=== PATIENT | female | born 1985 | race Caucasian/White ===

== ENCOUNTER 2017-05-14 09:23 | Emergency (ER) | payer SELFPAY ==
[2017-05-14] MEDS ORDERED: METHYLPREDNISOLONE 125 MG INJ ONE (09:55)
[2017-05-14] MEDS ORDERED: DIPHENHYDRAMINE 50 MG/ML VIAL ONE (09:55)
[2017-05-14] MEDS ORDERED: ALBUTEROL 2.5 MG/3 ML NEB SOL ONE (09:55)
[2017-05-14] MEDS ORDERED: FAMOTIDINE 20 MG/2 ML VIAL IV ONE (09:56)
[2017-05-14] MEDS ORDERED: NA CHLORIDE 0.9% 1,000 ML ONE (09:56)
--- NOTE | 2017-05-14 11:27 | EDPHYS ---
Physician Documentation [facility] Name: Joana Nguyen Age: 31 yrs Sex: Female : 1985 Arrival Date: 05/14/2017 Time: 09:26 Bed 8 Private MD: ED Physician Shaheen White HPI: 05/14 09:40 This 31 yrs old Female presents to ER via Ambulatory with complaints of kb Allergic Reaction. 09:40 The patient presents with shortness of breath. Onset: The symptoms/episode kb began/occurred just prior to arrival. Associated signs and symptoms: Pertinent positives: shortness of breath. Possible causes: eggs. At home the patient or guardian has treated the symptoms with nothing. Severity of symptoms: At their worst the symptoms were moderate in the emergency department the symptoms are unchanged. The patient has not experienced similar symptoms in the past. The patient has not recently seen a physician. Pt states she ate eggs at [employer] and started having an allergic reaction. Has had reactions like this in the past, but normally not from eggs. c/o wheezing, shortness of breath and sore throat. 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 - Social history:: Smoking status: Patient/guardian denies using tobacco. ROS: 09:40 Constitutional: Negative for fever, chills, and weight loss, Neck: Negative for injury, kb pain, and swelling, Cardiovascular: Negative for chest pain, palpitations, and edema, Abdomen/GI: Negative for abdominal pain, nausea, vomiting, diarrhea, and constipation, Back: Negative for injury and pain, : Negative for injury, bleeding, discharge, and swelling, MS/Extremity: Negative for injury and deformity, Skin: Negative for injury, rash, and discoloration, Neuro: Negative for headache, weakness, numbness, tingling, and seizure. 09:40 ENT: Positive for sore throat. 09:40 Respiratory: Positive for shortness of breath, wheezing. Exam: 09:40 Constitutional: This is a well developed, well nourished patient who is awake, alert, kb and in no acute distress. Head/Face: Normocephalic, atraumatic. ENT: Nares patent. No nasal discharge, no septal abnormalities noted. Tympanic membranes are normal and external auditory canals are clear. Oropharynx with no redness, swelling, or masses, exudates, or evidence of obstruction, uvula midline. Mucous membranes moist. Neck: Trachea midline, no thyromegaly or masses palpated, and no cervical lymphadenopathy. Supple, full range of motion without nuchal rigidity, or vertebral point tenderness. No Meningismus. Chest/axilla: Normal chest wall appearance and motion. Nontender with no deformity. No lesions are appreciated. Cardiovascular: Regular rate and rhythm with a normal S1 and S2. No gallops, murmurs, or rubs. Normal PMI, no JVD. No pulse deficits. Abdomen/GI: Soft, non-tender, with normal bowel sounds. No distension or tympany. No guarding or rebound. No evidence of tenderness throughout. Skin: Warm, dry with normal turgor. Normal color with no rashes, no lesions, and no evidence of cellulitis. MS/ Extremity: Pulses equal, no cyanosis. Neurovascular intact. Full, normal range of motion. Neuro: Awake and alert, GCS 15, oriented to person, place, time, and situation. Cranial nerves II-XII grossly intact. Motor strength 5/5 in all extremities. Sensory grossly intact. Cerebellar exam normal. Normal gait. 09:40 Respiratory: mild respiratory distress is noted, Respirations: normal, Breath sounds: wheezing: expiratory that is moderate, is heard diffusely. Vital Signs: 09:30 BP 144 / 96; Pulse 109; Resp 20; Temp 99.3(TE); Pulse Ox 100% on R/A; Weight 68.04 kg; hj Height 5 ft. 7 in. (170.18 cm); 10:37 BP 131 / 90; Pulse 96; Resp 18; Pulse Ox 100% on R/A; sg 11:30 BP 128 / 82; Pulse 88; Resp 18 S; Temp 98.8; Pulse Ox 100% on R/A; Pain 0/10; sg 09:30 Body Mass Index 23.49 (68.04 kg, 170.18 cm) hj MDM: 09:33 Patient medically screened. kb 10:11 Data reviewed: vital signs, nurses notes. Data interpreted: Pulse oximetry: on room air kb is 100 %. Interpretation: normal. Response to treatment: the patient's symptoms have markedly improved after treatment. 11:26 Counseling: I had a detailed discussion with the patient and/or guardian regarding: the kb historical points, exam findings, and any diagnostic results supporting the discharge/admit diagnosis, the need for outpatient follow up, a family practitioner, to return to the emergency department if symptoms worsen or persist or if there are any questions or concerns that arise at home. 05/14 09:34 Order name: IV Start; Complete Time: 09:38 kb Administered Medications: 09:45 Drug: SOLU-Medrol 125 mg Route: IVP; Site: left antecubital; sg 10:30 Follow up: Response: No adverse reaction; Marked relief of symptoms sg 09:45 Drug: Benadryl 25 mg Route: IVP; Site: left antecubital; sg 10:30 Follow up: Response: No adverse reaction; Marked relief of symptoms sg 09:45 Drug: Pepcid 20 mg Route: IVP; Site: left antecubital; sg 10:30 Follow up: Response: No adverse reaction sg 09:45 Drug: NS 0.9% 1000 ml Route: IV; Rate: 1000 ml; Site: left antecubital; sg 09:46 Drug: Albuterol 2.5 mg Route: Inhalation; sg 09:57 Follow up: Response: Wheezing diminished sg Disposition: 05/15 10:34 Co-signature as Attending Physician, Shaheen White MD I agree with the assessment and omaira plan of care. Disposition: 05/14/17 11:27 Discharged to Home. Impression: Allergy to eggs. - Condition is Stable. - Discharge Instructions: Food Allergy, [id number]. - Prescriptions for Pepcid 20 mg Oral Tablet - take 1 tablet by ORAL route every 12 hours for 5 days; 10 tablet. Prednisone 20 mg Oral Tablet - take 1 tablet by ORAL route once daily for 5 days; 5 tablet. - Medication Reconciliation Form, Thank You Letter, Antibiotic Education, Prescription Opioid Use, Work release form form. - Follow up: Private Physician; When: 2 - 3 days; Reason: Recheck today's complaints, Continuance of care, Re-evaluation by your physician. Follow up: Emergency Department; When: As needed; Reason: Worsening of condition. Signatures: Amy Eckert, COLLIN GILL-Gordy Miranda RN RN sg Anderson, Corey, MD MD cha Joaquin, Henry RN RN
--- NOTE | 2017-05-14 11:27 | ER ---
Nurse's Notes [facility] Name: Joana Nguyen Age: 31 yrs Sex: Female : 1985 Arrival Date: 05/14/2017 Time: 09:26 Bed 8 Private MD: Diagnosis: Allergy to eggs Presentation: 05/14 09:27 Presenting complaint: Patient states: i ate at [employer] this morning, eggs and i think i hj had an allergic reaction; i heard wheezing, SOB and light headed; i feel like my throat is tightening;. Transition of care: patient was not received from another setting of care. Onset: The symptoms/episode began/occurred suddenly. Onset of symptoms was May 14, 2017. Care prior to arrival: None. 09:27 Method Of Arrival: Ambulatory 09:27 Acuity: ERICKA 3 hj 09:45 Anaphylaxis evaluation, the patient reports or I have noted the following symptoms sg which indicate a significant risk of anaphylaxis: shortness of breath tachypnea. Triage Assessment: 09:30 General: Appears in no apparent distress. uncomfortable, Behavior is calm, cooperative, hj appropriate for age. Pain: Denies pain. 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 - Social history:: Smoking status: Patient/guardian denies using tobacco. Screenin:40 Abuse screen: Denies threats or abuse. Denies injuries from another. Nutritional sg screening: No deficits noted. Tuberculosis screening: No symptoms or risk factors identified. Never had TB. Fall Risk None identified. Assessment: 09:30 Respiratory: Airway is patent Respiratory effort is even, unlabored, Breath sounds with hj wheezes. 09:40 General: Appears in no apparent distress. comfortable, well groomed, well developed, sg well nourished, Behavior is cooperative, appropriate for age, anxious. Pain: Denies pain. Neuro: Level of Consciousness is awake, alert, obeys commands, Oriented to person, place, time, Tobacco Buyer are equal bilaterally Speech is normal, Facial symmetry appears normal. Cardiovascular: Heart tones S1 S2 present Capillary refill is brisk in bilateral fingers Patient's skin is warm and dry. Chest pain is denied. Respiratory: Respiratory effort is even, Respiratory pattern is symmetrical, tachypnea Breath sounds with wheezes. GI: Abdomen is round non-distended, Bowel sounds present X 4 quads. : No signs and/or symptoms were reported regarding the genitourinary system. EENT: No deficits noted. Derm: Skin is flushed, mottled, Skin temperature is warm. Musculoskeletal: No signs and/or symptoms reported regarding the musculoskeletal system. 10:08 Reassessment: Patient appears in no apparent distress at this time. Patient and/or sg family updated on plan of care and expected duration. Pain level reassessed. Patient is alert, oriented x 3, equal unlabored respirations, skin warm/dry/pink. Patient states feeling better. Patient states symptoms have improved. General: Behavior is calm, cooperative, appropriate for age. 10:25 Reassessment: Patient appears in no apparent distress at this time. Patient and/or sg family updated on plan of care and expected duration. Pain level reassessed. IV fluids infusing at this time, pt to receive bolus in entirety prior to dc to home. will continue to monitor. 11:20 Reassessment: Patient appears in no apparent distress at this time. Patient and/or sg family updated on plan of care and expected duration. Pain level reassessed. Patient is alert, oriented x 3, equal unlabored respirations, skin warm/dry/pink. IV fluids complete at this time, pt d/c to home Patient states feeling better. Patient states symptoms have improved. Vital Signs: 09:30 BP 144 / 96; Pulse 109; Resp 20; Temp 99.3(TE); Pulse Ox 100% on R/A; Weight 68.04 kg; hj Height 5 ft. 7 in. (170.18 cm); 10:37 BP 131 / 90; Pulse 96; Resp 18; Pulse Ox 100% on R/A; sg 11:30 BP 128 / 82; Pulse 88; Resp 18 S; Temp 98.8; Pulse Ox 100% on R/A; Pain 0/10; sg 09:30 Body Mass Index 23.49 (68.04 kg, 170.18 cm) ED Course: 09:26 Patient arrived in ED. mr 09:29 Triage completed. hj 09:30 Arm band placed on right wrist. hj 09:33 Amy Eckert FNP-C is PSYCHIATRICP. kb 09:33 Shaheen White MD is Attending Physician. kb 09:35 Gordy Scott, RN is Primary Nurse. sg 09:38 Inserted saline lock: 22 gauge in left antecubital area, using aseptic technique. hj 09:40 Patient has correct armband on for positive identification. Bed in low position. sg gambling monitor on. Pulse ox on. NIBP on. Warm blanket given. Head of bed elevated. 11:30 No provider procedures requiring assistance completed. IV discontinued, intact, sg bleeding controlled, No redness/swelling at site. Pressure dressing applied. Administered Medications: 09:45 Drug: SOLU-Medrol 125 mg Route: IVP; Site: left antecubital; sg 10:30 Follow up: Response: No adverse reaction; Marked relief of symptoms sg 09:45 Drug: Benadryl 25 mg Route: IVP; Site: left antecubital; sg 10:30 Follow up: Response: No adverse reaction; Marked relief of symptoms sg 09:45 Drug: Pepcid 20 mg Route: IVP; Site: left antecubital; sg 10:30 Follow up: Response: No adverse reaction sg 09:45 Drug: NS 0.9% 1000 ml Route: IV; Rate: 1000 ml; Site: left antecubital; sg 09:46 Drug: Albuterol 2.5 mg Route: Inhalation; sg 09:57 Follow up: Response: Wheezing diminished sg Outcome: 11:27 Discharge ordered by . kb 11:30 Discharged to home ambulatory, with friend. sg 11:30 Condition: good 11:30 Discharge instructions given to patient, Instructed on discharge instructions, follow up and referral plans. medication usage, safety practices, Demonstrated understanding of instructions, follow-up care, medications, Prescriptions given X 2. 11:35 Patient left the ED. sg Signatures: Amy Eckert FNP-C FNP-Ckb Gordy Scott, IAN RN Liz Villegas mr Ronny Rea RN RN hj Corrections: (The following items were deleted from the chart) 09:31 09:30 Pulse 109bpm; Resp 20bpm; Pulse Ox 100% RA; Temp 99.3F Temporal; 68.04 kg; Height hj 5 ft. 7 in.; BMI: 23.4; hj 09:39 09:30 Respiratory: Airway is patent Respiratory effort is even, unlabored, Breath hj sounds are clear hj
[2017-05-14 11:48] VITALS: TEMP 99.3; O2SAT 100
[2017-05-14 11:49] VITALS: BP 131/90
== END 2017-05-14 11:35 | disposition home or self-care (01) ==
LOC: ER 09:23
DX: R06.2 Wheezing (principal); Z91.012 Allergy to eggs; I10 Essential (primary) hypertension; G40.909 Epilepsy, unspecified, not intractable, without status epilepticus; Z88.5 Allergy status to narcotic agent
CPT/HCPCS: 96374; 96375; 99285; J2930; J7030

== ENCOUNTER 2017-06-04 13:11 | Emergency (ER) | payer SELFPAY ==
[2017-06-04 14:00] LABS: Absolute Lymphocytes (CBC) 1.7 K/uL (0.7-4.9); Absolute Monocytes 0.3 K/uL (0.1-1.3); Basophils % 0.6 % (0-1.3); Eosinophils % 2.2 % (0-4.4); Hematocrit 40.3 % (36.0-45.0); Lymphocytes % 40.6 % (15.3-44.8); MCH 29.2 pg (27.0-35.0); MCV 86.9 fL (80-100); MPV 7.7 fL (7.6-11.3); Monocytes % 7.4 % (3.3-12.3); RBC Red Blood Cell Count 4.63 M/uL (3.86-4.86)
[2017-06-04 14:17] LABS: Potassium 3.5 mEq/L (3.6-5.0)
[2017-06-04 14:20] LABS: Albumin 4.3 g/dL (3.2-5.5); Bilirubin Total 0.5 mg/dL (0.3-1.2); Protein, Total 7.4 g/dL (6.0-8.3)
[2017-06-04 14:52] LABS: Urine Blood NEGATIVE (NEG); Urine Glucose NEGATIVE (NEG); Urine Protein NEGATIVE (NEG); Urine Specific Gravity 1.025 (1.005-1.030)
[2017-06-04] MEDS ORDERED: KETOROLAC 30 MG/ML INJ ONE (15:06)
[2017-06-04] MEDS ORDERED: CYCLOBENZAPRINE 10 MG TAB ONE (15:06)
--- NOTE | 2017-06-04 15:08 | RAD REPORT ---
EXAM DESCRIPTION: Melodie Single View06/04/2017 2:12 pm CLINICAL HISTORY: Chest pain COMPARISON: March 2017 FINDINGS: The lungs appear clear of acute infiltrate. The heart is normal size IMPRESSION: No acute abnormalities displayed
--- NOTE | 2017-06-04 15:39 | EDPHYS ---
Physician Documentation [facility] Name: Joana Nguyen Age: 31 yrs Sex: Female : 1985 Arrival Date: 06/04/2017 Time: 13:13 Bed 8 Private MD: ED Physician Albert Thakkar HPI: 06/04 14:00 This 31 yrs old Female presents to ER via Ambulatory with complaints of Chest pm1 Pain. 16:52 The patient or guardian reports chest pain that is located primarily in the substernal pm1 area. The pain radiates to along right rib to the back. Associated signs and symptoms: Pertinent negatives: abdominal pain, cough, nausea, shortness of breath, vomiting, Rash. The chest pain is described as aching. Duration: The patient or guardian reports a single episode, that is still ongoing, Onset greater than 1 month ago. Modifying factors: The symptoms are alleviated by nothing. the symptoms are aggravated by deep breath, palpation of area. Severity of pain: in the emergency department the pain is unchanged. Seen at [facility] this week and told that she "has a pulled muscle.". Historical: - Allergies: 13:27 Morphine (Respiratory distress); ph - PMHx: 13:27 Hypertension; Seizures; ph - PSHx: 13:27 Tubal ligation; Cholecystectomy; hand; R breast biopsy-benign; ph - Immunization history:: Adult Immunizations up to date. - Social history:: Smoking status: unknown. ROS: 16:52 Constitutional: Negative for fever, chills, and weight loss, Eyes: Negative for injury, pm1 pain, redness, and discharge, ENT: Negative for injury, pain, and discharge, Neck: Negative for injury, pain, and swelling. 16:52 Respiratory: Negative for shortness of breath, cough, wheezing, and pleuritic chest pain, Abdomen/GI: Negative for abdominal pain, nausea, vomiting, diarrhea, and constipation, Back: Negative for injury and pain, : Negative for injury, bleeding, discharge, and swelling, MS/Extremity: Negative for injury and deformity, Skin: Negative for injury, rash, and discoloration, Neuro: Negative for headache, weakness, numbness, tingling, and seizure. 16:52 Cardiovascular: Positive for chest pain, Negative for edema, orthopnea, palpitations. Exam: 16:52 Constitutional: This is a well developed, well nourished patient who is awake, alert, pm1 and in no acute distress. Head/Face: Normocephalic, atraumatic. Eyes: Pupils equal round and reactive to light, extra-ocular motions intact. Lids and lashes normal. Conjunctiva and sclera are non-icteric and not injected. Cornea within normal limits. Periorbital areas with no swelling, redness, or edema. ENT: Nares patent. No nasal discharge, no septal abnormalities noted. Tympanic membranes are normal and external auditory canals are clear. Oropharynx with no redness, swelling, or masses, exudates, or evidence of obstruction, uvula midline. Mucous membranes moist. Neck: Trachea midline, no thyromegaly or masses palpated, and no cervical lymphadenopathy. Supple, full range of motion without nuchal rigidity, or vertebral point tenderness. No Meningismus. 16:52 Cardiovascular: Regular rate and rhythm with a normal S1 and S2. No gallops, murmurs, or rubs. No pulse deficits. Respiratory: Lungs have equal breath sounds bilaterally, clear to auscultation and percussion. No rales, rhonchi or wheezes noted. No increased work of breathing, no retractions or nasal flaring. Abdomen/GI: Soft, non-tender, with normal bowel sounds. No distension or tympany. No guarding or rebound. No evidence of tenderness throughout. Back: No spinal tenderness. No costovertebral tenderness. Full range of motion. Skin: Warm, dry with normal turgor. Normal color with no rashes, no lesions, and no evidence of cellulitis. MS/ Extremity: Pulses equal, no cyanosis. Neurovascular intact. Full, normal range of motion. 16:52 Chest/axilla: Inspection: normal, Palpation: tenderness, of the mid-sternal area, that totally reproduces the patient's complaints. 16:52 Neuro: Orientation: is normal, Motor: is normal, moves all fours, Sensation: is normal, no obvious gross deficits, Gait: is steady, at a normal pace, without difficulty. Vital Signs: 13:25 BP 143 / 105; Pulse 111; Resp 20; Temp 98.4(O); Pulse Ox 100% on R/A; Weight 70.31 kg; ph Height 5 ft. 7 in. (170.18 cm); Pain 9/10; 13:58 BP 115 / 90; Pulse 84; Resp 16; Pulse Ox 100% on R/A; la1 14:09 BP 128 / 88; Pulse 78; Resp 16; Pulse Ox 100% on R/A; la1 13:25 Body Mass Index 24.28 (70.31 kg, 170.18 cm) ph MDM: 13:18 Patient medically screened. pm1 15:37 Data reviewed: vital signs. Data interpreted: Pulse oximetry: on room air is 100 %. pm1 Interpretation: normal. Counseling: I had a detailed discussion with the patient and/or guardian regarding: the historical points, exam findings, and any diagnostic results supporting the discharge/admit diagnosis, lab results, radiology results, the need for outpatient follow up, to return to the emergency department if symptoms worsen or persist or if there are any questions or concerns that arise at home. 06/04 13:36 Order name: CBC with Diff; Complete Time: 14:08 pm1 06/04 13:36 Order name: Troponin (emerg Dept Use Only); Complete Time: 14:28 pm1 06/04 13:36 Order name: CMP; Complete Time: 14:28 pm1 06/04 14:46 Order name: Urine Dipstick--Ancillary (enter results); Complete Time: 15:22 bd 06/04 14:46 Order name: Urine --Ancillary (enter results); Complete Time: 15:22 bd 06/04 13:36 Order name: XRAY Chest (1 view); Complete Time: 15:22 pm1 06/04 13:36 Order name: EKG; Complete Time: 13:37 pm1 06/04 13:36 Order name: Cardiac monitoring; Complete Time: 13:46 pm06/04 13:36 Order name: EKG - Nurse/Tech; Complete Time: 13:46 pm1 06/04 13:36 Order name: IV Saline Lock; Complete Time: 13:46 pm06/04 13:36 Order name: Labs collected and sent; Complete Time: 13:46 pm06/04 13:36 Order name: O2 Per Protocol; Complete Time: 13:46 pm1 06/04 13:36 Order name: O2 Sat Monitoring; Complete Time: 13:46 pm06/04 13:36 Order name: Urine Dipstick-Ancillary (obtain specimen); Complete Time: 14:43 pm1 06/04 13:36 Order name: Urine Test (obtain specimen); Complete Time: 14:43 pm1 Administered Medications: 14:50 Drug: TORadol 30 mg Route: IVP; Site: right antecubital; la1 15:12 Follow up: Response: No adverse reaction; Pain is decreased la1 14:50 Drug: Flexeril 10 mg Route: PO; la1 15:12 Follow up: Response: No adverse reaction; Pain is decreased la1 Disposition: 16:13 Co-signature as Attending Physician, Albert Thakkar MD. Chart complete. rn Disposition: 06/04/17 15:38 Discharged to Home. Impression: Chest pain, unspecified. - Condition is Stable. - Discharge Instructions: Nonspecific Chest Pain. - Prescriptions for Naprosyn 500 mg Oral Tablet - take 1 tablet by ORAL route 2 times per day take with food; 30 tablet. Cyclobenzaprine 10 mg Oral Tablet - take 1 tablet by ORAL route every 8 hours As needed; 30 tablet. - Medication Reconciliation Form, Thank You Letter form. - Follow up: Emergency Department; When: As needed; Reason: Worsening of condition. Follow up: Private Physician; When: 2 - 3 days; Reason: Recheck today's complaints, Continuance of care, Re-evaluation by your physician. - Problem is new. - Symptoms have improved. Signatures: Dispatcher [employer] Albert Orr MD MD rn Attema, Lee, RN RN la1 Barbie Martinez RN RN ph Marinas, Patrick, TAMERA GREASE AND TALLOW PUMPER pm1 Corrections: (The following items were deleted from the chart) 13:38 13:36 BASIC METABOLIC PANEL+[id number].LAB.BRZ ordered. EDMD EDMD
--- NOTE | 2017-06-04 15:39 | ER ---
Nurse's Notes [facility] Name: Joana Nguyen Age: 31 yrs Sex: Female : 1985 Arrival Date: 06/04/2017 Time: 13:13 Bed 8 Private MD: Diagnosis: Chest pain, unspecified Presentation: 06/04 13:23 Presenting complaint: Patient states: I have been having pain in my chest that wraps ph around my side and goes through to my back." Pt reports pain in epigastric region that radiated to R side and back, also c/o N/V/D and reports pain w/ respiration. Transition of care: patient was not received from another setting of care. Onset of symptoms was June 04, 2017. Care prior to arrival: None. 13:23 Method Of Arrival: Ambulatory ph 13:23 Acuity: ERICKA 3 ph Historical: - Allergies: 13:27 Morphine (Respiratory distress); ph - PMHx: 13:27 Hypertension; Seizures; ph - PSHx: 13:27 Tubal ligation; Cholecystectomy; hand; R breast biopsy-benign; ph - Immunization history:: Adult Immunizations up to date. - Social history:: Smoking status: unknown. Screenin:45 Abuse screen: Denies threats or abuse. Nutritional screening: No deficits noted. la1 Tuberculosis screening: No symptoms or risk factors identified. Fall Risk None identified. Assessment: 13:44 General: Appears in no apparent distress. Behavior is calm, cooperative. Pain: la1 Complains of pain in chest Pain radiates to right lateral posterior chest and right lateral anterior chest Pain currently is 4 out of 10 on a pain scale. Pain: Pain began 2 weeks ago. Neuro: Level of Consciousness is awake, alert, obeys commands, Oriented to person, place, time, situation. Cardiovascular: Heart tones S1 S2 present Capillary refill < 3 seconds Patient's skin is warm and dry. Respiratory: Airway is patent Respiratory effort is even, unlabored, Respiratory pattern is regular, symmetrical, Breath sounds are clear bilaterally. GI: No signs and/or symptoms were reported involving the gastrointestinal system. : No signs and/or symptoms were reported regarding the genitourinary system. 14:52 Reassessment: Patient appears in no apparent distress at this time. No changes from la1 previously documented assessment. Patient and/or family updated on plan of care and expected duration. Pain level reassessed. Vital Signs: 13:25 BP 143 / 105; Pulse 111; Resp 20; Temp 98.4(O); Pulse Ox 100% on R/A; Weight 70.31 kg; ph Height 5 ft. 7 in. (170.18 cm); Pain 9/10; 13:58 BP 115 / 90; Pulse 84; Resp 16; Pulse Ox 100% on R/A; la1 14:09 BP 128 / 88; Pulse 78; Resp 16; Pulse Ox 100% on R/A; la1 13:25 Body Mass Index 24.28 (70.31 kg, 170.18 cm) ph ED Course: 13:13 Patient arrived in ED. as 13:16 Marlon Todd NP is PHCP. pm1 13:16 Albert Thakkar MD is Attending Physician. pm1 13:25 Triage completed. ph 13:27 Ángel Nunez RN is Primary Nurse. la1 13:27 Arm band placed on. ph 13:45 No provider procedures requiring assistance completed. Inserted saline lock: 20 gauge la1 in right antecubital area, using aseptic technique. Blood collected. Patient maintains SpO2 saturation greater than 95% on room air. 13:46 Placed in gown. Bed in low position. Call light in reach. industrial engineering on. Pulse ox la1 on. NIBP on. 14:11 X-ray completed. Portable x-ray completed in exam room. Patient tolerated procedure jw2 well. 14:11 XRAY Chest (1 view) In Process Unspecified. EDMS 15:45 IV discontinued, intact, bleeding controlled, No redness/swelling at site. Pressure la1 dressing applied. Administered Medications: 14:50 Drug: TORadol 30 mg Route: IVP; Site: right antecubital; la1 15:12 Follow up: Response: No adverse reaction; Pain is decreased la1 14:50 Drug: Flexeril 10 mg Route: PO; la1 15:12 Follow up: Response: No adverse reaction; Pain is decreased la1 Outcome: 15:38 Discharge ordered by . pm1 15:45 Discharged to home ambulatory. la1 15:45 Condition: stable 15:45 Discharge instructions given to patient, Instructed on discharge instructions, follow up and referral plans. medication usage, Demonstrated understanding of instructions, follow-up care, medications, Prescriptions given X 2. 15:46 Patient left the ED. la1 Signatures: Dispatcher [employer] EDRenetta Crowder Lee, RN RN la1 Barbie Martinez RN RN Marlon Todd, TAMERA FELTER TENNIS BALLS pm1 Raeann Mina jw2
[2017-06-04 15:51] VITALS: TEMP 98.4; O2SAT 100
[2017-06-04 15:53] VITALS: BP 128/88
--- NOTE | 2017-06-05 06:30 | EKG ---
Test Date: 2017-06-04 Test Time: 13:36:28 Copy Reader: MEASUREMENT RESULTS: Intervals: Rate: 90 VA: 134 QRSD: 90 QT: 354 QTc: 433 [place]: P: 79 VA: 134 QRS: 79 T: 62 INTERPRETIVE STATEMENTS: Normal sinus rhythm Normal ECG No previous ECG available for comparison Electronically Signed On 06-05-17 06:28:52 CDT by Derian Hayes
== END 2017-06-04 15:46 | disposition home or self-care (01) ==
LOC: ER 13:11
DX: R07.9 Chest pain, unspecified (principal); I10 Essential (primary) hypertension; Z88.5 Allergy status to narcotic agent
CPT/HCPCS: 36415; 71045; 80053; 81003; 81025; 84484; 85025; 93005; 96374; 99285

== ENCOUNTER 2017-08-06 20:11 | Emergency (ER) | payer SELFPAY ==
[2017-08-06 20:52] LABS: Absolute Lymphocytes (CBC) 1.8 K/uL (0.7-4.9); Absolute Monocytes 0.3 K/uL (0.1-1.3); Absolute Neutrophil 3.1 K/uL (1.8-8.0); Basophils % 0.6 % (0-1.3); Eosinophils % 2.1 % (0-4.4); Hematocrit 37.5 % (36.0-45.0); Lymphocytes % 33.7 % (15.3-44.8); MCV 84.1 fL (80-100); MPV 7.2 fL (7.6-11.3); Monocytes % 5.6 % (3.3-12.3); RBC Red Blood Cell Count 4.46 M/uL (3.86-4.86)
[2017-08-06 20:53] LABS: Barbiturates NEGATIVE (NEGATIVE); Benzodiazepines NEGATIVE (NEGATIVE); Cocaine NEGATIVE (NEGATIVE); Opiates NEGATIVE (NEGATIVE); Phencyclidine NEGATIVE (NEGATIVE); THC Cannibis NEGATIVE (NEGATIVE)
[2017-08-06 20:56] LABS: Protime INR 0.97
[2017-08-06 21:01] LABS: Urine Blood TRACE (NEG); Urine Glucose NEGATIVE (NEG); Urine Protein NEGATIVE (NEG); Urine Specific Gravity <1.005 (1.005-1.030); Urine pH 6.5 (5.0-7.0)
[2017-08-06 21:02] LABS: Glucose Level 93 mg/dL (65-120)
[2017-08-06 21:06] LABS: METHAMPHETAM POSITIVE (NEGATIVE)
[2017-08-06 21:08] LABS: ALT/SGPT 11 IU/L (10-60); AST/SGOT 20 IU/L (10-42); Albumin 4.2 g/dL (3.2-5.5); Alkaline Phosphatase 72 IU/L (42-121); BUN Blood Urea Nitrogen 10 mg/dL (6-20); Bilirubin Direct < 0.1 mg/dL (0-0.2); Bilirubin Total 0.2 mg/dL (0.3-1.2); Protein, Total 7.5 g/dL (6.0-8.3)
[2017-08-06 21:10] LABS: Alcohol Serum/Plasma < 10 mg/dl; Bicarbonate 27 mEq/L (21-31); Sodium Level 136 mEq/L (135-145)
[2017-08-06] MEDS ORDERED: POTASSIUM 25 MEQ EFFERV TAB ONE (21:44)
--- NOTE | 2017-08-06 22:15 | RAD REPORT ---
EXAM DESCRIPTION: RAD - C Spine Ap/Lat - 08/06/2017 9:30 pm CLINICAL HISTORY: Neck pain status post injury FINDINGS: No fracture or dislocation is seen. A lucency overlying the dens likely represents artifact
[2017-08-06] MEDS ORDERED: ACETAMINOPHEN 325 MG TABLET ONE (23:13)
--- NOTE | 2017-08-07 07:33 | EKG ---
Test Date: 2017-08-06 Test Time: 20:34:28 Studio Director: RUSLAN MEASUREMENT RESULTS: Intervals: Rate: 79 OK: 142 QRSD: 92 QT: 388 QTc: 444 [place]: P: 81 OK: 142 QRS: 83 T: 63 INTERPRETIVE STATEMENTS: Normal sinus rhythm Normal ECG Compared to ECG 06/04/2017 13:36:28 No significant changes Electronically Signed On 08-07-17 07:32:39 CDT by Derian Hayes
[2017-08-07 08:55] LABS: BUN Blood Urea Nitrogen 9 mg/dL (6-20); Bicarbonate 26 mEq/L (21-31); Glucose Level 76 mg/dL (65-120); Potassium 3.3 mEq/L (3.6-5.0); Sodium Level 141 mEq/L (135-145)
--- NOTE | 2017-08-07 08:55 | EDPHYS ---
Physician Documentation [facility] Name: Joana Nguyen Age: 31 yrs Sex: Female : 1985 Arrival Date: 08/06/2017 Time: 20:13 Bed 6 Private MD: ED Physician Shaheen White HPI: 08/06 20:34 This 31 yrs old Female presents to ER via EMS with complaints of Suicidal pkl Ideation. 20:34 The patient presents to the emergency department with depression, a history of a pkl suicide gesture, suicide ideation, and the patient has a plan, Patient tried to choked herself with belt. Onset: The symptoms/episode began/occurred this morning. Associated signs and symptoms: The patient has no apparent associated signs or symptoms. Historical: - Allergies: 20:20 Morphine (Respiratory distress); tl2 - Home Meds: 20:20 "I'm supposed to take Dilantin, but i've been out." [Active]; Adderall 30 mg Oral tab 1 tl2 tab once daily [Active]; Lunesta 2 mg Oral tab 1 tab once daily [Active]; Seroquel 25 mg in the AM and 100 mg in the evening [Active]; - PMHx: 20:20 Hypertension; Seizures; psych; tl2 - Immunization history:: Adult Immunizations up to date. - Social history:: Smoking status: Patient uses tobacco products, denies chronic smoking, but will smoke occasionally. - Ebola Screening: : No symptoms or risks identified at this time. ROS: 20:34 Eyes: Negative for injury, pain, redness, and discharge, ENT: Negative for injury, pkl pain, and discharge. 20:34 Neck: Positive for pain with movement, of the back of neck. 20:34 Cardiovascular: Negative for chest pain. 20:34 Respiratory: Negative for cough, shortness of breath. 20:34 Abdomen/GI: Negative for abdominal pain, nausea, vomiting, and diarrhea. 20:34 Back: Negative for acute changes. 20:34 : Negative for urinary symptoms. 20:34 MS/extremity: Negative for acute changes. 20:34 Skin: Negative for rash. 20:34 Neuro: Negative for altered mental status, loss of consciousness. 20:34 Psych: Positive for depression, suicide gesture, suicidal ideation. Exam: 20:34 Head/Face: Normocephalic, atraumatic. Eyes: Pupils equal round and reactive to light, pkl extra-ocular motions intact. Lids and lashes normal. Conjunctiva and sclera are non-icteric and not injected. Cornea within normal limits. Periorbital areas with no swelling, redness, or edema. ENT: Nares patent. No nasal discharge, no septal abnormalities noted. Tympanic membranes are normal and external auditory canals are clear. Oropharynx with no redness, swelling, or masses, exudates, or evidence of obstruction, uvula midline. Mucous membranes moist. Neck: Trachea midline, no thyromegaly or masses palpated, and no cervical lymphadenopathy. Supple, full range of motion without nuchal rigidity, or vertebral point tenderness. No Meningismus. Chest/axilla: Normal chest wall appearance and motion. Nontender with no deformity. No lesions are appreciated. Cardiovascular: Regular rate and rhythm with a normal S1 and S2. No gallops, murmurs, or rubs. Normal PMI, no JVD. No pulse deficits. Respiratory: Lungs have equal breath sounds bilaterally, clear to auscultation and percussion. No rales, rhonchi or wheezes noted. No increased work of breathing, no retractions or nasal flaring. Abdomen/GI: Soft, non-tender, with normal bowel sounds. No distension or tympany. No guarding or rebound. No evidence of tenderness throughout. Back: No spinal tenderness. No costovertebral tenderness. Full range of motion. Skin: Warm, dry with normal turgor. Normal color with no rashes, no lesions, and no evidence of cellulitis. MS/ Extremity: Pulses equal, no cyanosis. Neurovascular intact. Full, normal range of motion. Neuro: Awake and alert, GCS 15, oriented to person, place, time, and situation. Cranial nerves II-XII grossly intact. Motor strength 5/5 in all extremities. Sensory grossly intact. Cerebellar exam normal. Normal gait. 20:34 Psych: Behavior/mood is cooperative, Affect is calm, Patient having thoughts of suicide. Judgement / Insight is impaired. Vital Signs: 20:20 BP 127 / 97; Pulse 86; Resp 18; Temp 98.1(O); Pulse Ox 100% on R/A; Weight 68.04 kg; tl2 Height 5 ft. 7 in. (170.18 cm); Pain 0/10; 21:18 BP 122 / 62; Pulse 82; Resp 16; Pulse Ox 99% on R/A; mt 0611 00:02 BP 138 / 98; Pulse 73; Resp 18; Temp 98.2(T); Pulse Ox 97% ; mt 01:05 BP 127 / 97; Pulse 80; Resp 18; Pulse Ox 99% on R/A; mt 06:08 BP 125 / 83; Pulse 75; Resp 16; Temp 97.7(T); Pulse Ox 100% ; mt 08:00 BP 117 / 58; Pulse 58; Resp 20; Temp 98.2; Pulse Ox 100% ; sv 09:00 BP 124 / 91; Pulse 72; Resp 20; Pulse Ox 99% ; sv 12:00 BP 143 / 83; Pulse 88; Resp 20; Pulse Ox 98% on R/A; sv 16:00 BP 127 / 84; Pulse 70; Resp 20; Temp 98.5; Pulse Ox 99% ; sv 06 20:20 Body Mass Index 23.49 (68.04 kg, 170.18 cm) tl2 MDM: 08/06 20:15 Patient medically screened. pkl 21:39 Data reviewed: vital signs, nurses notes, lab test result(s), radiologic studies. pkl 08/07 07:12 Patient medically screened. omaira 08/06 20:29 Order name: Acetaminophen; Complete Time: 21:36 pkl 08/06 20:29 Order name: Basic Metabolic Panel; Complete Time: 21:36 pkl 08/06 20:29 Order name: CBC with Diff; Complete Time: 21:36 pkl 08/06 20:29 Order name: ETOH Level; Complete Time: 21:36 pkl 08/06 20:29 Order name: Hepatic Function; Complete Time: 21:36 pkl 08/06 20:29 Order name: PT-INR; Complete Time: 21:36 pkl 08/06 20:29 Order name: Ptt, Activated; Complete Time: 21:36 pkl 08/06 20:29 Order name: Salicylate; Complete Time: 21:36 pkl 08/06 20:29 Order name: Urine Drug Screen; Complete Time: 21:36 pkl 08/06 20:44 Order name: Urine Dipstick--Ancillary (enter results) rg2 08/06 20:44 Order name: Test, Serum rg2 08/06 20:45 Order name: Urine Dipstick-Ancillary; Complete Time: 21:36 EDMS 08/06 20:45 Order name: Test Serum, Qual[place]; Complete Time: 00:19 EDMS 08/07 08:34 Order name: Chem 7; Complete Time: 16:50 sv 08/06 20:29 Order name: EKG; Complete Time: 20:30 pkl 08/06 20:29 Order name: EKG - Nurse/Tech; Complete Time: 20:37 pkl 08/06 20:29 Order name: IV Saline Lock; Complete Time: 20:46 pkl 08/06 20:29 Order name: Labs collected and sent; Complete Time: 20:46 pkl 08/06 20:29 Order name: Urine Dipstick-Ancillary (obtain specimen); Complete Time: 20:37 pkl 08/06 20:29 Order name: XRAY C Spine Ap/lat; Complete Time: 00:19 pkl 08/07 07:20 Order name: Diet Regular; Complete Time: 07:20 [facility] 08/07 13:03 Order name: Diet Regular; Complete Time: 13:04 ss Administered Medications: 08/06 21:47 Drug: Klor-Con Effervescent Tablet 50 mEq Route: PO; tl2 23:47 Drug: Tylenol 650 mg Route: PO; tl2 08/07 17:29 Drug: Potassium Effervescent Tablet 50 mEq Route: PO; sv 17:29 Follow up: Response: No adverse reaction sv Disposition: 08/07/17 17:30 Discharged to Home. Impression: Suicidal ideations, Major depressive disorder, recurrent. - Condition is Stable. - Discharge Instructions: Depression, Adult, Helping Someone Who is Suicidal, No-harm Safety Contract, Depression, Adult, [id number]. - Medication Reconciliation Form, Thank You Letter, Antibiotic Education, Prescription Opioid Use form. - Follow up: Private Physician; When: 2 - 3 days; Reason: Recheck today's complaints, Continuance of care, Re-evaluation by your physician. - Problem is new. - Symptoms have improved. Signatures: Dispatcher [employer] EDVT Shanna Patel RN RN sv Anderson, Corey, MD MD cha Lam, Pin, MD MD pkl Knox, Taylor, RN RN tl2 Corrections: (The following items were deleted from the chart) 17:29 08:54 08/07/2017 08:54 Transfer ordered to Psych Facility. Diagnosis is Suicidal omaira ideations; Suicide attempt; Adverse effect of amphetamines. Reason for transfer: Higher level of care. Accepting physician is to psych. Condition is Stable. Problem is new. Symptoms have improved. omaira 17:44 17:30 08/07/2017 17:30 Discharged to Home. Impression: Suicidal ideations; Major sv depressive disorder, recurrent. Condition is Stable. Forms are Medication Reconciliation Form, Thank You Letter, Antibiotic Education, Prescription Opioid Use. Follow up: Private Physician; When: 2 - 3 days; Reason: Recheck today's complaints, Continuance of care, Re-evaluation by your physician. Problem is new. Symptoms have improved. omaira
--- NOTE | 2017-08-07 08:55 | ER ---
Nurse's Notes [facility] Name: Joana Nguyen Age: 31 yrs Sex: Female : 1985 Arrival Date: 08/06/2017 Time: 20:13 Bed 6 Private MD: Diagnosis: Suicidal ideations;Major depressive disorder, recurrent Presentation: 08/06 20:16 Presenting complaint: EMS states: Pt attempted to hang herself approx 11:30 this tl2 morning. Was found by her with belt around her neck and tied to the bed frame. Pt became aggressive when loosened belt. Pt called mental health deputy and EMS was called when they found pt at her house. Pt is AOx4 and cooperative. Pt wants help but refuses any medication and states "I am going to leave, they're just going to have to arrest me". [place] stated that this was pt's third suicide attempt in six months. Transition of care: patient was not received from another setting of care. Onset of symptoms was August 06, 2017 at 11:30. Risk Assessment: Do you want to hurt yourself or someone else? Patient reports desire/thoughts of hurting themselves or someone else. Provider notified. Initial Sepsis Screen: Does the patient meet any 2 criteria? No. Patient's initial sepsis screen is negative. Does the patient have a suspected source of infection? No. Patient's initial sepsis screen is negative. Care prior to arrival: None. Pt denied c-collar. 20:16 Method Of Arrival: EMS: [facility] tl2 20:16 Acuity: ERICKA 2 tl2 Triage Assessment: 20:20 General: Appears in no apparent distress. Behavior is cooperative, flat. Pain: Denies tl2 pain. Neuro: Level of Consciousness is awake, alert, obeys commands, Oriented to person, place, time, situation. Cardiovascular: Denies chest pain. Respiratory: Airway is patent Respiratory effort is even, unlabored, Respiratory pattern is regular, symmetrical. GI: No signs and/or symptoms were reported involving the gastrointestinal system. : No signs and/or symptoms were reported regarding the genitourinary system. Derm: Skin is pink, warm \\T\\ dry. small alonzo on neck from belt. Historical: - Allergies: 20:20 Morphine (Respiratory distress); tl2 - Home Meds: 20:20 "I'm supposed to take Dilantin, but i've been out." [Active]; Adderall 30 mg Oral tab 1 tl2 tab once daily [Active]; Lunesta 2 mg Oral tab 1 tab once daily [Active]; Seroquel 25 mg in the AM and 100 mg in the evening [Active]; - PMHx: 20:20 Hypertension; Seizures; psych; tl2 - Immunization history:: Adult Immunizations up to date. - Social history:: Smoking status: Patient uses tobacco products, denies chronic smoking, but will smoke occasionally. - Ebola Screening: : No symptoms or risks identified at this time. Screenin:33 Abuse screen: Denies threats or abuse. Nutritional screening: No deficits noted. tl2 Tuberculosis screening: No symptoms or risk factors identified. Fall Risk None identified. Assessment: 20:33 General: see triage assessment. tl2 22:00 Reassessment: Patient appears in no apparent distress at this time. Patient and/or tl1 family updated on plan of care and expected duration. Pain level reassessed. Patient is alert, oriented x 3, equal unlabored respirations, skin warm/dry/pink. 08/07 00:00 Reassessment: Patient appears in no apparent distress at this time. Patient and/or tl1 family updated on plan of care and expected duration. Pain level reassessed. Patient is alert, oriented x 3, equal unlabored respirations, skin warm/dry/pink. 02:00 Reassessment: Patient appears in no apparent distress at this time. Pt appears to be tl1 sleeping, RR even and unlabored. 04:25 Reassessment: Pt remains asleep, RR even and unlabored. tl1 07:30 General: Appears in no apparent distress. comfortable, Behavior is calm, cooperative, sv appropriate for age. Pain: Denies pain. Neuro: Level of Consciousness is awake, alert, obeys commands, Oriented to person, place, time, situation, Moves all extremities. Respiratory: Respiratory effort is even, unlabored, Respiratory pattern is regular, symmetrical. Derm: Skin is pink, warm \\T\\ dry. 08:40 Reassessment: Patient appears in no apparent distress at this time. Patient and/or sv family updated on plan of care and expected duration. Pain level reassessed. Patient is alert, oriented x 3, equal unlabored respirations, skin warm/dry/pink. Pt given breakfast tray. 10:20 Reassessment: Patient appears in no apparent distress at this time. Patient and/or sv family updated on plan of care and expected duration. Pain level reassessed. Patient is alert, oriented x 3, equal unlabored respirations, skin warm/dry/pink. 12:30 Reassessment: Patient appears in no apparent distress at this time. Patient and/or sv family updated on plan of care and expected duration. Pain level reassessed. Patient is alert, oriented x 3, equal unlabored respirations, skin warm/dry/pink. Pt given lunch tray. 14:54 Reassessment: Patient appears in no apparent distress at this time. Patient and/or sv family updated on plan of care and expected duration. Pain level reassessed. Patient is alert, oriented x 3, equal unlabored respirations, skin warm/dry/pink. 15:57 Reassessment: [facility] called for a Dr Pena per pt's request. sv 16:23 Reassessment: Pt signed exclusionary form from [facility]. sv 17:20 Reassessment: Dr White speaking with the pt. sv 17:42 Reassessment: Patient appears in no apparent distress at this time. Patient and/or sv family updated on plan of care and expected duration. Pain level reassessed. Patient is alert, oriented x 3, equal unlabored respirations, skin warm/dry/pink. Pt's family is going to be with the pt and will watcher her. Pt and spouse asking for information on [facility] assistance. Pt has paperwork from [facility] with information on how to reach out to them. Pt stated that she was going to call them. Psych: 08/06 20:35 Subjective: Patient's mood is irritable, Delusions are denied, Hallucinations are tl2 denied Having thoughts of suicide. Plan for suicide is tried to choke herself with a belt. Objective: Patient is cooperative, defensive, irritable, Speech is normal, Affect is flat. Interventions: Removed personal items and placed in bag. Patient placed in hospital gown. Urine collected and sent for urine drug test. Suicide Risk Assessment: Sad Person Scale: Sex of patient: Female: Score 0 points. Age of patient: Score 1 point if patient 15-34. Depression: Score 1 point if signs of depression are present. Previous Attempt: Score 1 point if patient has previously attempted suicide. Substance Abuse: Score 0 point if patient does not abuse alcohol or drugs. Rational Thinking: Score 0 point if patient has rational thinking. Social Support: Score 0 if social support is present/available. Organized Plan: Score 1 point if patient had a plan in place. Relationship: Score 0 point if patient has a spouse or domestic partner. Chronic Sickness: Score 0 point if patient does not have a chronic illness, debilitating, or severe disorder. TOTAL POINTS: If total points are 3-4, proposed clinical action is close follow-up/consider hospitalization. Safety Checks: Personal items have been removed. Door is open. No visitors are present at this time. Pt denies substance abuse. Commitment: Patient will be a voluntary commitment. Pt has a warrant from mental health deputy. Vital Signs: 20:20 BP 127 / 97; Pulse 86; Resp 18; Temp 98.1(O); Pulse Ox 100% on R/A; Weight 68.04 kg; tl2 Height 5 ft. 7 in. (170.18 cm); Pain 0/10; 21:18 BP 122 / 62; Pulse 82; Resp 16; Pulse Ox 99% on R/A; mt 06/11 00:02 BP 138 / 98; Pulse 73; Resp 18; Temp 98.2(T); Pulse Ox 97% ; mt 01:05 BP 127 / 97; Pulse 80; Resp 18; Pulse Ox 99% on R/A; mt 06:08 BP 125 / 83; Pulse 75; Resp 16; Temp 97.7(T); Pulse Ox 100% ; mt 08:00 BP 117 / 58; Pulse 58; Resp 20; Temp 98.2; Pulse Ox 100% ; sv 09:00 BP 124 / 91; Pulse 72; Resp 20; Pulse Ox 99% ; sv 12:00 BP 143 / 83; Pulse 88; Resp 20; Pulse Ox 98% on R/A; sv 16:00 BP 127 / 84; Pulse 70; Resp 20; Temp 98.5; Pulse Ox 99% ; sv 06/10 20:20 Body Mass Index 23.49 (68.04 kg, 170.18 cm) tl2 ED Course: 08/06 20:13 Patient arrived in ED. rg2 20:14 Darian Bullard MD is Attending Physician. pkl 20:16 Michelle Martínez, IAN is Primary Nurse. tl2 20:19 Triage completed. tl2 20:20 Arm band placed on right wrist. EKG completed in triage. Results shown to . tl2 20:25 FLORESITA Kan sitting one on one with patient. mt 20:30 Safety checks: Items removed: yes. Door open/sign placed on door: yes. Family/friend mt present: no. 20:33 Patient has correct armband on for positive identification. Placed in gown. Bed in low tl2 position. Call light in reach. Side rails up X 1. 20:38 Urine collected: clean catch specimen, clear. aa1 20:40 Inserted saline lock: 20 gauge in left antecubital area, using aseptic technique. Blood tl1 collected. placed by patrice Redding. 20:45 Safety checks: Items removed: yes. Door open/sign placed on door: yes. Family/friend mt present: yes. 20:47 Test, Serum Sent. tl2 21:00 Safety checks: Items removed: yes. Door open/sign placed on door: yes. Family/friend mt present: yes. 21:15 Safety checks: Items removed: yes. Door open/sign placed on door: yes. Family/friend mt present: yes. 21:24 XRAY C Spine Ap/lat In Process Unspecified. EDMS 21:43 Safety checks: Items removed: yes. Door open/sign placed on door: yes. Family/friend mt present: yes. 22:00 Safety checks: Items removed: yes. Door open/sign placed on door: yes. Family/friend mt present: no. 22:15 Safety checks: Items removed: yes. Door open/sign placed on door: yes. Family/friend mt present: no. 22:29 Safety checks: Items removed: yes. Door open/sign placed on door: yes. Family/friend mt present: no. 22:40 Safety checks: Items removed: yes. Door open/sign placed on door: yes. Family/friend mt present: no. 22:50 Safety checks: Items removed: yes. Door open/sign placed on door: yes. Family/friend mt present: no. 22:59 Safety checks: Items removed: yes. Door open/sign placed on door: yes. Family/friend mt present: no. 23:15 Safety checks: Items removed: yes. Door open/sign placed on door: yes. Family/friend mt present: no. 23:30 Safety checks: Items removed: yes. Door open/sign placed on door: Other: [facility] mt represantive present. 23:45 Safety checks: Items removed: yes. Door open/sign placed on door: yes. Family/friend mt present: Other: [facility] [employer] sales representative present. 08/07 00:01 Safety checks: Items removed: yes. Door open/sign placed on door: yes. Family/friend mt present: no. 00:15 Safety checks: Items removed: yes. Door open/sign placed on door: yes. Family/friend mt present: no. 00:25 Safety checks: Items removed: yes. Door open/sign placed on door: yes. Family/friend mt present: no. 00:40 Safety checks: Items removed: yes. Door open/sign placed on door: yes. Family/friend mt present: no. 00:55 Safety checks: Items removed: yes. Door open/sign placed on door: yes. Family/friend mt present: no. 01:10 Safety checks: Items removed: yes. Door open/sign placed on door: yes. Family/friend mt present: no. 01:25 Safety checks: Items removed: yes. Door open/sign placed on door: yes. Family/friend mt present: no. 01:40 Safety checks: Items removed: yes. Door open/sign placed on door: yes. Family/friend mt present: no. Bed in low position. Side rails up X 1. 01:55 Safety checks: Items removed: yes. Door open/sign placed on door: yes. Family/friend mt present: no. 02:10 Safety checks: Items removed: yes. Door open/sign placed on door: yes. Family/friend mt present: no. 02:25 Safety checks: Items removed: yes. Door open/sign placed on door: yes. Family/friend mt present: no. 02:41 Safety checks: Items removed: yes. Door open/sign placed on door: yes. Family/friend mt present: no. 02:55 Safety checks: Items removed: yes. Door open/sign placed on door: yes. Family/friend mt present: no. 03:10 Safety checks: Items removed: yes. Door open/sign placed on door: yes. Family/friend mt present: no. 03:25 Safety checks: Items removed: yes. Door open/sign placed on door: yes. Family/friend mt present: no. 03:40 Safety checks: Items removed: yes. Door open/sign placed on door: yes. Family/friend mt present: no. 03:55 Safety checks: Items removed: yes. Door open/sign placed on door: yes. Family/friend mt present: no. 04:10 Safety checks: Items removed: yes. Door open/sign placed on door: yes. Family/friend mt present: no. 04:25 Safety checks: Items removed: yes. Door open/sign placed on door: yes. Family/friend mt present: no. 04:40 Safety checks: Items removed: yes. Door open/sign placed on door: yes. Family/friend mt present: no. 05:25 Safety checks: Items removed: yes. Door open/sign placed on door: yes. Family/friend mt present: no. 05:45 Safety checks: Items removed: yes. Door open/sign placed on door: yes. Family/friend mt present: no. 06:00 Safety checks: Items removed: yes. Door open/sign placed on door: yes. Family/friend mt present: no. patient up ambulated to bathroom, back in bed. 06:30 Safety checks: Items removed: yes. Door open/sign placed on door: yes. Family/friend mt present: no. 06:45 Safety checks: Items removed: yes. Door open/sign placed on door: yes. Family/friend mt present: no. 07:00 Safety checks: Items removed: yes. Door open/sign placed on door: yes. Family/friend mt present: no. 07:12 Attending Physician role handed off by Darian Bullard MD omaira 07:12 Shaheen White MD is Attending Physician. omaira 07:15 No apparent distress. Resting quietly. Safety Checks: Personal items have been removed. sv The door is open or patient has been placed in a hallway bed/chair. There are no family/friend visitors at this time Sitter present at this time. 07:16 Primary Nurse role handed off by Michelle Martínez RN sv 07:16 Shanna Patel RN is Primary Nurse. sv 07:30 No apparent distress. Resting quietly. Safety Checks: Personal items have been removed. sv The door is open or patient has been placed in a hallway bed/chair. There are no family/friend visitors at this time Sitter present at this time. 07:45 No apparent distress. Resting quietly. Safety Checks: Personal items have been removed. sv The door is open or patient has been placed in a hallway bed/chair. There are no family/friend visitors at this time Sitter present at this time. 08:00 No apparent distress. Resting quietly. Safety Checks: Personal items have been removed. sv The door is open or patient has been placed in a hallway bed/chair. There are no family/friend visitors at this time Sitter present at this time. 08:06 Urine Dipstick--Ancillary (enter results) Sent. sv 08:15 Safety Checks: Personal items have been removed. The door is open or patient has been tw2 placed in a hallway bed/chair. There are no family/friend visitors at this time Sitter present at this time. 08:30 Safety Checks: Personal items have been removed. The door is open or patient has been tw2 placed in a hallway bed/chair. There are no family/friend visitors at this time Sitter present at this time. 08:39 Repeat lab(s) drawn. by ED staff, sent to lab. IV discontinued, intact, discontinued sv per pt request. Inserted saline lock: 20 gauge in left antecubital area, using aseptic technique. ,using aseptic technique. done by Kevin ibrahim Blood collected. 08:45 No apparent distress. Resting quietly. Appears to be sleeping. Safety Checks: Personal tw2 items have been removed. The door is open or patient has been placed in a hallway bed/chair. There are no family/friend visitors at this time Sitter present at this time. 08:46 All clinical's refaxed to all psych facilities. All facilities have no beds they are ag pending discharge. 09:00 Safety Checks: Personal items have been removed. The door is open or patient has been sv placed in a hallway bed/chair. A family member and/or friend is present and encouraged to stay. Sitter present at this time. 09:15 Safety Checks: Personal items have been removed. The door is open or patient has been sv placed in a hallway bed/chair. There are no family/friend visitors at this time Sitter present at this time. 09:30 Safety Checks: Personal items have been removed. The door is open or patient has been sv placed in a hallway bed/chair. There are no family/friend visitors at this time Sitter present at this time. 09:45 Safety Checks: Personal items have been removed. The door is open or patient has been sv placed in a hallway bed/chair. There are no family/friend visitors at this time. 10:00 Safety Checks: Personal items have been removed. The door is open or patient has been sv placed in a hallway bed/chair. There are no family/friend visitors at this time Sitter present at this time. 10:15 Safety Checks: Personal items have been removed. The door is open or patient has been sv placed in a hallway bed/chair. There are no family/friend visitors at this time Sitter present at this time. 10:30 Safety Checks: Personal items have been removed. The door is open or patient has been sv placed in a hallway bed/chair. There are no family/friend visitors at this time Sitter present at this time. 10:45 Safety Checks: Personal items have been removed. The door is open or patient has been sv placed in a hallway bed/chair. There are no family/friend visitors at this time Sitter present at this time. 11:00 Safety Checks: Personal items have been removed. The door is open or patient has been sv placed in a hallway bed/chair. There are no family/friend visitors at this time Sitter present at this time. 11:15 Safety Checks: Personal items have been removed. The door is open or patient has been sv placed in a hallway bed/chair. There are no family/friend visitors at this time Sitter present at this time. 11:30 Safety Checks: Personal items have been removed. The door is open or patient has been sv placed in a hallway bed/chair. There are no family/friend visitors at this time Sitter present at this time. 11:45 Safety Checks: Personal items have been removed. The door is open or patient has been sv placed in a hallway bed/chair. There are no family/friend visitors at this time Sitter present at this time. 12:00 Safety Checks: Personal items have been removed. The door is open or patient has been sv placed in a hallway bed/chair. There are no family/friend visitors at this time Sitter present at this time. 12:15 Safety Checks: Personal items have been removed. The door is open or patient has been sv placed in a hallway bed/chair. There are no family/friend visitors at this time Sitter present at this time. 12:30 Safety Checks: Personal items have been removed. The door is open or patient has been sv placed in a hallway bed/chair. There are no family/friend visitors at this time Sitter present at this time. 12:45 Safety Checks: Personal items have been removed. The door is open or patient has been sv placed in a hallway bed/chair. There are no family/friend visitors at this time Sitter present at this time. 12:58 Safety checks: Items removed: yes. Door open/sign placed on door: yes. Family/friend em1 present: Other: sitter present. 13:00 Safety Checks: Personal items have been removed. The door is open or patient has been sv placed in a hallway bed/chair. There are no family/friend visitors at this time Sitter present at this time. 13:15 Safety Checks: Personal items have been removed. The door is open or patient has been sv placed in a hallway bed/chair. There are no family/friend visitors at this time Sitter present at this time. 13:30 Safety Checks: Personal items have been removed. The door is open or patient has been sv placed in a hallway bed/chair. There are no family/friend visitors at this time Sitter present at this time. 13:45 Safety Checks: Personal items have been removed. The door is open or patient has been sv placed in a hallway bed/chair. There are no family/friend visitors at this time Sitter present at this time. 14:00 Safety Checks: Personal items have been removed. The door is open or patient has been sv placed in a hallway bed/chair. There are no family/friend visitors at this time Sitter present at this time. 14:15 Safety Checks: Personal items have been removed. The door is open or patient has been sv placed in a hallway bed/chair. There are no family/friend visitors at this time Sitter present at this time. 14:30 Safety Checks: Personal items have been removed. The door is open or patient has been sv placed in a hallway bed/chair. There are no family/friend visitors at this time Sitter present at this time. 14:45 Safety Checks: Personal items have been removed. The door is open or patient has been sv placed in a hallway bed/chair. There are no family/friend visitors at this time Sitter present at this time. 15:00 Safety Checks: Personal items have been removed. The door is open or patient has been sv placed in a hallway bed/chair. There are no family/friend visitors at this time Sitter present at this time. 15:15 Safety Checks: Personal items have been removed. The door is open or patient has been sv placed in a hallway bed/chair. There are no family/friend visitors at this time Sitter present at this time. 15:30 Safety Checks: Personal items have been removed. The door is open or patient has been sv placed in a hallway bed/chair. There are no family/friend visitors at this time Sitter present at this time. 15:45 Safety Checks: Personal items have been removed. The door is open or patient has been sv placed in a hallway bed/chair. There are no family/friend visitors at this time Sitter present at this time. 16:00 Safety Checks: Personal items have been removed. The door is open or patient has been sv placed in a hallway bed/chair. There are no family/friend visitors at this time Sitter present at this time. 16:15 Safety Checks: Personal items have been removed. The door is open or patient has been sv placed in a hallway bed/chair. There are no family/friend visitors at this time Sitter present at this time. 16:30 Safety Checks: Personal items have been removed. The door is open or patient has been sv placed in a hallway bed/chair. There are no family/friend visitors at this time Sitter present at this time. 16:45 Safety Checks: Personal items have been removed. The door is open or patient has been sv placed in a hallway bed/chair. There are no family/friend visitors at this time Sitter present at this time. 17:00 Safety Checks: Personal items have been removed. The door is open or patient has been sv placed in a hallway bed/chair. There are no family/friend visitors at this time Sitter present at this time. 17:15 Safety Checks: Personal items have been removed. The door is open or patient has been sv placed in a hallway bed/chair. There are no family/friend visitors at this time Sitter present at this time. 17:30 Safety Checks: Personal items have been removed. The door is open or patient has been sv placed in a hallway bed/chair. There are no family/friend visitors at this time Sitter present at this time. 17:42 No provider procedures requiring assistance completed. IV discontinued, intact, sv bleeding controlled, No redness/swelling at site. Pressure dressing applied. 17:45 Safety Checks: Personal items have been removed. The door is open or patient has been sv placed in a hallway bed/chair. There are no family/friend visitors at this time Sitter present at this time. Administered Medications: 08/06 21:47 Drug: Klor-Con Effervescent Tablet 50 mEq Route: PO; tl2 23:47 Drug: Tylenol 650 mg Route: PO; tl2 08/07 17:29 Drug: Potassium Effervescent Tablet 50 mEq Route: PO; sv 17:29 Follow up: Response: No adverse reaction sv Intake: 08:41 PO: 240ml (Juice); Total: 240ml. sv Outcome: 08:54 ER care complete, transfer ordered by MD. omaira 16:54 Transferred by ground EMS to [facility], Transfer form completed. Note: sv Report called to Renee SOSA 16:54 Condition: stable 16:54 Instructed on the need for transfer. 17:30 Discharge ordered by . omaira 17:44 Patient left the ED. sv Signatures: Dispatcher [employer] EDMS Rossana Lainez rg2 Shanna Patel RN RN sv Kerline Levi RN RN aa1 Shaheen White MD MD cha Lam, Pin, MD MD pkl Martinez, Eric em1 Ele Miller RN RN tl1 Carol Ann Altamirano Tara, RN RN tw2 Michelle Martínez RN RN tl2 Miladis Tuttle sc Corrections: (The following items were deleted from the chart) 00:09 00:02 BP 138 / 101; Pulse 73bpm; Resp 18bpm; Pulse Ox 97%; Temp 98.2F Tympanic; mt mt 08:41 08:40 Reassessment: Patient appears in no apparent distress at this time. Patient sv and/or family updated on plan of care and expected duration. Pain level reassessed. Patient is alert, oriented x 3, equal unlabored respirations, skin warm/dry/pink. sv
[2017-08-07] MEDS ORDERED: POTASSIUM 25 MEQ EFFERV TAB ONE (17:14)
[2017-08-07 19:32] VITALS: BP 127/84; TEMP 98.5; O2SAT 99
== END 2017-08-07 17:44 | disposition home or self-care (01) ==
LOC: ER 20:11
DX: F33.9 Major depressive disorder, recurrent, unspecified (principal); I10 Essential (primary) hypertension; G40.909 Epilepsy, unspecified, not intractable, without status epilepticus; Z72.0 Tobacco use; Z88.5 Allergy status to narcotic agent
CPT/HCPCS: 36415; 72040; 80048; 80076; 80307; 80320; 80329; 81003; 84703; 85025; 85610; 85730; 93005; 99285

== ENCOUNTER 2017-11-21 15:03 | Emergency (ER) | payer SELFPAY ==
[2017-11-21] MEDS ORDERED: ALBUTEROL 2.5 MG/3 ML NEB SOL ONE (15:36)
[2017-11-21] MEDS ORDERED: KETOROLAC 30 MG/ML INJ ONE (15:36)
--- NOTE | 2017-11-21 15:49 | RAD REPORT ---
EXAM DESCRIPTION: RAD - Chest Pa And Lat (2 Views) - 11/21/2017 3:43 pm CLINICAL HISTORY: Right-sided chest pain COMPARISON: Portable June 04, Two view chest 2011 TECHNIQUE: PA and lateral views of the chest were obtained. FINDINGS: The lungs are clear. Lung markings are not significantly different from the comparison im aging. Heart size is normal and central vasculature is within normal limits. No pleural effusion or pneumothorax seen. No acute bony finding noted. No aortic abnormality. IMPRESSION: No acute cardiopulmonary process. No significant change from comparison.
[2017-11-21] MEDS ORDERED: NA CHLORIDE 0.9% 1,000 ML ONE (15:54)
--- NOTE | 2017-11-21 16:41 | EDPHYS ---
Physician Documentation [facility] Name: Joana Nguyen Age: 32 yrs Sex: Female : 1985 Arrival Date: 11/21/2017 Time: 15:04 Bed 5 Private MD: None, None ED Physician Osmin Laws HPI: 11/21 15:36 This 32 yrs old Female presents to ER via Ambulatory with complaints of Chest snw Pressure. 15:36 The patient or guardian reports chest pain that is located primarily in the right snw lateral posterior chest. The pain does not radiate. Associated signs and symptoms: Pertinent positives: cough, shortness of breath. The chest pain is described as sharp. Duration: The patient or guardian reports a single episode, with exacerbations. Modifying factors: The symptoms are alleviated by nothing. the symptoms are aggravated by breathing, cough, deep breath, movement. Severity of pain: At its worst the pain was moderate severe. The patient has not experienced similar symptoms in the past. It is unknown whether or not the patient has recently seen a physician. smokes, no surgery, travel, or control. 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 - Social history:: Smoking status: Patient uses tobacco products, smokes one-half pack cigarettes per day. - Ebola Screening: : No symptoms or risks identified at this time. ROS: 15:33 Constitutional: Negative for fever, chills, and weight loss, Eyes: Negative for injury, snw pain, redness, and discharge, ENT: Negative for injury, pain, and discharge, Neck: Negative for injury, pain, and swelling, Cardiovascular: Negative for chest pain, palpitations, and edema, Respiratory: Positive for shortness of breath, cough, wheezing, and pleuritic chest pain, Abdomen/GI: Negative for abdominal pain, nausea, vomiting, diarrhea, and constipation, Back: Negative for injury and pain, : Negative for injury, bleeding, discharge, and swelling, MS/Extremity: Negative for injury and deformity, Skin: Negative for injury, rash, and discoloration, Neuro: Negative for headache, weakness, numbness, tingling, and seizure. Exam: 15:31 Constitutional: This is a well developed, well nourished patient who is awake, alert, snw and in no acute distress. Head/Face: Normocephalic, atraumatic. Eyes: Pupils equal round and reactive to light, extra-ocular motions intact. Lids and lashes normal. Conjunctiva and sclera are non-icteric and not injected. Cornea within normal limits. Periorbital areas with no swelling, redness, or edema. ENT: Nares patent. No nasal discharge, no septal abnormalities noted. Tympanic membranes are normal and external auditory canals are clear. Oropharynx with no redness, swelling, or masses, exudates, or evidence of obstruction, uvula midline. Mucous membranes moist. Neck: Trachea midline, no thyromegaly or masses palpated, and no cervical lymphadenopathy. Supple, full range of motion without nuchal rigidity, or vertebral point tenderness. No Meningismus. Chest/axilla: Normal chest wall appearance and motion. Nontender with no deformity. No lesions are appreciated. Cardiovascular: Regular rate and rhythm with a normal S1 and S2. No gallops, murmurs, or rubs. Normal PMI, no JVD. No pulse deficits. Abdomen/GI: Soft, non-tender, with normal bowel sounds. No distension or tympany. No guarding or rebound. No evidence of tenderness throughout. Back: No spinal tenderness. No costovertebral tenderness. Full range of motion. Skin: Warm, dry with normal turgor. Normal color with no rashes, no lesions, and no evidence of cellulitis. MS/ Extremity: Pulses equal, no cyanosis. Neurovascular intact. Full, normal range of motion. Neuro: Awake and alert, GCS 15, oriented to person, place, time, and situation. Cranial nerves II-XII grossly intact. Motor strength 5/5 in all extremities. Sensory grossly intact. Cerebellar exam normal. Normal gait. Psych: Awake, alert, with orientation to person, place and time. Behavior, mood, and affect are within normal limits. 15:31 Respiratory: the patient does not display signs of respiratory distress, Respirations: shallow respirations, splinting, Breath sounds: wheezing: that is mild, is heard diffusely. Vital Signs: 15:12 BP 122 / 96; Pulse 93; Resp 18; Temp 98.4; Pulse Ox 100% on R/A; Pain 8/10; hb 15:55 BP 122 / 90; Pulse 92; Resp 14; Pulse Ox 100% on R/A; tw2 16:58 BP 116 / 84; Pulse 85; Resp 19; Pulse Ox 100% on R/A; aa5 MDM: 15:18 Patient medically screened. snw 17:07 Data reviewed: vital signs, nurses notes. Data interpreted: Pulse oximetry: on room air snw is 100 %. Interpretation: normal. Counseling: I had a detailed discussion with the patient and/or guardian regarding: the historical points, exam findings, and any diagnostic results supporting the discharge/admit diagnosis, the presence of at least one elevated blood pressure reading (>120/80) during this emergency department visit, radiology results, the need for outpatient follow up, for definitive care, to return to the emergency department if symptoms worsen or persist or if there are any questions or concerns that arise at home, smoking cessation. Special discussion: Based on the patient's history, exam, and Dx evaluation, there is no indication for emergent intervention or inpatient Tx. It is understood by the patient/guardian that if the Sx's persist or worsen they need to return immediately for re-evaluation. I have referred the patient to see his PCP for further evaluation of high blood pressure. Based on the history and exam findings, there is no indication for further emergent testing or inpatient evaluation. I discussed with the patient/guardian the need to see the primary care provider for further evaluation of the symptoms. 11/21 15:15 Order name: Chest Pa And Lat (2 Views) XRAY; Complete Time: 15:51 snw 11/21 15:33 Order name: IV Start; Complete Time: 15:34 tw2 Administered Medications: 15:30 Drug: TORadol 30 mg Route: IVP; Site: right antecubital; tw2 17:02 Follow up: Response: No adverse reaction aa5 15:33 Not Given (iv started): TORadol 60 mg IM once tw2 15:45 Drug: Albuterol 2.5 mg Route: Inhalation; tw2 17:03 Follow up: Response: No adverse reaction aa5 15:52 Drug: NS 0.9% 1000 ml Route: IV; Rate: 1 bolus; Site: right antecubital; tw2 17:51 Follow up: Response: No adverse reaction; IV Status: Completed infusion; IV Intake: tw2 1000ml Disposition: 11/21/17 16:40 Discharged to Home. Impression: Chest pain, unspecified. - Condition is Stable. - Discharge Instructions: Nonspecific Chest Pain, Chest Wall Pain, Costochondritis, Hypertension. - Prescriptions for Diclofenac Sodium 75 mg Oral Tablet Sustained Release - take 1 tablet by ORAL route 2 times per day; 30 tablet. orphenadrine citrate 100 mg Oral Tablet Sustained Release - take 1 tablet by ORAL route 2 times per day As needed; 20 tablet. - Medication Reconciliation Form, Thank You Letter, Antibiotic Education, Prescription Opioid Use, Work release form form. - Follow up: Private Physician; When: 2 - 3 days; Reason: Recheck today's complaints, Continuance of care, Re-evaluation by your physician. Follow up: Emergency Department; When: As needed; Reason: Trouble breathing, Worsening of condition. Addendum: 11/25/2017 16:54 Co-signature as Attending Physician, Osmin Laws MD. g s Signatures: Dispatcher [employer] EDMI Chandrika Mckenzie, JAIRO-C VOCATIONAL ADVISER-Csnw Oly Adames, IAN RN Bailee Faith RN RN tw2 Osmin Laws MD MD Constance Cifuentes RN aa5 Corrections: (The following items were deleted from the chart) 11/21 17:51 16:40 11/21/2017 16:40 Discharged to Home. Impression: Chest pain, unspecified. tw2 Condition is Stable. Forms are Medication Reconciliation Form, Thank You Letter, Antibiotic Education, Prescription Opioid Use. Follow up: Private Physician; When: 2 - 3 days; Reason: Recheck today's complaints, Continuance of care, Re-evaluation by your physician. Follow up: Emergency Department; When: As needed; Reason: Trouble breathing, Worsening of condition. snw
--- NOTE | 2017-11-21 16:41 | ER ---
Nurse's Notes [facility] Name: Joana Nguyen Age: 32 yrs Sex: Female : 1985 Arrival Date: 11/21/2017 Time: 15:04 Bed 5 Private MD: None, None Diagnosis: Chest pain, unspecified Presentation: 11/21 15:08 Presenting complaint: Patient states: Right sided chest pain that radiates to back, hb described as pressure, becomes sharp with deep inhalation. Also reports SOB and nonproductive cough x 2 days. Denies fever. Transition of care: patient was not received from another setting of care. Onset of symptoms was November 20, 2017. Risk Assessment: Do you want to hurt yourself or someone else? Patient reports no desire to harm self or others. Care prior to arrival: None. 15:08 Method Of Arrival: Ambulatory hb 15:08 Acuity: ERICKA 3 hb 15:39 Initial Sepsis Screen: Does the patient meet any 2 criteria? No. Patient's initial tw2 sepsis screen is negative. Does the patient have a suspected source of infection? No. Patient's initial sepsis screen is negative. 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 - Social history:: Smoking status: Patient uses tobacco products, smokes one-half pack cigarettes per day. - Ebola Screening: : No symptoms or risks identified at this time. Screenin:39 Abuse screen: Denies threats or abuse. Nutritional screening: No deficits noted. tw2 Tuberculosis screening: No symptoms or risk factors identified. Fall Risk None identified. Assessment: 15:25 General: Appears in no apparent distress. Behavior is calm, cooperative, appropriate tw2 for age. Pain: Complains of pain in chest Pain does not radiate. Pain began 1 day ago. Neuro: Level of Consciousness is awake, alert, obeys commands, Oriented to person, place, time, situation. 15:25 Cardiovascular: Heart tones S1 S2 Capillary refill < 3 seconds Patient's skin is warm tw2 and dry. 15:25 Respiratory: Airway is patent Respiratory effort is even, unlabored, Respiratory tw2 pattern is regular, symmetrical, Breath sounds with wheezes bilaterally. GI: No signs and/or symptoms were reported involving the gastrointestinal system. : No signs and/or symptoms were reported regarding the genitourinary system. EENT: No signs and/or symptoms were reported regarding the EENT system. Derm: No signs and/or symptoms reported regarding the dermatologic system. Musculoskeletal: Range of motion: intact in all extremities. 15:55 Reassessment: Patient appears in no apparent distress at this time. No changes from tw2 previously documented assessment. Patient and/or family updated on plan of care and expected duration. Pain level reassessed. Patient is alert, oriented x 3, equal unlabored respirations, skin warm/dry/pink. 16:50 Reassessment: Patient appears in no apparent distress at this time. No changes from tw2 previously documented assessment. Patient and/or family updated on plan of care and expected duration. Pain level reassessed. Patient is alert, oriented x 3, equal unlabored respirations, skin warm/dry/pink. 17:50 Reassessment: Patient appears in no apparent distress at this time. No changes from tw2 previously documented assessment. Patient and/or family updated on plan of care and expected duration. Pain level reassessed. Patient is alert, oriented x 3, equal unlabored respirations, skin warm/dry/pink. Vital Signs: 15:12 BP 122 / 96; Pulse 93; Resp 18; Temp 98.4; Pulse Ox 100% on R/A; Pain 8/10; hb 15:55 BP 122 / 90; Pulse 92; Resp 14; Pulse Ox 100% on R/A; tw2 16:58 BP 116 / 84; Pulse 85; Resp 19; Pulse Ox 100% on R/A; aa5 ED Course: 15:04 Patient arrived in ED. sb2 15:05 None, None is Private Physician. sb2 15:12 Triage completed. hb 15:12 Arm band placed on left wrist. EKG completed in triage. Results shown to MD. hb 15:14 Chandrika Mckenzie FNP-C is PHCP. snw 15:14 Osmin Laws MD is Attending Physician. snw 15:14 Bailee Faith, RN is Primary Nurse. tw2 15:25 Inserted saline lock: 20 gauge in right antecubital area, using aseptic technique. tw2 Blood collected. Patient maintains SpO2 saturation greater than 95% on room air. 15:30 Placed in gown. Bed in low position. Adult w/ patient. ekg monitor tech on. Pulse ox on. tw2 NIBP on. 15:38 Chest Pa And Lat (2 Views) XRAY In Process Unspecified. EDMS 17:02 Awaiting: completion of IV fluids PRIOR to discharge. aa5 17:50 No provider procedures requiring assistance completed. IV discontinued, intact, tw2 bleeding controlled, No redness/swelling at site. Pressure dressing applied, per Rocky Campos. Administered Medications: 15:30 Drug: TORadol 30 mg Route: IVP; Site: right antecubital; tw2 17:02 Follow up: Response: No adverse reaction aa5 15:33 Not Given (iv started): TORadol 60 mg IM once tw2 15:45 Drug: Albuterol 2.5 mg Route: Inhalation; tw2 17:03 Follow up: Response: No adverse reaction aa5 15:52 Drug: NS 0.9% 1000 ml Route: IV; Rate: 1 bolus; Site: right antecubital; tw2 17:51 Follow up: Response: No adverse reaction; IV Status: Completed infusion; IV Intake: tw2 1000ml Intake: 17:51 IV: 1000ml; Total: 1000ml. tw2 Outcome: 16:40 Discharge ordered by . snw 17:51 Patient left the ED. tw2 17:51 Discharged to home ambulatory. tw2 17:51 Condition: stable 17:51 Discharge instructions given to patient, Instructed on discharge instructions, follow up and referral plans. no drinking with medication, no driving heavy equipment, medication usage, Demonstrated understanding of instructions, follow-up care, medications, Prescriptions given X 2. Signatures: Dispatcher [employer] EDNJ Chandrika Mckenzie, JAMESC APPLICATION DEVELOPMENT TEAM LEAD-Pepew Constance Cifuentes RN RN aa5 Oly Adames RN RN Bailee Faith RN RN tw2 Brittany Donnelly sb2 Corrections: (The following items were deleted from the chart) 15:38 15:25 Cardiovascular: Heart tones S1 S2 Capillary refill < 3 seconds Patient's skin is tw2 warm and dry. tw2
[2017-11-21 18:33] VITALS: TEMP 98.4; O2SAT 100
[2017-11-21 18:35] VITALS: BP 116/84
--- NOTE | 2017-11-22 09:49 | EKG ---
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
== END 2017-11-21 17:51 | disposition home or self-care (01) ==
LOC: ER 15:03
DX: R07.9 Chest pain, unspecified (principal); F17.210 Nicotine dependence, cigarettes, uncomplicated; I10 Essential (primary) hypertension; Z88.5 Allergy status to narcotic agent
CPT/HCPCS: 71046; 93005; 96361; 96374; 99285; J7030

== ENCOUNTER 2018-06-19 07:49 | Emergency (ER) | payer SELFPAY ==
[2018-06-19] MEDS ORDERED: HYDROCODONE/APAP 10/325 TAB ONE (08:31)
[2018-06-19] MEDS ORDERED: ONDANSETRON 4 MG (ODT) TAB ONE (08:39)
--- NOTE | 2018-06-19 08:59 | RAD REPORT ---
EXAM DESCRIPTION: RAD - Humerus Right - 06/19/2018 8:50 am CLINICAL HISTORY: PAIN COMPARISON: No comparisons FINDINGS: No fracture or dislocation seen.
--- NOTE | 2018-06-19 09:04 | RAD REPORT ---
EXAM DESCRIPTION: RAD - Elbow Right 3 View - 06/19/2018 8:47 am CLINICAL HISTORY: PAIN COMPARISON: No comparisons FINDINGS: No acute fracture or dislocation seen.
--- NOTE | 2018-06-19 09:22 | EDPHYS ---
Physician Documentation [facility] Name: Joana Nguyen Age: 32 yrs Sex: Female : 1985 Arrival Date: 06/19/2018 Time: 07:51 Bed 20 Private MD: ED Physician Shaheen White HPI: 06/19 08:16 This 32 yrs old Female presents to ER via Ambulatory with complaints of Arm omaira Pain. 08:16 The patient or guardian complains of decreased range of motion. The complaints affect omaira the anterior aspect of right shoulder, right bicep, right antecubital area, posterior aspect of right shoulder, right tricep and right elbow. Context: The problem was sustained at home, resulted from a fall. Onset: The symptoms/episode began/occurred 1 day(s) ago. Treatment prior to arrival includes: no previous treatment. Modifying factors: The symptoms are alleviated by remaining still, the symptoms are aggravated by movement, bending arm. Associated signs and symptoms: The patient has no apparent associated signs or symptoms. Severity of symptoms: At their worst the symptoms were moderate, in the emergency department the symptoms are unchanged. The patient has not experienced similar symptoms in the past. 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 - Social history:: Smoking status: Patient uses tobacco products, denies chronic smoking, but will smoke occasionally. - Ebola Screening: : No symptoms or risks identified at this time. - Family history:: not pertinent. ROS: 08:16 Constitutional: Negative for fever, chills, and weight loss, Eyes: Negative for injury, omaira pain, redness, and discharge, ENT: Negative for injury, pain, and discharge, Neck: Negative for injury, pain, and swelling, Cardiovascular: Negative for chest pain, palpitations, and edema, Respiratory: Negative for shortness of breath, cough, wheezing, and pleuritic chest pain, Abdomen/GI: Negative for abdominal pain, nausea, vomiting, diarrhea, and constipation, Back: Negative for injury and pain, : Negative for injury, bleeding, discharge, and swelling, Skin: Negative for injury, rash, and discoloration, Neuro: Negative for headache, weakness, numbness, tingling, and seizure, Psych: Negative for depression, anxiety, suicide ideation, homicidal ideation, and hallucinations, Allergy/Immunology: Negative for hives, rash, and allergies, Endocrine: Negative for neck swelling, polydipsia, polyuria, polyphagia, and marked weight changes, Hematologic/Lymphatic: Negative for swollen nodes, abnormal bleeding, and unusual bruising. 08:16 MS/extremity: Positive for decreased range of motion, pain, tenderness, of the right arm. Exam: 08:16 Constitutional: This is a well developed, well nourished patient who is awake, alert, omaira and in no acute distress. Head/Face: Normocephalic, atraumatic. Eyes: Pupils equal round and reactive to light, extra-ocular motions intact. Lids and lashes normal. Conjunctiva and sclera are non-icteric and not injected. Cornea within normal limits. Periorbital areas with no swelling, redness, or edema. ENT: Nares patent. No nasal discharge, no septal abnormalities noted. Tympanic membranes are normal and external auditory canals are clear. Oropharynx with no redness, swelling, or masses, exudates, or evidence of obstruction, uvula midline. Mucous membranes moist. Neck: Trachea midline, no thyromegaly or masses palpated, and no cervical lymphadenopathy. Supple, full range of motion without nuchal rigidity, or vertebral point tenderness. No Meningismus. Chest/axilla: Normal chest wall appearance and motion. Nontender with no deformity. No lesions are appreciated. Cardiovascular: Regular rate and rhythm with a normal S1 and S2. No gallops, murmurs, or rubs. Normal PMI, no JVD. No pulse deficits. Respiratory: Lungs have equal breath sounds bilaterally, clear to auscultation and percussion. No rales, rhonchi or wheezes noted. No increased work of breathing, no retractions or nasal flaring. Abdomen/GI: Soft, non-tender, with normal bowel sounds. No distension or tympany. No guarding or rebound. No evidence of tenderness throughout. Back: No spinal tenderness. No costovertebral tenderness. Full range of motion. Skin: Warm, dry with normal turgor. Normal color with no rashes, no lesions, and no evidence of cellulitis. MS/ Extremity: Pulses equal, no cyanosis. Neurovascular intact. Full, normal range of motion. Neuro: Awake and alert, GCS 15, oriented to person, place, time, and situation. Cranial nerves II-XII grossly intact. Motor strength 5/5 in all extremities. Sensory grossly intact. Cerebellar exam normal. Normal gait. Psych: Awake, alert, with orientation to person, place and time. Behavior, mood, and affect are within normal limits. Vital Signs: 07:55 BP 149 / 117; Pulse 97; Resp 18; Temp 98.0(TE); Pulse Ox 100% on R/A; Weight 68.04 kg aa5 (R); Height 5 ft. 7 in. (170.18 cm) (R); Pain 7/10; 07:55 Body Mass Index 23.49 (68.04 kg, 170.18 cm) aa5 MDM: 07:58 Patient medically screened. [facility] 08:26 Data reviewed: vital signs, nurses notes, lab test result(s), radiologic studies. [facility] 06/19 08:16 Order name: Elbow Right 3 View XRAY [facility] 06/19 08:16 Order name: Humerus Right XRAY [facility] 06/19 08:16 Order name: Sling; Complete Time: 08:29 [facility] 06/19 08:16 Order name: Ice pack; Complete Time: 08:29 [facility] Administered Medications: 08:29 Drug: [place] 10 mg-325 mg 1 tabs Route: PO; ph 09:44 Follow up: Response: No adverse reaction; Pain is decreased bp 08:30 Drug: Zofran 4 mg Route: PO; ph 09:44 Follow up: Response: Nausea is decreased bp Disposition: 06/19/18 09:22 Discharged to Home. Impression: Fall due to bumping against object, Pain in right arm, Pain in right elbow. - Condition is Stable. - Discharge Instructions: Fall Prevention in the Home, Musculoskeletal Pain, Elbow Contusion, Fall Prevention in the Home, [id number], Elbow Contusion, [id number]. - Prescriptions for Motrin IB 200 mg Oral Tablet - take 2 tablet by ORAL route every 6 hours As needed as needed with food; 30 tablet. - Medication Reconciliation Form, Thank You Letter, Antibiotic Education, Prescription Opioid Use form. - Follow up: Private Physician; When: 2 - 3 days; Reason: Recheck today's complaints, Continuance of care, Re-evaluation by your physician. Follow up: Gordy Rodrigez; When: 2 - 3 days; Reason: Recheck today's complaints, Continuance of care, Re-evaluation by your physician. - Problem is new. - Symptoms have improved. Signatures: Dispatcher [employer] EDMS Shaheen White MD MD cha Calderon, Audri, IAN RN aa5 Barbie Martinez RN RN Blanco Delarosa RN RN bp Corrections: (The following items were deleted from the chart) 09:45 09:22 06/19/2018 09:22 Discharged to Home. Impression: Fall due to bumping against bp object; Pain in right arm; Pain in right elbow. Condition is Stable. Discharge Instructions: Fall Prevention in the Home, Musculoskeletal Pain, Elbow Contusion, Fall Prevention in the Home, [id number], Elbow Contusion, [id number]. Prescriptions for Motrin IB 200 mg Oral Tablet - take 2 tablet by ORAL route every 6 hours As needed as needed with food; 30 tablet. and Forms are Medication Reconciliation Form, Thank You Letter, Antibiotic Education, Prescription Opioid Use. Follow up: Private Physician; When: 2 - 3 days; Reason: Recheck today's complaints, Continuance of care, Re-evaluation by your physician. Follow up: Gordy Rodrigez; When: 2 - 3 days; Reason: Recheck today's complaints, Continuance of care, Re-evaluation by your physician. Problem is new. Symptoms have improved. omaira
--- NOTE | 2018-06-19 09:22 | ER ---
Nurse's Notes [facility] Name: Joana Nguyen Age: 32 yrs Sex: Female : 1985 Arrival Date: 06/19/2018 Time: 07:51 Bed 20 Private MD: Diagnosis: Fall due to bumping against object;Pain in right arm;Pain in right elbow Presentation: 06/19 07:53 Presenting complaint: Patient states: "I was moving a couch down the stairs and I slid aa5 and fell". pt c/o right arm pain, denies LOC. Transition of care: patient was not received from another setting of care. Onset of symptoms was June 18, 2018. Risk Assessment: Do you want to hurt yourself or someone else? Patient reports no desire to harm self or others. Initial Sepsis Screen: Does the patient meet any 2 criteria? No. Patient's initial sepsis screen is negative. Does the patient have a suspected source of infection? No. Patient's initial sepsis screen is negative. Care prior to arrival: None. 07:53 Method Of Arrival: Ambulatory aa5 07:53 Acuity: ERICKA 4 aa5 Triage Assessment: 08:37 General: Appears in no apparent distress. uncomfortable, Behavior is cooperative, bp appropriate for age, anxious. Pain: Complains of pain in right arm. EENT: No deficits noted. Neuro: Level of Consciousness is awake, alert, obeys commands, Oriented to person, place, time, situation, Appropriate for age. Cardiovascular: No deficits noted. Respiratory: Airway is patent Respiratory effort is even, unlabored, Respiratory pattern is regular, symmetrical. GI: No signs and/or symptoms were reported involving the gastrointestinal system. : No signs and/or symptoms were reported regarding the genitourinary system. Derm: No deficits noted. Musculoskeletal: Circulation, motion, and sensation intact. Range of motion: intact in all extremities. 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 - Social history:: Smoking status: Patient uses tobacco products, denies chronic smoking, but will smoke occasionally. - Ebola Screening: : No symptoms or risks identified at this time. - Family history:: not pertinent. Screenin:47 Abuse screen: Denies threats or abuse. Denies injuries from another. Nutritional bp screening: No deficits noted. Tuberculosis screening: No symptoms or risk factors identified. Fall Risk None identified. Assessment: 08:00 General: SEE TRIAGE NOTE. bp 08:46 Reassessment: RETURNED FROM XRAY. bp 09:42 Reassessment: PT D/C HOME AMBULATORY WITH FAMILY, DX WITH ELBOW CONTUSION. bp Vital Signs: 07:55 BP 149 / 117; Pulse 97; Resp 18; Temp 98.0(TE); Pulse Ox 100% on R/A; Weight 68.04 kg aa5 (R); Height 5 ft. 7 in. (170.18 cm) (R); Pain 7/10; 07:55 Body Mass Index 23.49 (68.04 kg, 170.18 cm) aa5 ED Course: 07:51 Patient arrived in ED. as 07:53 Arm band placed on. aa5 07:54 Triage completed. aa5 07:55 Shaheen White MD is Attending Physician. omaira 08:37 Blanco Delarosa, IAN is Primary Nurse. bp 08:47 Elbow Right 3 View XRAY In Process Unspecified. EDMS 08:47 Patient has correct armband on for positive identification. Bed in low position. Call bp light in reach. Side rails up X2. Adult w/ patient. 08:50 Humerus Right XRAY In Process Unspecified. EDMS 09:22 Gordy Rodrigez MD is Referral Physician. omaira 09:42 No provider procedures requiring assistance completed. Patient did not have IV access bp during this emergency room visit. Administered Medications: 08:29 Drug: [place] 10 mg-325 mg 1 tabs Route: PO; ph 09:44 Follow up: Response: No adverse reaction; Pain is decreased bp 08:30 Drug: Zofran 4 mg Route: PO; ph 09:44 Follow up: Response: Nausea is decreased bp Outcome: 09:22 Discharge ordered by . omaira 09:43 Discharged to home ambulatory, with family. bp 09:43 Condition: stable 09:43 Discharge instructions given to patient, Instructed on discharge instructions, follow up and referral plans. medication usage, Demonstrated understanding of instructions, follow-up care, medications, Prescriptions given X 1. 09:45 Patient left the ED. bp Signatures: Dispatcher [employer] EDMS Shaheen White MD MD cha Martinez, Amelia as Calderon, Audri, RN RN aa5 Barbie Martinez RN RN Blanco Delarosa RN RN bp
[2018-06-19 09:55] VITALS: BP 149/117; TEMP 98; O2SAT 100
== END 2018-06-19 09:45 | disposition home or self-care (01) ==
LOC: ER 07:49
DX: M25.521 Pain in right elbow (principal); M79.601 Pain in right arm; W18.00XA Striking against unspecified object with subsequent fall, initial encounter; Y92.009 Unspecified place in unspecified non-institutional (private) residence as the place of occurrence of the external cause; I10 Essential (primary) hypertension; Z88.5 Allergy status to narcotic agent; Z72.0 Tobacco use
CPT/HCPCS: 99283

== ENCOUNTER 2018-08-02 16:21 | Emergency (ER) | payer OTHER, SELFPAY ==
--- NOTE | 2018-08-02 17:15 | ER ---
Nurse's Notes [facility] Name: Joana Nguyen Age: 32 yrs Sex: Female : 1985 Arrival Date: 08/02/2018 Time: 16:25 Bed 14 Private MD: Diagnosis: Otitis media, unspecified, bilateral Presentation: 08/02 16:28 Presenting complaint: Patient states: Ear "tickling" in right ear for 2 days. aj Transition of care: patient was not received from another setting of care. Onset of symptoms was July 31, 2018. Risk Assessment: Do you want to hurt yourself or someone else? Patient reports no desire to harm self or others. Initial Sepsis Screen: Does the patient meet any 2 criteria? No. Patient's initial sepsis screen is negative. Does the patient have a suspected source of infection? No. Patient's initial sepsis screen is negative. Care prior to arrival: None. 16:28 Method Of Arrival: Ambulatory aj 16:28 Acuity: ERICKA 5 aj Triage Assessment: 16:29 General: Appears in no apparent distress. comfortable, Behavior is calm, cooperative, aj appropriate for age. Pain: Denies pain. EENT: Reports irritation to right ear. Neuro: Level of Consciousness is awake, alert, obeys commands, Oriented to person, place, time, situation, Appropriate for age. Respiratory: Airway is patent Respiratory effort is even, unlabored, Respiratory pattern is regular, symmetrical. Derm: Skin is intact, is healthy with good turgor, Skin is pink, warm \\T\\ dry. normal. 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 - Social history:: Smoking status: Patient uses tobacco products, smokes one-half pack cigarettes per day. - Ebola Screening: : Patient negative for fever greater than or equal to 101.5 degrees Fahrenheit, and additional compatible Ebola Virus Disease symptoms Patient denies exposure to infectious person Patient denies travel to an Ebola-affected area in the 21 days before illness onset No symptoms or risks identified at this time. Screenin:35 Abuse screen: Denies threats or abuse. Nutritional screening: No deficits noted. rb1 Tuberculosis screening: No symptoms or risk factors identified. Fall Risk None identified. Assessment: 16:35 General: Appears in no apparent distress. comfortable, Behavior is calm, cooperative. rb1 Pain: Complains of pain in right ear Pain currently is 6 out of 10 on a pain scale. Pain began 1 day ago. Neuro: Level of Consciousness is awake, alert, obeys commands, Oriented to person, place, time, situation. Cardiovascular: Capillary refill < 3 seconds is brisk in bilateral fingers. Respiratory: Airway is patent Respiratory effort is even, unlabored, Respiratory pattern is regular, symmetrical. GI: No signs and/or symptoms were reported involving the gastrointestinal system. : No signs and/or symptoms were reported regarding the genitourinary system. EENT: Reports bubbling sound in her right ear. Derm: Skin is pink, warm \\T\\ dry. 17:15 Reassessment: Patient appears in no apparent distress at this time. No changes from rb1 previously documented assessment. Vital Signs: 16:29 BP 130 / 88; Pulse 93; Resp 18; Temp 98.1; Pulse Ox 100% on R/A; Weight 68.04 kg; aj Height 5 ft. 7 in. (170.18 cm); 16:29 Body Mass Index 23.49 (68.04 kg, 170.18 cm) ED Course: 16:25 Patient arrived in ED. ds1 16:29 Triage completed. aj 16:29 Arm band placed on left wrist. Patient placed in an exam room. aj 16:32 Shaheen Regalado PA is PHCP. cp 16:32 Shaheen White MD is Attending Physician. cp 16:35 Patient has correct armband on for positive identification. Bed in low position. Call rb1 light in reach. Side rails up X 1. Pulse ox on. NIBP on. 16:45 Claudette Pena, RN is Primary Nurse. rb1 17:24 No provider procedures requiring assistance completed. Patient did not have IV access rb1 during this emergency room visit. Administered Medications: No medications were administered Outcome: 17:11 Discharge ordered by . cp 17:24 Discharged to home ambulatory, with significant other. hb 17:24 Condition: stable 17:24 Discharge instructions given to patient, Instructed on discharge instructions, follow up and referral plans. medication usage, Demonstrated understanding of instructions, follow-up care, medications, Prescriptions given X 2. 17:24 Patient left the ED. hb Signatures: Sandra Stauffer RN RN Landy Flores ds1 Shaheen Regalado PA PA cp Claudette Pena, RN RN rb1 Oly Adames RN RN hb
--- NOTE | 2018-08-02 17:16 | EDPHYS ---
Physician Documentation [facility] Name: Joana Nguyen Age: 32 yrs Sex: Female : 1985 Arrival Date: 08/02/2018 Time: 16:25 Bed 14 Private MD: ED Physician Shaheen White HPI: 08/02 17:02 This 32 yrs old Female presents to ER via Ambulatory with complaints of right cp ear pain. 17:03 The patient presents with pain, that is acute. The complaints affect the right ear. cp Onset: The symptoms/episode began/occurred 2 day(s) ago. Associated signs and symptoms: Pertinent negatives: cough, fever, sinus trouble, sore throat, vomiting. Severity of symptoms: in the emergency department the symptoms are unchanged despite home interventions. 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 - Social history:: Smoking status: Patient uses tobacco products, smokes one-half pack cigarettes per day. - Ebola Screening: : Patient negative for fever greater than or equal to 101.5 degrees Fahrenheit, and additional compatible Ebola Virus Disease symptoms Patient denies exposure to infectious person Patient denies travel to an Ebola-affected area in the 21 days before illness onset No symptoms or risks identified at this time. ROS: 17:03 Eyes: Negative for injury, pain, redness, and discharge. cp 17:03 Constitutional: Negative for body aches, chills, fever, poor PO intake. 17:03 ENT: Positive for ear pain, Negative for drainage from ear(s), sinus pain, sore throat, difficulty swallowing, difficulty handling secretions. 17:03 Cardiovascular: Negative for chest pain, palpitations. 17:03 Respiratory: Negative for cough, shortness of breath, wheezing. 17:03 Abdomen/GI: Negative for abdominal pain, nausea, vomiting, and diarrhea. 17:03 Back: Negative for pain at rest, pain with movement. 17:03 Skin: Negative for rash. 17:03 Neuro: Negative for altered mental status, headache, weakness. 17:03 All other systems are negative. Exam: 17:08 Head/Face: Normocephalic, atraumatic. cp 17:08 Constitutional: The patient appears in no acute distress, alert, awake, non-toxic, well developed, well nourished. 17:08 Eyes: Periorbital structures: appear normal, Conjunctiva: normal, no exudate, no injection, Lids and lashes: appear normal, bilaterally. 17:08 ENT: External ear(s): are unremarkable, Ear canal(s): erythema, bilaterally, mild, TM's: bulging, is not appreciated, bilaterally, erythema, that is mild, bilaterally, Nose: is normal, Mouth: Lips: moist, Oral mucosa: pink and intact, moist, Posterior pharynx: is normal, airway is patent, no erythema, no exudate, Tonsils: are normal in appearance. 17:08 Neck: ROM/movement: is normal, is supple, without pain, no range of motions limitations, no meningismus, no nuchal rigidity, Lymph nodes: no appreciated lymphadenopathy. 17:08 Chest/axilla: Inspection: normal. 17:08 Cardiovascular: Rate: normal, Rhythm: regular. 17:08 Respiratory: the patient does not display signs of respiratory distress, Respirations: normal, no use of accessory muscles, no retractions, no splinting, no tachypnea. 17:08 Skin: no rash present. Vital Signs: 16:29 BP 130 / 88; Pulse 93; Resp 18; Temp 98.1; Pulse Ox 100% on R/A; Weight 68.04 kg; aj Height 5 ft. 7 in. (170.18 cm); 16:29 Body Mass Index 23.49 (68.04 kg, 170.18 cm) aj MDM: 16:33 Patient medically screened. cp 17:10 Data reviewed: vital signs, nurses notes, and as a result, I will discharge patient. cp Administered Medications: No medications were administered Disposition: 08/03 07:12 Co-signature as Attending Physician, Shaheen White MD I agree with the assessment and omaira plan of care. Disposition: 08/02/18 17:11 Discharged to Home. Impression: Otitis media, unspecified, bilateral. - Condition is Stable. - Discharge Instructions: Otitis Media, Adult. - Prescriptions for Amoxicillin 875 mg Oral Tablet - take 1 tablet by ORAL route every 12 hours for 10 days; 20 tablet. Ibuprofen 800 mg Oral Tablet - take 1 tablet by ORAL route every 8 hours As needed take with food; 30 tablet. - Medication Reconciliation Form, Thank You Letter, Antibiotic Education, Prescription Opioid Use form. - Follow up: Private Physician; When: 2 - 3 days; Reason: Worsening of condition. - Problem is new. - Symptoms are unchanged. Signatures: Sandra Stauffer RN RN Shaheen Tellez MD MD cha Page, Corey, PA PA cp Oly Adames RN RN hb Corrections: (The following items were deleted from the chart) 08/02 17:24 17:11 08/02/2018 17:11 Discharged to Home. Impression: Otitis media, unspecified, hb bilateral. Condition is Stable. Forms are Medication Reconciliation Form, Thank You Letter, Antibiotic Education, Prescription Opioid Use. Follow up: Private Physician; When: 2 - 3 days; Reason: Worsening of condition. Problem is new. Symptoms are unchanged. cp
[2018-08-02 19:56] VITALS: BP 130/88; TEMP 98.1; O2SAT 100
== END 2018-08-02 17:24 | disposition home or self-care (01) ==
LOC: ER 16:21
DX: H66.93 Otitis media, unspecified, bilateral (principal); I10 Essential (primary) hypertension; F17.210 Nicotine dependence, cigarettes, uncomplicated; Z88.5 Allergy status to narcotic agent
CPT/HCPCS: 99283

== ENCOUNTER 2018-09-21 18:00 | Emergency (ER) | payer MEDICAID, OTHER ==
--- NOTE | 2018-09-21 18:22 | ER ---
Nurse's Notes [facility] Name: Joana Nguyen Age: 33 yrs Sex: Female : 1985 Arrival Date: 09/21/2018 Time: 18:04 Bed 18 Private MD: None, None Diagnosis: Cellulitis of external ear Presentation: 09/21 18:15 Presenting complaint: Patient states: left ear swelling, swelling to left side of neck iw and sore throat, subjective fever since yesterday. Transition of care: patient was not received from another setting of care. Onset of symptoms was September 21, 2018. Risk Assessment: Do you want to hurt yourself or someone else? Patient reports no desire to harm self or others. Initial Sepsis Screen: Does the patient meet any 2 criteria? No. Patient's initial sepsis screen is negative. Does the patient have a suspected source of infection? No. Patient's initial sepsis screen is negative. Care prior to arrival: None. 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 Screenin:20 Abuse screen: Denies threats or abuse. Denies injuries from another. Nutritional iw screening: No deficits noted. Tuberculosis screening: No symptoms or risk factors identified. Fall Risk None identified. Assessment: 18:19 General: Appears in no apparent distress. Behavior is calm, cooperative. Pain: iw Complains of pain in left ear. Neuro: Level of Consciousness is awake, alert, obeys commands, Oriented to person, place, time, situation, Moves all extremities. Full function. Cardiovascular: Patient's skin is warm and dry. Respiratory: Respiratory effort is even, unlabored, Respiratory pattern is regular, symmetrical. GI: No signs and/or symptoms were reported involving the gastrointestinal system. EENT: Reports pain in left ear. EENT: Reports difficulty swallowing. Derm: Skin is intact, is healthy with good turgor. Musculoskeletal: Range of motion: intact in all extremities. Vital Signs: 18:18 BP 137 / 98; Pulse 96; Resp 16 S; Temp 98.4(TE); Pulse Ox 100% on R/A; Weight 68.04 kg; iw Height 5 ft. 7 in. (170.18 cm); Pain 8/10; 18:18 Body Mass Index 23.49 (68.04 kg, 170.18 cm) iw ED Course: 18:04 Patient arrived in ED. mr 18:04 None, None is Private Physician. mr 18:10 Eduardo Wolf PA is PHCP. [facility] 18:10 Shaheen White MD is Attending Physician. [facility] 18:17 Triage completed. iw 18:19 Shanna Sheehan MD is Referral Physician. m 18:19 Arm band placed on. iw 18:22 Nicko Grace LVN is Primary Nurse. em 18:30 No provider procedures requiring assistance completed. Patient did not have IV access em during this emergency room visit. Administered Medications: No medications were administered Outcome: 18:21 Discharge ordered by . [facility] 18:30 Discharged to home ambulatory. em 18:30 Condition: good 18:30 Discharge instructions given to patient, Instructed on discharge instructions, follow up and referral plans. no drinking with medication, no driving heavy equipment, medication usage, Demonstrated understanding of instructions, follow-up care, medications, Prescriptions given X 4. 18:30 Patient left the ED. em Signatures: Eduardo Wolf PA PA jmm Rivera, Mary mr Nicko Grace LVN LVN em Akila Ashton, RN RN iw
--- NOTE | 2018-09-21 18:23 | EDPHYS ---
Physician Documentation [facility] Name: Joana Nguyen Age: 33 yrs Sex: Female : 1985 Arrival Date: 09/21/2018 Time: 18:04 Bed 18 Private MD: None, None ED Physician Shaheen White HPI: 09/21 18:12 This 33 yrs old Female presents to ER via Ambulatory with complaints of Ear jmm Pain, Sore Throat. 18:12 The patient presents with pain, swelling. The complaints affect the left ear lobe. jmm Onset: The symptoms/episode began/occurred gradually, today. Modifying factors: The symptoms are alleviated by nothing, the symptoms are aggravated by pulling on ears, touching. Associated signs and symptoms: Pertinent positives: sore throat. This is a 33 year old female with a history of htn, that presents to the ED with complaints of left ear pain beginning today. Patient denies known injury. Denies recent submersion. 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 ROS: 18:18 Constitutional: Negative for fever, chills, and weight loss, Cardiovascular: Negative jmm for chest pain, palpitations, and edema, Respiratory: Negative for shortness of breath, cough, wheezing, and pleuritic chest pain. 18:18 ENT: Positive for ear pain, sore throat. 18:18 Skin: Positive for erythema. 18:18 All other systems are negative. Exam: 18:18 Constitutional: This is a well developed, well nourished patient who is awake, alert, jmm and in no acute distress. Head/Face: atraumatic. Eyes: EOMI, no conjunctival erythema appreciated 18:18 Neck: Trachea midline, Supple Chest/axilla: Normal chest wall appearance and motion. Cardiovascular: Regular rate and rhythm. No edema appreciated Respiratory: Normal respirations, no respiratory distress appreciated Abdomen/GI: Non distended, soft Back: Normal ROM 18:18 MS/ Extremity: Moves all extremities, no obvious deformities appreciated, no edema noted to the lower extremities Neuro: Awake and alert, normal gait Psych: Behavior is normal, Mood is normal, Patient is cooperative and pleasant 18:18 ENT: swelling noted to the left ear lobe, TTP, non fluctuant. No mastoid tenderness. No pharyngeal erythema appreciated, . 18:18 Skin: erythema noted to the left ear lobe, left posterior ear. Vital Signs: 18:18 BP 137 / 98; Pulse 96; Resp 16 S; Temp 98.4(TE); Pulse Ox 100% on R/A; Weight 68.04 kg; iw Height 5 ft. 7 in. (170.18 cm); Pain 8/10; 18:18 Body Mass Index 23.49 (68.04 kg, 170.18 cm) iw MDM: 18:12 Patient medically screened. [facility] 18:17 Data reviewed: vital signs, nurses notes. Counseling: I had a detailed discussion with [facility] the patient and/or guardian regarding: the historical points, exam findings, and any diagnostic results supporting the discharge/admit diagnosis. 18:18 Counseling: I had a detailed discussion with the patient and/or guardian regarding: the m need for outpatient follow up, to return to the emergency department if symptoms worsen or persist or if there are any questions or concerns that arise at home. ED course: Patient is alert and non toxic in appearance in the ED. I discussed the need to follow up with ENT for further evaluation. Patient is otherwise given strict return precautions. Patient understood and agrees with the plan of care. . Administered Medications: No medications were administered Disposition: 09/22 09:49 Co-signature as Attending Physician, Shaheen White MD I agree with the assessment and [facility] plan of care. Disposition: 09/21/18 18:21 Discharged to Home. Impression: Cellulitis of external ear. - Condition is Stable. - Discharge Instructions: Cellulitis, Adult, Otitis Externa. - Prescriptions for Bactroban 2 % Topical Ointment - Apply to affected area 1 application by TOPICAL route every 12 hours; 30 gram. Levaquin 750 mg Oral Tablet - take 1 tablet by ORAL route once daily for 10 days; 7 tablet. Tylenol- Codeine #3 300-30 mg Oral Tablet - take 1 tablet by ORAL route every 6 hours As needed; 12 tablet. Bactrim DS 800- 160 mg Oral Tablet - take 1 tablet by ORAL route every 12 hours for 10 days; 20 tablet. - Medication Reconciliation Form, Thank You Letter, Antibiotic Education, Prescription Opioid Use form. - Follow up: Shanna Sheehan MD; When: 2 - 3 days; Reason: Recheck today's complaints, Continuance of care, Re-evaluation by your physician. Signatures: Shaheen White MD MD cha Mickail, Joel, PA PA Nicko Bae, MALT HOUSE KILN OPERATOR MALT HOUSE KILN OPERATOR em Akila Ashton RN RN iw Corrections: (The following items were deleted from the chart) 09/21 18:30 18:21 09/21/2018 18:21 Discharged to Home. Impression: Cellulitis of external ear. em Condition is Stable. Forms are Medication Reconciliation Form, Thank You Letter, Antibiotic Education, Prescription Opioid Use. Follow up: Shanna Sheehan; When: 2 - 3 days; Reason: Recheck today's complaints, Continuance of care, Re-evaluation by your physician. sepideh
[2018-09-21 19:24] VITALS: BP 137/98; TEMP 98.4; O2SAT 100
== END 2018-09-21 18:30 | disposition home or self-care (01) ==
LOC: ER 18:00
DX: H60.12 Cellulitis of left external ear (principal); J02.9 Acute pharyngitis, unspecified; Z88.5 Allergy status to narcotic agent; I10 Essential (primary) hypertension
CPT/HCPCS: 99282

== ENCOUNTER 2018-12-11 16:14 | Emergency (ER) | payer MEDICAID ==
[2018-12-11] MEDS ORDERED: METHYLPREDNISOLONE 125 MG INJ ONE (16:42)
[2018-12-11] MEDS ORDERED: ALBUTEROL 2.5 MG/3 ML NEB SOL ONE (16:43)
[2018-12-11] MEDS ORDERED: IPRATROPIUM BROM 0.5MG/2.5ML ONE (16:43)
[2018-12-11 16:57] LABS: Absolute Lymphocytes (CBC) 1.4 K/uL (0.7-4.9); Basophils % 0.3 % (0-1.3); Hematocrit 35.4 % (36.0-45.0); Lymphocytes % 39.9 % (15.3-44.8); MPV 6.9 fL (7.6-11.3); RBC Red Blood Cell Count 4.11 M/uL (3.86-4.86)
[2018-12-11 17:12] LABS: Albumin 3.8 g/dL (3.4-5.0); Bilirubin Total 0.2 mg/dL (0.2-1.0); Potassium 3.7 mmol/L (3.5-5.1); Protein, Total 6.9 g/dL (6.4-8.2)
--- NOTE | 2018-12-11 17:30 | RAD REPORT ---
EXAM DESCRIPTION: RAD - Chest Single View - 12/11/2018 5:17 pm CLINICAL HISTORY: Dyspnea COMPARISON: October 2017 TECHNIQUE: AP portable chest image was obtained 1704 hours . FINDINGS: Lungs are clear. Heart and vasculature are normal. No measurable pleural effusion and no p neumothorax. No acute bony abnormality seen. No acute aortic findings suspected. IMPRESSION: No acute cardiopulmonary process. No significant interval change.
--- NOTE | 2018-12-11 18:17 | EDPHYS ---
Physician Documentation [facility] Name: Joana Nguyen Age: 33 yrs Sex: Female : 1985 Arrival Date: 12/11/2018 Time: 16:17 Bed 15 Private MD: Chantell Clemente ED Physician Matt Michelle HPI: 12/11 16:37 This 33 yrs old Female presents to ER via Ambulatory with complaints of tw4 Breathing Difficulty. 16:37 The patient has shortness of breath at rest. Onset: The symptoms/episode began/occurred tw4 today. Duration: The symptoms are continuous, and are unchanged since they started. The patient's shortness of breath has no apparent modifying factors. Associated signs and symptoms: The patient has no apparent associated signs or symptoms. Severity of symptoms: At their worst the symptoms were moderate in the emergency department the symptoms are unchanged. The patient has experienced a previous episode, last month, and the symptoms today are exactly the same. 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 - Social history:: Smoking status: Patient uses tobacco products, smokes one-half pack cigarettes per day. - Ebola Screening: : Patient denies travel to an Ebola-affected area in the 21 days before illness onset. ROS: 16:37 Constitutional: Negative for fever, chills, and weight loss, Eyes: Negative for injury, tw4 pain, redness, and discharge, Cardiovascular: Negative for chest pain, palpitations, and edema, Abdomen/GI: Negative for abdominal pain, nausea, vomiting, diarrhea, and constipation, Back: Negative for injury and pain, MS/Extremity: Negative for injury and deformity, Skin: Negative for injury, rash, and discoloration, Neuro: Negative for headache, weakness, numbness, tingling, and seizure. 16:37 Respiratory: Positive for cough, with no reported sputum, shortness of breath, wheezing. Exam: 16:37 Head/Face: Normocephalic, atraumatic. Chest/axilla: Normal chest wall appearance and tw4 motion. Nontender with no deformity. No lesions are appreciated. Cardiovascular: Regular rate and rhythm with a normal S1 and S2. No gallops, murmurs, or rubs. Normal PMI, no JVD. No pulse deficits. Abdomen/GI: Soft, non-tender, with normal bowel sounds. No distension or tympany. No guarding or rebound. No evidence of tenderness throughout. Back: No spinal tenderness. No costovertebral tenderness. Full range of motion. MS/ Extremity: Pulses equal, no cyanosis. Neurovascular intact. Full, normal range of motion. Neuro: Awake and alert, GCS 15, oriented to person, place, time, and situation. Cranial nerves II-XII grossly intact. Motor strength 5/5 in all extremities. Sensory grossly intact. Cerebellar exam normal. Normal gait. 16:37 Constitutional: The patient appears in obvious distress, mildly distressed. 16:37 Respiratory: mild respiratory distress is noted, Respirations: grunting, that is mild, shallow respirations, that is mild, Breath sounds: wheezing: inspiratory is heard in the right upper lobe, left upper lobe, left posterior upper lobe and right posterior upper lobe. Vital Signs: 16:20 BP 152 / 104; Pulse 114; Resp 19; Temp 98.6(O); Pulse Ox 100% on R/A; Weight 81.65 kg tw2 (R); Height 5 ft. 7 in. (170.18 cm); Pain 0/10; 16:50 BP 128 / 95; Pulse 89; Resp 19 S; Pulse Ox 100% on R/A; jl7 18:30 BP 121 / 85; Pulse 81; Resp 16 S; Pulse Ox 100% on R/A; jl7 16:20 Body Mass Index 28.19 (81.65 kg, 170.18 cm) tw2 MDM: 16:30 Patient medically screened. tw4 19:58 Differential diagnosis: Anemia Anxiety Reaction asthma, pneumonia, Pneumothorax tw4 Psychogenic pulmonary edema, Pulmonary Embolism reactive airway disease. Data reviewed: vital signs, nurses notes. Data interpreted: Pulse oximetry: Interpretation: normal. Counseling: I had a detailed discussion with the patient and/or guardian regarding: the historical points, exam findings, and any diagnostic results supporting the discharge/admit diagnosis. Special discussion: I discussed with the patient/guardian in detail that at this point there is no indication for admission to the hospital. It is understood, however, that if the symptoms persist or worsen the patient needs to return immediately for re-evaluation. 12/11 16:37 Order name: CBC with Diff; Complete Time: 18:17 tw4 12/11 18:17 Interpretation: Normal except: WBC 3.4; HCT 35.4; NEUT A 1.6. tw4 12/11 16:37 Order name: CMP; Complete Time: 18:17 tw4 12/11 18:17 Interpretation: Normal except: CL 108; GFR 80. tw4 12/11 16:37 Order name: D-Dimer; Complete Time: 18:17 tw4 12/11 18:17 Interpretation: Within normal limits: D-DIMER 369. tw4 12/11 16:37 Order name: CXR XRAY; Complete Time: 18:17 tw4 Administered Medications: 16:55 Drug: DuoNeb (3:1) (2.5 mg - 0.5 mg) 3 ml Route: Nebulizer; [facility] 17:30 Follow up: Response: No adverse reaction [facility] 16:56 Drug: SOLU-Medrol 125 mg Route: IVP; Site: right antecubital; [facility] 17:30 Follow up: Response: No adverse reaction [facility] Disposition: 12/11/18 18:16 Discharged to Home. Impression: Acute bronchospasm. - Condition is Stable. - Discharge Instructions: Bronchospasm, Adult, How to Use an Inhaler. - Prescriptions for Medrol (Misael) 4 mg Oral Tablets, Dose Pack - take 1 tablet by ORAL route as directed - follow package instructions; 1 packet. Albuterol Sulfate 90 mcg/actuation - inhale 1-2 puff by INHALATION route every 4-6 hours; 1 Inhaler. - Medication Reconciliation Form, Thank You Letter, Antibiotic Education, Prescription Opioid Use form. - Follow up: Chantell Clemente MD; When: Upon discharge from the Emergency Department; Reason: If symptoms return, Recheck today's complaints, Continuance of care. - Problem is new. - Symptoms have improved. Signatures: Dispatcher [employer] EDBailee Escalante RN RN tw2 Adrienne Schmitt RN RN jl7 Matt Michelle MD MD tw4 Corrections: (The following items were deleted from the chart) 18:32 18:16 12/11/2018 18:16 Discharged to Home. Impression: Acute bronchospasm. Condition is jl7 Stable. Forms are Medication Reconciliation Form, Thank You Letter, Antibiotic Education, Prescription Opioid Use. Follow up: Chantell Clemente; When: Upon discharge from the Emergency Department; Reason: If symptoms return, Recheck today's complaints, Continuance of care. Problem is new. Symptoms have improved. tw4
--- NOTE | 2018-12-11 18:17 | ER ---
Nurse's Notes [facility] Name: Joana Nguyen Age: 33 yrs Sex: Female : 1985 Arrival Date: 12/11/2018 Time: 16:17 Bed 15 Private MD: Chantell Cleemnte Diagnosis: Acute bronchospasm Presentation: 12/11 16:18 Presenting complaint: Patient states: i just wasn't feeling good this morning, my lips tw2 feel swollen, i am wheezing, i had a seizure yesterday morning and since then i feel swollen on the inside and short of breath. Presenting complaint: Patient states: "i feel like i have to just constantly clear my throat". Transition of care: patient was not received from another setting of care. Onset of symptoms was December 11, 2018. Risk Assessment: Do you want to hurt yourself or someone else? Patient reports no desire to harm self or others. Initial Sepsis Screen: Does the patient meet any 2 criteria? Yes Does the patient have a suspected source of infection? No. Patient's initial sepsis screen is negative. Care prior to arrival: None. 16:18 Method Of Arrival: Ambulatory tw2 16:18 Acuity: ERICKA 3 tw2 Triage Assessment: 16:19 General: Appears in no apparent distress. Behavior is calm, cooperative, appropriate tw2 for age. Pain: Denies pain. Respiratory: Reports shortness of breath at rest on exertion Onset: The symptoms/episode began/occurred this morning, the patient has moderate shortness of breath. 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 - Social history:: Smoking status: Patient uses tobacco products, smokes one-half pack cigarettes per day. - Ebola Screening: : Patient denies travel to an Ebola-affected area in the 21 days before illness onset. Screenin:02 Abuse screen: Denies threats or abuse. Denies injuries from another. Nutritional jl7 screening: No deficits noted. Tuberculosis screening: No symptoms or risk factors identified. Fall Risk IV access (20 points). Total Albarran Fall Scale indicates No Risk (0-24 pts). Assessment: 16:30 General: Appears in no apparent distress. uncomfortable, Behavior is cooperative, jl7 anxious, crying. Neuro: Level of Consciousness is awake, alert, obeys commands, Oriented to person, place, time, situation. Cardiovascular: Heart tones S1 S2 present Patient's skin is warm and dry. Rhythm is regular. Respiratory: Airway is patent Respiratory effort is even, unlabored, Respiratory pattern is regular, symmetrical, Breath sounds with wheezes bilaterally. EENT: Throat is clear. Derm: Skin is pink, warm \\T\\ dry. 18:00 Reassessment: Patient appears in no apparent distress at this time. Patient and/or jl7 family updated on plan of care and expected duration. Pain level reassessed. Patient is alert, oriented x 3, equal unlabored respirations, skin warm/dry/pink. Patient states feeling better. Patient states symptoms have improved. Vital Signs: 16:20 BP 152 / 104; Pulse 114; Resp 19; Temp 98.6(O); Pulse Ox 100% on R/A; Weight 81.65 kg tw2 (R); Height 5 ft. 7 in. (170.18 cm); Pain 0/10; 16:50 BP 128 / 95; Pulse 89; Resp 19 S; Pulse Ox 100% on R/A; jl7 18:30 BP 121 / 85; Pulse 81; Resp 16 S; Pulse Ox 100% on R/A; jl7 16:20 Body Mass Index 28.19 (81.65 kg, 170.18 cm) tw2 ED Course: 16:17 Patient arrived in ED. mr 16:17 Chantell Clemente MD is Private Physician. mr 16:19 Triage completed. tw2 16:19 Arm band placed on. tw2 16:22 Adrienne Schmitt RN is Primary Nurse. jl7 16:30 Matt Michelle MD is Attending Physician. tw4 17:02 Patient has correct armband on for positive identification. Placed in gown. Bed in low jl7 position. Call light in reach. Side rails up X 1. Pulse ox on. NIBP on. 17:02 Initial lab(s) drawn, by ED staff, sent to lab. Inserted saline lock: 22 gauge in right jl7 antecubital area, using aseptic technique. Blood collected. 17:18 CXR XRAY In Process Unspecified. EDMS 18:16 Chantell Clemente MD is Referral Physician. tw4 18:29 No provider procedures requiring assistance completed. IV discontinued, intact, jl7 bleeding controlled, No redness/swelling at site. Pressure dressing applied. Administered Medications: 16:55 Drug: DuoNeb (3:1) (2.5 mg - 0.5 mg) 3 ml Route: Nebulizer; jl7 17:30 Follow up: Response: No adverse reaction jl7 16:56 Drug: SOLU-Medrol 125 mg Route: IVP; Site: right antecubital; jl7 17:30 Follow up: Response: No adverse reaction jl7 Outcome: 18:16 Discharge ordered by . tw4 18:31 Discharged to home ambulatory. jl7 18:31 Condition: stable 18:31 Discharge instructions given to patient, Instructed on discharge instructions, follow up and referral plans. medication usage, Demonstrated understanding of instructions, follow-up care, medications. 18:32 Patient left the ED. jl7 Signatures: Dispatcher [employer] EDTN Geremias Sameera mr Bailee Faith, RN RN tw2 Adrienne Schmitt RN RN jl7 Matt Michelle MD MD tw4 Corrections: (The following items were deleted from the chart) 18:31 18:30 BP 121 / 85; Pulse 16bpm; Resp 16bpm; Spontaneous; Pulse Ox 100% RA; jl7 jl7
[2018-12-11 19:54] VITALS: TEMP 98.6; O2SAT 100
[2018-12-11 19:57] VITALS: BP 121/85
== END 2018-12-11 18:32 | disposition home or self-care (01) ==
LOC: ER 16:14
DX: J98.01 Acute bronchospasm (principal); I10 Essential (primary) hypertension; G40.909 Epilepsy, unspecified, not intractable, without status epilepticus; Z88.5 Allergy status to narcotic agent
CPT/HCPCS: 85025; 36415; 85379; 80053; 71045; 94640; 96374; 99284; J2930

== ENCOUNTER 2019-02-14 19:30 | Emergency (ER) | payer MEDICAID ==
--- OUTSIDE RECORDS SUMMARY | 2019-02-14 19:32 | XMS REPORT ---
:1985 [facility] [address] [place] [address] [address] [place] [address] Care Team Providers Name Role Phone Unavailable Unavailable Unavailable Problems This patient has no known problems. Allergies, Adverse Reactions, Alerts This patient has no known allergies or adverse reactions. Medications This patient has no known medications. Encounters Start End Encounter Admission Attending Care Care Encounter Date/Time Date/Time Type Type Clinicians Facility Department ID 2018-12-25 2018-12-25 Emergency E [facility] [id number] 05:20:00 05:20:00 2018-12-23 2018-12-23 Outpatient [facility] [id number] 20:37:00 20:37:00 2018-12-23 2018-12-23 Emergency E [facility] [id number] 18:47:00 18:47:00
[2019-02-14] MEDS ORDERED: NA CHLORIDE 0.9% 100 ML IV ONE (19:49)
[2019-02-14] MEDS ORDERED: LEVETIRACETAM 500 MG/5 ML VIAL IV ONE (19:49)
[2019-02-14 20:40] LABS: Barbiturates NEGATIVE (NEGATIVE); Benzodiazepines NEGATIVE (NEGATIVE); Cocaine NEGATIVE (NEGATIVE); METHAMPHETAM NEGATIVE (NEGATIVE); Methadone NEGATIVE (NEGATIVE); Opiates NEGATIVE (NEGATIVE); Phencyclidine NEGATIVE (NEGATIVE); THC Cannibis NEGATIVE (NEGATIVE)
[2019-02-14 20:47] LABS: Absolute Lymphocytes (CBC) 1.7 K/uL (0.7-4.9); Basophils % 0.2 % (0-1.3); Hematocrit 34.8 % (36.0-45.0); Lymphocytes % 27.7 % (15.3-44.8); MPV 7.3 fL (7.6-11.3); RBC Red Blood Cell Count 4.05 M/uL (3.86-4.86)
[2019-02-14 20:55] LABS: Urine Blood NEGATIVE (NEG); Urine Glucose NEGATIVE (NEG); Urine Protein NEGATIVE (NEG); Urine Specific Gravity 1.015 (1.005-1.030)
[2019-02-14 21:00] LABS: Protime INR 0.88
[2019-02-14 21:22] LABS: ALT/SGPT 23 U/L (12-78); Albumin 3.7 g/dL (3.4-5.0); Alkaline Phosphatase 69 U/L (45-117); BUN Blood Urea Nitrogen 11 mg/dL (7-18); Bicarbonate 27 mmol/L (21-32); Bilirubin Direct 0.1 mg/dL (0-0.2); Bilirubin Total 0.2 mg/dL (0.2-1.0); Glucose Level 115 mg/dL (74-106); Potassium 3.8 mmol/L (3.5-5.1); Protein, Total 7.4 g/dL (6.4-8.2); Sodium Level 141 mmol/L (136-145)
--- NOTE | 2019-02-14 21:22 | EDPHYS ---
Physician Documentation [facility] Name: Joana Nguyen Age: 33 yrs Sex: Female : 1985 Arrival Date: 02/14/2019 Time: 19:36 Bed 5 Private MD: ED Physician Matt Michelle HPI: 02/14 20:22 This 33 yrs old Female presents to ER via EMS with complaints of Probable tw4 Seizure. 20:22 The patient presents after having a single isolated seizure. Character of seizure(s): tw4 Loss of consciousness: the patient did not lose consciousness, Motor activity: generalized. Seizure onset: just prior to arrival, today. Context: the seizure(s) was witnessed, by no one. Associated injury: The patient did not suffer any apparent associated injury. The patient has not experienced similar symptoms in the past. 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 - Social history:: Smoking status: Patient uses tobacco products, denies chronic smoking, but will smoke occasionally, Patient/guardian denies using alcohol, street drugs. - Ebola Screening: : No symptoms or risks identified at this time. ROS: 20:22 Constitutional: Negative for fever, chills, and weight loss, Eyes: Negative for injury, tw4 pain, redness, and discharge, Cardiovascular: Negative for chest pain, palpitations, and edema, Respiratory: Negative for shortness of breath, cough, wheezing, and pleuritic chest pain, Abdomen/GI: Negative for abdominal pain, nausea, vomiting, diarrhea, and constipation, Back: Negative for injury and pain, MS/Extremity: Negative for injury and deformity, Skin: Negative for injury, rash, and discoloration. 20:22 Neuro: Positive for seizure activity, Negative for altered mental status, dizziness, gait disturbance, headache, hearing loss, loss of consciousness, numbness, speech changes, syncope, near syncope, tingling, tinnitus, tremor, visual changes. Exam: 20:22 Constitutional: This is a well developed, well nourished patient who is awake, alert, tw4 and in no acute distress. Head/Face: Normocephalic, atraumatic. Chest/axilla: Normal chest wall appearance and motion. Nontender with no deformity. No lesions are appreciated. Cardiovascular: Regular rate and rhythm with a normal S1 and S2. No gallops, murmurs, or rubs. Normal PMI, no JVD. No pulse deficits. Respiratory: Lungs have equal breath sounds bilaterally, clear to auscultation and percussion. No rales, rhonchi or wheezes noted. No increased work of breathing, no retractions or nasal flaring. Abdomen/GI: Soft, non-tender, with normal bowel sounds. No distension or tympany. No guarding or rebound. No evidence of tenderness throughout. MS/ Extremity: Pulses equal, no cyanosis. Neurovascular intact. Full, normal range of motion. Neuro: Awake and alert, GCS 15, oriented to person, place, time, and situation. Cranial nerves II-XII grossly intact. Motor strength 5/5 in all extremities. Sensory grossly intact. Cerebellar exam normal. Normal gait. Vital Signs: 19:38 BP 125 / 97; Pulse 84; Resp 19; Temp 98.2(O); Pulse Ox 100% on R/A; Weight 71.67 kg; lp1 Height 5 ft. 4 in. (162.56 cm); Pain 0/10; 20:30 BP 123 / 91; Pulse 82; Resp 16; Pulse Ox 99% on R/A; lp1 19:38 Body Mass Index 27.12 (71.67 kg, 162.56 cm) lp1 [place] Coma Score: 19:40 Eye Response: spontaneous(4). Verbal Response: oriented(5). Motor Response: obeys lp1 commands(6). Total: 15. MDM: 19:43 Patient medically screened. tw4 21:22 Data reviewed: vital signs, nurses notes, EMS record. Data interpreted: Pulse oximetry: tw4 Interpretation: normal. Counseling: I had a detailed discussion with the patient and/or guardian regarding: the historical points, exam findings, and any diagnostic results supporting the discharge/admit diagnosis. Refusal of service: The patient/guardian displays adequate decision making capability and despite a detailed discussion of alternatives, benefits, risks, and consequences refuses: all lab tests, Medications. 02/14 19:47 Order name: Acetaminophen [facility] 02/14 19:47 Order name: Basic Metabolic Panel [facility] 02/14 19:47 Order name: CBC with Diff [facility] 02/14 19:47 Order name: ETOH Level [facility] 02/14 19:47 Order name: Hepatic Function [facility] 02/14 19:47 Order name: PT-INR [facility] 02/14 19:47 Order name: Ptt, Activated [facility] 02/14 19:47 Order name: Salicylate [facility] 02/14 19:47 Order name: Urine Drug Screen [facility] 02/14 19:48 Order name: Acetaminophen Level [facility] 02/14 19:48 Order name: Basic Metabolic Panel [facility] 02/14 20:21 Order name: Urine Dipstick--Ancillary (enter results) [facility] 02/14 20:21 Order name: Urine --Ancillary (enter results) [facility] 02/14 19:47 Order name: Urine Test (obtain specimen); Complete Time: 20:22 [facility] 02/14 19:47 Order name: IV Saline Lock; Complete Time: 20:22 [facility] 02/14 19:47 Order name: Labs collected and sent; Complete Time: 20:42 [facility] 02/14 19:47 Order name: Urine Dipstick-Ancillary (obtain specimen); Complete Time: 20:22 tw4 Administered Medications: 20:00 Drug: Keppra 1000 mg Route: IV; Rate: calculated rate; Site: left antecubital; lp1 20:21 Follow up: IV Status: Completed infusion; IV Intake: 100ml lp1 Disposition: 02/14/19 21:21 Patient has left against medical advice. Impression: Epilepsy and recurrent seizures. - Patients states they are going to Home. - Condition is Stable. - Discharge Instructions: Seizure, Adult. Follow up: Private Physician; When: Upon discharge from the Emergency Department; Reason: Recheck today's complaints, Continuance of care. - Problem is new. - Symptoms have improved. Signatures: Dispatcher [employer] EDMS Mary Elizalde RN RN lp1 Matt Michelle MD MD tw4 Corrections: (The following items were deleted from the chart) 21:23 21:21 02/14/2019 21:21 Patients has left against medical advice. Impression: Epilepsy lp1 and recurrent seizures. Patient states they are going to Home. Condition is Stable. Follow up: Private Physician; When: Upon discharge from the Emergency Department; Reason: Recheck today's complaints, Continuance of care. Problem is new. Symptoms have improved. tw4
--- NOTE | 2019-02-14 21:22 | ER ---
Nurse's Notes [facility] Name: Joana Nguyen Age: 33 yrs Sex: Female : 1985 Arrival Date: 02/14/2019 Time: 19:36 Bed 5 Private MD: Diagnosis: Epilepsy and recurrent seizures Presentation: 02/14 19:36 Presenting complaint: EMS states: Called for patient found by in post-ictal lp1 state on couch; States hx of seizures, recently changed from Dilantin to Keppra, took first dose of Keppra this morning; Denies any pain; A/O x4 on arrival of EMS; patient complaint of nausea on arrival to ED. Transition of care: patient was not received from another setting of care. Onset of symptoms was February 14, 2019. Risk Assessment: Do you want to hurt yourself or someone else? Patient reports no desire to harm self or others. Initial Sepsis Screen: Does the patient meet any 2 criteria? No. Patient's initial sepsis screen is negative. Does the patient have a suspected source of infection? No. Patient's initial sepsis screen is negative. Care prior to arrival: IV initiated. 22 GA, in the left antecubital area, Glucose check: 114. 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 - Social history:: Smoking status: Patient uses tobacco products, denies chronic smoking, but will smoke occasionally, Patient/guardian denies using alcohol, street drugs. - Ebola Screening: : No symptoms or risks identified at this time. Screenin:40 Abuse screen: Denies threats or abuse. Denies injuries from another. Nutritional lp1 screening: No deficits noted. Tuberculosis screening: No symptoms or risk factors identified. Fall Risk None identified. Assessment: 19:39 General: Appears in no apparent distress. Behavior is appropriate for age. Pain: Denies lp1 pain. Neuro: Level of Consciousness is awake, alert, obeys commands, Oriented to person, place, time, situation, Speech is normal, Pupils are PERRLA. Cardiovascular: Patient's skin is warm and dry. Respiratory: Respiratory effort is even, unlabored, Respiratory pattern is regular, Breath sounds are clear bilaterally. GI: Abdomen is non-distended. : No signs and/or symptoms were reported regarding the genitourinary system. EENT: No signs and/or symptoms were reported regarding the EENT system. Derm: Skin is pink, warm \T\ dry. Musculoskeletal: No deficits noted. 20:47 Reassessment: Patient noted to be arguing with significant other at bedside; patient lp1 upset asking to go outside and smoke, requesting to have IV taken out; Significant other asked to leave ED at this time. 21:15 Reassessment: Patient has not returned to room at this time; Provider notified. lp1 Vital Signs: 19:38 BP 125 / 97; Pulse 84; Resp 19; Temp 98.2(O); Pulse Ox 100% on R/A; Weight 71.67 kg; lp1 Height 5 ft. 4 in. (162.56 cm); Pain 0/10; 20:30 BP 123 / 91; Pulse 82; Resp 16; Pulse Ox 99% on R/A; lp1 19:38 Body Mass Index 27.12 (71.67 kg, 162.56 cm) lp1 [place] Coma Score: 19:40 Eye Response: spontaneous(4). Verbal Response: oriented(5). Motor Response: obeys lp1 commands(6). Total: 15. ED Course: 19:36 Patient arrived in ED. lp1 19:38 Triage completed. lp1 19:38 Arm band placed on right wrist. lp1 19:40 Patient has correct armband on for positive identification. Placed in gown. Bed in low lp1 position. Call light in reach. Side rails up X2. Seizure precautions initiated. seamstress fitter on. Pulse ox on. NIBP on. 19:41 Mary Elizalde RN is Primary Nurse. lp1 19:43 Matt Michelle MD is Attending Physician. tw4 20:00 Maintain EMS IV. Dressing intact. Site clean \T\ dry. Gauge \T\ site: 22g to L AC. lp 1 20:48 IV discontinued, No redness/swelling at site. Pressure dressing applied. lp1 20:49 No provider procedures requiring assistance completed. lp1 Administered Medications: 20:00 Drug: Keppra 1000 mg Route: IV; Rate: calculated rate; Site: left antecubital; lp1 20:21 Follow up: IV Status: Completed infusion; IV Intake: 100ml lp1 Intake: 20:21 IV: 100ml; Total: 100ml. lp1 Outcome: 21:23 AMA Left before signing form. lp1 21:23 Condition: stable 21:23 Patient left the ED. lp1 Signatures: Mary Elizalde RN RN lp1 Matt Michelle MD MD tw4 Corrections: (The following items were deleted from the chart) 20:22 20:21 Keppra 1000 mg IV at calculated rate in left antecubital lp1 lp1
[2019-02-14 21:40] LABS: AST/SGOT 3 U/L (15-37)
[2019-02-14 21:55] VITALS: TEMP 98.2
[2019-02-14 21:57] VITALS: BP 123/91; O2SAT 99
== END 2019-02-14 21:23 | disposition left against medical advice (07) ==
LOC: ER 19:30
DX: G40.802 Other epilepsy, not intractable, without status epilepticus (principal); I10 Essential (primary) hypertension; Z72.0 Tobacco use; Z88.5 Allergy status to narcotic agent
CPT/HCPCS: 96365; 85025; 80048; 36415; 80320; 80329 ×2; 81025; 85610; 80076; 80307 ×8; 85730; 81003; 99284; J1953

== ENCOUNTER 2019-04-24 23:07 | Emergency (ER) | payer MEDICAID ==
--- OUTSIDE RECORDS SUMMARY | 2019-04-24 23:09 | XMS REPORT | Summary of Care ---
:1985 Author Organization [facility] - Health Address [address] [place] [address] Care Team Providers Name Role Phone Pcp, Patient Does Not Have A Primary Care Provider Encounter Details Date Type Department Care Team Description 03/19/2019 Orders Only [facility] Doctor Unassigned, No [address] [facility] [place] [address] [address] [place] [address] Allergies Active Allergy Reactions Severity Noted Date Comments Morphine Anaphylaxis 09/25/2016 documented as of this encounter (statuses as of 03/19/2019) Medications Medication Sig Dispensed Refills Start Date End Date Status cyclobenzaprine 10 mg Take 1 tablet 20 tablet 0 05/09/2017 Active tablet by mouth 3 (three) times daily. meloxicam (MOBIC) 7.5 mg Take 1 tablet 20 tablet 0 05/09/2017 Active tablet by mouth daily. documented as of this encounter (statuses as of 03/19/2019) Active Problems Problem Noted Date Family history of breast cancer 09/02/2016 Masses of both breasts 09/02/2016 Overview: Mammogram and breast usg was negative for abnormality. (see external records) documented as of this encounter (statuses as of 03/19/2019) Social History Tobacco Use Types Packs/Day Years Used Date Current Some Day Smoker Cigarettes 0.2 Started: 04/27/2016 Smokeless Tobacco: Never Used Comments: referances added Alcohol Use Drinks/Week oz/Week Comments No Sex Assigned at Date Recorded Not on file Job Start Date Occupation Industry Not on file Not on file Not on file Travel History Travel Start Travel End No recent travel history available. documented as of this encounter Last Filed Vital Signs Not on filedocumented in this encounter Plan of Treatment Health Maintenance Due Date Last Done Comments VARICELLA VACCINES (1 of 2 - 1985 2-dose childhood series) DTaP,Tdap,and Td Vaccines (1 08/11/1995 - Tdap) PAP SMEAR 09/07/2007 09/06/2004, 07/20/2004 INFLUENZA VACCINE (#1) 2018 PNEUMOCOCCAL 0-64 YEARS Aged Out No longer eligible based COMBINED SERIES on patient's age to complete this topic documented as of this encounter Procedures Procedure Name Priority Date/Time Associated Diagnosis Comments CONSENT/REFUSAL FOR Routine 03/19/2019 3:17 PM MARKETING OPERATIONS MANAGER DIAGNOSIS AND TREATMENT documented in this encounter Results Not on filedocumented in this encounter Insurance Payer Benefit Plan / Subscriber ID Effective Phone Address Type Group Dates [place] [place] [id number] xxxxxxxxx 2016-Pres [phone] Medicaid WOMEN ent [id number] [place] [address] RAYSHAWN TABARES xxxxxxxxx 2019-Pre [address] Medicaid HEALTHCARE - HEALTHCARE sent [id number] MANAGED MEDICAID [place], [place]ICAID [place] documented as of this encounter Advance Directives Name Relationship Healthcare Agent Relationship Communication Nazia Montemayor Mother Primary healthcare agent
--- OUTSIDE RECORDS SUMMARY | 2019-04-24 23:09 | XMS REPORT ---
:1985 Author Organization [facility] Address [address] [place] [address] [address] [place] [address] Care Team Providers Name Role Phone Unavailable Unavailable Unavailable Problems This patient has no known problems. Allergies, Adverse Reactions, Alerts This patient has no known allergies or adverse reactions. Medications This patient has no known medications. Encounters Start End Encounter Admission Attending Care Care Encounter Date/Time Date/Time Type Type Clinicians Facility Department ID 2018-12-25 2018-12-25 Emergency E [id number] 05:20:00 05:20:00 2018-12-23 2018-12-23 Outpatient [facility] [id number] 20:37:00 20:37:00 2018-12-23 2018-12-23 Emergency E [facility] [id number] 18:47:00 18:47:00
--- OUTSIDE RECORDS SUMMARY | 2019-04-24 23:09 | XMS REPORT ---
:1985 Author Organization [employer] Care Team Providers Name Role Phone Clemente, Na Provider Role Unavailable Allergies No Known Allergies Problems Problem Type Condition Code Onset Dates Condition Status Problem Reflux K21.9 Active Problem Seizure disorder G40.909 Active Problem Seizures R56.9 Active Problem Fibrocystic disease of right breast N60.11 Active Problem Nicotine dependence with current F17.200 Active use Problem Fibrocystic disease of left breast N60.12 Active Problem Anxiety F41.9 Active Problem HTN (hypertension) I10 Active Problem Allergic rhinitis, unspecified J30.9 Active seasonality, unspecified trigger Problem Decreased hearing of both ears H91.93 Active Assessment Allergic rhinitis, unspecified J30.9 Active seasonality, unspecified trigger Assessment Dilantin level too low R78.89 Active Assessment Medication monitoring encounter Z51.81 Active Assessment Seizure disorder G40.909 Active Assessment Nicotine dependence with current F17.200 Active use Medications Medication Code Code Instructions Start End Status Dosage System Date Date Flonase [facility] 82141479074 50 MCG/ACT Active 2 spray in Nasally Once a each day nostril Keppra [facility] 32510029203 500 MG Orally Feb 12, Active 1 tablet Twice a day 2018 EpiPen 2-Misael [facility] 47019305007 0.3 MG/0.3ML Active as directed Injection prn throat swelling / anaphylaxis Dilantin ND 36642023506 100 MG Orally Inactive 2 capsules in am, 1 cap at noon and 1 at night Nicotine Step ND 33268349808 14 MG/24HR Active 1 patch to 2 Transdermal skin Once a day Results No Known Results Summary Purpose [employer] Submission
--- OUTSIDE RECORDS SUMMARY | 2019-04-24 23:09 | XMS REPORT ---
[...] Decreased hearing of both ears H91.93 Active Medications No Known Medications Results No Known Results Summary Purpose [employer] Submission
--- OUTSIDE RECORDS SUMMARY | 2019-04-24 23:09 | XMS REPORT | Summary of Care ---
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 DUPLEX UPPER BY [address] [facility] [address] [place] [address] Reason for Visit Reason Comments Elbow Pain left Auth/Cert Status Reason Specialty Diagnoses / Referred By Referred To Procedures Contact Contact Emergency Medicine Diagnoses ELBOW PAIN [facility] [address] [facility] [place] [address] Encounter Details Date Type Department Care Team Description 03/19/2019 Emergency ADC-Emergency Ibikunle, Folusho Left arm pain ( Primary Dx); 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 meloxicam (MOBIC) 7.5 Take 1 tablet 20 tablet 0 05/09/2017 Active mg tablet by mouth daily. cephALEXin 500 mg Take 1 capsule 28 capsule 0 03/19/2019 03/26/2019 Active capsuleIndications: by mouth 4 Left arm pain, (four) times Cellulitis of elbow daily for 7 days. naproxen 500 mg Take 1 tablet 14 tablet 0 03/19/2019 03/26/2019 Active tabletIndications: Left by mouth 2 arm pain, Cellulitis of (two) times elbow daily with meals for 7 days. documented as of this encounter (statuses as [...] of this encounter Last Filed Vital Signs Vital Sign Reading Time Taken Comments Blood Pressure 116/79 03/19/2019 5:15 PM HOME STAGING SPECIALIST Pulse 90 03/19/2019 5:15 PM HOME STAGING SPECIALIST Temperature 36.4 C (97.6 F) 03/19/2019 3:38 PM HOME STAGING SPECIALIST Respiratory Rate 14 03/19/2019 5:15 PM HOME STAGING SPECIALIST Oxygen Saturation 100% 03/19/2019 5:15 PM HOME STAGING SPECIALIST Inhaled Oxygen Concentration - - Weight 68 kg (150 lb) 03/19/2019 3:38 PM HOME STAGING SPECIALIST Height 170.2 cm (5' 7") 03/19/2019 3:38 PM HOME STAGING SPECIALIST Body Mass Index 23.49 03/19/2019 3:38 PM HOME STAGING SPECIALIST documented in this encounter Discharge Instructions Aline Markham FNP - 03/19/2019 You were seen today for Chief Complaint Patient presents with Elbow Pain left Your ER diagnosis was ICD-10-CM ICD-9-CM 1. Left arm pain M79.602 729.5 2. Cellulitis of elbow L03.119 682.3 NO LIFE-THREATENING FINDINGS ON TODAY'S EXAM. YOUR PRESCRIPTIONS : Medication List START taking these medications cephALEXin 500 mg capsule Commonly known as: KEFLEX Take 1 capsule by mouth 4 (four) times daily for 7 days. naproxen 500 mg tablet Commonly known as: NAPROSYN Take 1 tablet by mouth 2 (two) times daily with meals for 7 days. ASK your doctor about these medications cyclobenzaprine 10 mg tablet Commonly known as: FLEXERIL Take 1 tablet by mouth 3 (three) times daily. meloxicam 7.5 mg tablet Commonly known as: MOBIC Take 1 tablet by mouth daily. Where to Get Your Medications You can get these medications from any pharmacy Bring a paper prescription for each of these medications cephALEXin 500 mg capsule naproxen 500 mg tablet ER precautions and follow up : 1. Return to ER if your symptoms should worsen or fail to improve within 72 hours. 2. The care provided in the emergency room was for acute problems only. 3. You should follow up with your primary care provider within 72 hours. 4. Fill and take all your medications as prescribed. 5. Make sure you are staying adequately hydrated. Busque attencion immediatamente si usted tiene los sitomas sigue, vuelve peor o si hay sitomas nuevas o para cualquiera preoccupacion incluyendo dolor del pecho , falta aire, se siente debile, mas fievre, mas dolor, nausea, vomitando, sangrando que no es normal, confusion, baja or pierdas conciencia. FOLLOW-UP RECOMMENDATIONS: RECOMMEND FOLLOW-UP WITH A PRIMARY CARE PROVIDER OR SPECIALIST IN 2-5 DAYS, ESPECIALLY IF NO IMPROVEMENT IN SYMPTOMS. MAY FOLLOW-UP WITH A PROVIDER OF YOUR CHOICE, SUCH : 1. A PHYSICIAN OF YOUR CHOICE 2. [facility], . LOCATIONS IN [facility] 3. [facility], [address] [place] [address]; OR, IF YOU WISH TO FOLLOW-UP WITHIN THE [facility], MAY TRY THESE OPTIONS (CLINIC APPOINTMENTS AVAILABLE ON OCRP-SE-PXEG BASIS): 1. SCHEDULE AN APPOINTMENT ONLINE AT WWW.[facility] 2. OR CALL THE [facility] ACCESS C[facility] AT OR 3. OR CALL YOUR [facility] PHYSICIAN'S OFFICE DIRECTLY IF YOU ARE ALREADY AN ESTABLISHED [facility] PATIENT. AttachmentsThe following attachments cannot be sent through Care Everywhere.Cellulitis, Discharge Instructions for (Cook Islander)Cephalexin tablets or capsules (Cook Islander)documented in this encounter Plan of Treatment Name Type Priority Associated Diagnoses Order Schedule POCT TEST LAB ASHLI Left arm pain ONCE for 1 Occurrences starting 03/19/2019 until 03/19/2019 Health Maintenance Due Date Last Done Comments VARICELLA VACCINES (1 of 2 - 2-dose 1985 childhood series) PNEUMOCOCCAL 0-64 YEARS COMBINED SERIES (1 1990 of 1 - PPSV23) DTaP,Tdap,and Td Vaccines (1 - Tdap) 08/11/1995 PAP SMEAR 09/07/2007 09/06/2004, 07/20/2004 INFLUENZA VACCINE (#1) 2018 documented as of this encounter Procedures Procedure Name Priority Date/Time Associated Diagnosis Comments NOTICE OF PRIVACY Routine 03/19/2019 3:17 PM HOME STAGING SPECIALIST PRACTICES documented in this encounter Results Not on filedocumented in this encounter Visit Diagnoses Diagnosis Left arm pain - Primary Pain in limb Cellulitis of elbow Cellulitis and abscess of upper arm and forearm documented in this encounter Administered Medications Medication Order MAR Action Action Date Dose Rate Site FENTanyl PF (SUBLIMAZE Given 03/19/2019 4:36 PM 50 mcg Right Deltoid-IM (PF)) injection 50 mcg HOME STAGING SPECIALIST 50 mcg, Intramuscular, ONCE, 1 dose, 03/19/19 at 1700, STAT ibuprofen (IBU) tablet 800 mg Given 03/19/2019 4:35 PM HOME STAGING SPECIALIST 800 mg 800 mg, Oral, ONCE, 1 dose, Mon03/19/19 at 1700, ASHLI documented in this encounter Insurance Payer Benefit Plan / Subscriber ID Effective Phone Address Type Group Dates RAYSHAWN TABARES xxxxxxxxx 2019-Pres [address] Medicaid HEALTHCARE - HEALTHCARE ent [id number] MANAGED MEDICAID [place], [place]ICA[place] documented as of this encounter Advance Directives Name Relationship Healthcare Agent Relationship Communication Nazia Montemayor Mother Primary healthcare agent
--- NOTE | 2019-04-25 00:13 | ER ---
Nurse's Notes [facility] Name: Joana Nguyen Age: 33 yrs Sex: Female : 1985 Arrival Date: 04/24/2019 Time: 23:14 Bed 6 Private MD: Diagnosis: Acute upper respiratory infection, unspecified;Viral syndrome Presentation: 04/24 23:17 Presenting complaint: Patient states: Pt reports fever, sore throat, body aches and ea cough for the past three days. Pt reports she had a fever for the past three days. Transition of care: patient was not received from another setting of care. Onset of symptoms was April 24, 2019. Risk Assessment: Do you want to hurt yourself or someone else? Patient reports no desire to harm self or others. Initial Sepsis Screen: Does the patient meet any 2 criteria? No. Patient's initial sepsis screen is negative. Does the patient have a suspected source of infection? No. Patient's initial sepsis screen is negative. Care prior to arrival: None. 23:17 Method Of Arrival: Ambulatory ea 23:17 Acuity: ERICKA 4 ea Triage Assessment: 23:21 General: Appears uncomfortable, Behavior is appropriate for age. Pain: Complains of ea pain in body aches. 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 - Coronavirus screen:: The patient has NOT traveled to [place] in the past 14 days. - Social history:: Smoking status: Patient denies any tobacco usage or history of. - Family history:: not pertinent. - Ebola Screening: : No symptoms or risks identified at this time. - Hospitalizations: : No recent hospitalization is reported. Screenin:19 Abuse screen: Denies threats or abuse. Nutritional screening: No deficits noted. ea Tuberculosis screening: No symptoms or risk factors identified. Fall Risk None identified. Assessment: 23:27 General: Appears in no apparent distress. uncomfortable, Behavior is calm, cooperative, jb4 appropriate for age. Pain: Complains of pain in throat Pain does not radiate. Pain currently is 5 out of 10 on a pain scale. Quality of pain is described as burning. Neuro: Level of Consciousness is awake, alert, obeys commands, Oriented to person, place, time, situation. Cardiovascular: Patient's skin is warm and dry. Respiratory: Airway is patent Respiratory effort is even, unlabored, Respiratory pattern is regular, symmetrical. GI: No signs and/or symptoms were reported involving the gastrointestinal system. : No signs and/or symptoms were reported regarding the genitourinary system. EENT: Throat is clear is reddened with gag reflex present. Derm: Skin is intact, Skin is pink, warm \T\ dry. Musculoskeletal: Circulation, motion, and sensation intact. Range of motion: intact in all extremities. 04/25 00:16 Reassessment: Patient appears in no apparent distress at this time. Patient and/or jb4 family updated on plan of care and expected duration. Pain level reassessed. Patient is alert, oriented x 3, equal unlabored respirations, skin warm/dry/pink. PT verbalized understanding of d/c and follow up instructions. Denies questions or concerns. Ambulated out of ED with steady gait and with significant other. Vital Signs: 04/24 23:18 BP 122 / 90; Pulse 102; Resp 20; Temp 98.4; Pulse Ox 100% ; Weight 72.57 kg; Height 5 ea ft. 8 in. (172.72 cm); 04/25 00:16 BP 126 / 96; Pulse 90; Resp 18; Temp 98.5(O); Pulse Ox 100% on R/A; jb4 04/24 23:18 Body Mass Index 24.33 (72.57 kg, 172.72 cm) ea ED Course: 04/24 23:14 Patient arrived in ED. ag3 23:18 Triage completed. ea 23:21 Albert Thakkar MD is Attending Physician. rn 23:21 Arm band placed on right wrist. Patient placed in an exam room, on a stretcher, on ea pulse oximetry. 23:23 Dakotah Obrien, RN is Primary Nurse. jb4 23:27 Patient has correct armband on for positive identification. Bed in low position. Call jb4 light in reach. Side rails up X 1. Pulse ox on. NIBP on. 04/25 00:06 XRAY Chest (1 view) In Process Unspecified. EDMS 00:16 No provider procedures requiring assistance completed. Patient did not have IV access jb4 during this emergency room visit. Administered Medications: No medications were administered Outcome: 00:12 Discharge ordered by . rn 00:16 Discharged to home ambulatory, with significant other. jb4 00:16 Condition: stable 00:16 Discharge instructions given to patient, Instructed on discharge instructions, follow up and referral plans. Demonstrated understanding of instructions, follow-up care. 00:19 Patient left the ED. jb4 Signatures: Dispatcher [employer] EDMS Albert Thakkar MD MD rn Bryson, James, RN RN Makenzie Waller RN Falguni Tomlinson ea
--- NOTE | 2019-04-25 00:14 | EDPHYS ---
Physician Documentation [facility] Name: Joana Nguyen Age: 33 yrs Sex: Female : 1985 Arrival Date: 04/24/2019 Time: 23:14 Bed 6 Private MD: ED Physician Albert Thakkar HPI: 04/24 23:35 This 33 yrs old Female presents to ER via Ambulatory with complaints of rn Fever, Cough. 23:35 The patient reports fever, not measured (subjective). rn 23:35 Onset: The symptoms/episode began/occurred 2 day(s) ago. Modifying factors: there are rn no obvious modifying factors. Severity of symptoms: At their worst the symptoms were mild in the emergency department the symptoms are unchanged. The patient has experienced similar episodes in the past. Reports subjective fever, sore throat, nasal congestion, cough. NO vomiting/diarrhea/abd pain. No urinary symptoms. No sick contacts. . 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 - Coronavirus screen:: The patient has NOT traveled to [place] in the past 14 days. - Social history:: Smoking status: Patient denies any tobacco usage or history of. - Family history:: not pertinent. - Ebola Screening: : No symptoms or risks identified at this time. - Hospitalizations: : No recent hospitalization is reported. ROS: 23:35 Constitutional: + fever Eyes: Negative for injury, pain, redness, and discharge, ENT: + rn nasal congestion Neck: Negative for injury, pain, and swelling, Cardiovascular: Negative for chest pain, palpitations, and edema, Respiratory: Negative for shortness of breath, wheezing, and pleuritic chest pain, Abdomen/GI: Negative for abdominal pain, nausea, vomiting, diarrhea, and constipation, MS/Extremity: Negative for injury and deformity, Skin: Negative for injury, rash, and discoloration, Neuro: Negative for numbness, tingling, and seizure. Exam: 23:35 Constitutional: This is a well developed, well nourished patient who is awake, alert, rn and in no acute distress. Ambulatory to room without difficulty or assistance. Head/Face: Normocephalic, atraumatic. Eyes: Pupils equal round and reactive to light, extra-ocular motions intact. Lids and lashes normal. Conjunctiva and sclera are non-icteric and not injected. Cornea within normal limits. Periorbital areas with no swelling, redness, or edema. ENT: MMM, mild pharyngeal erythema, no exudate Neck: Trachea midline, no masses palpated, and no cervical lymphadenopathy. Supple, full range of motion without nuchal rigidity, or vertebral point tenderness. No Meningismus. Respiratory: Speaking full sentences, no retractions Skin: Warm, dry MS/ Extremity: Pulses equal, no cyanosis. Neuro: Awake and alert, GCS 15. Normal gait. Vital Signs: 23:18 BP 122 / 90; Pulse 102; Resp 20; Temp 98.4; Pulse Ox 100% ; Weight 72.57 kg; Height 5 ea ft. 8 in. (172.72 cm); 04/25 00:16 BP 126 / 96; Pulse 90; Resp 18; Temp 98.5(O); Pulse Ox 100% on R/A; jb4 04/24 23:18 Body Mass Index 24.33 (72.57 kg, 172.72 cm) ea MDM: 04/24 23:21 Patient medically screened. rn 04/25 00:10 Differential diagnosis: viral Infection, bacterial infection, URI, bronchitis, rn pneumonia. Data reviewed: vital signs, nurses notes, lab test result(s), radiologic studies, plain films, and as a result, I will discharge patient. Test interpretation: by ED physician or midlevel provider: plain radiologic studies, CXR neg for acute infiltrate/pneumonia. Counseling: I had a detailed discussion with the patient and/or guardian regarding: the historical points, exam findings, and any diagnostic results supporting the discharge/admit diagnosis, lab results, radiology results, the need for outpatient follow up, to return to the emergency department if symptoms worsen or persist or if there are any questions or concerns that arise at home. Special discussion: I discussed with the patient/guardian in detail that at this point there is no indication for admission to the hospital. It is understood, however, that if the symptoms persist or worsen the patient needs to return immediately for re-evaluation. ED course: Strep/flu neg, CXR neg for pneumonia, will dc home as viral syndrome, no indication for ABX. Throat culture pending.. 04/24 23:17 Order name: Flu; Complete Time: 00:10 ea 04/24 23:17 Order name: Strep; Complete Time: 00:10 ea 04/24 23:35 Order name: XRAY Chest (1 view) rn 04/25 00:08 Order name: Throat Culture EDMS Administered Medications: No medications were administered Disposition: 04/25/19 00:12 Discharged to Home. Impression: Acute upper respiratory infection, unspecified, Viral syndrome. - Condition is Stable. - Discharge Instructions: Upper Respiratory Infection, Adult, Viral Respiratory Infection. - Medication Reconciliation Form, Thank You Letter, Antibiotic Education, Prescription Opioid Use form. - Work release form (04/25/19 00:32). aa1 - Follow up: Private Physician; When: As needed; Reason: Recheck today's complaints, Re-evaluation by your physician. - Problem is new. - Symptoms are unchanged. Signatures: Dispatcher [employer] EDMS Albert Thakkar MD MD rn Bryson, James, RN RN jb4 Makenzie Molina RN RN ea Autenrieth, Alissa RN aa1 Corrections: (The following items were deleted from the chart) 00:19 00:12 04/25/2019 00:12 Discharged to Home. Impression: Acute upper respiratory jb4 infection, unspecified; Viral syndrome. Condition is Stable. Forms are Medication Reconciliation Form, Thank You Letter, Antibiotic Education, Prescription Opioid Use. Follow up: Private Physician; When: As needed; Reason: Recheck today's complaints, Re-evaluation by your physician. Problem is new. Symptoms are unchanged. rn
[2019-04-25 01:28] VITALS: O2SAT 100
[2019-04-25 01:30] VITALS: BP 126/96; TEMP 98.5
--- NOTE | 2019-04-25 07:50 | RAD REPORT ---
EXAM DESCRIPTION: Melodie Single View04/25/2019 12:03 am CLINICAL HISTORY: Cough COMPARISON: 2018 FINDINGS: The lungs appear clear of acute infiltrate. The heart is normal size IMPRESSION: No acute abnormalities displayed
== END 2019-04-25 00:19 | disposition home or self-care (01) ==
LOC: ER 23:07
DX: J06.9 Acute upper respiratory infection, unspecified (principal); B34.9 Viral infection, unspecified; I10 Essential (primary) hypertension; G40.909 Epilepsy, unspecified, not intractable, without status epilepticus; Z88.5 Allergy status to narcotic agent
CPT/HCPCS: 71045; 87070; 87081; 87804; 99283

== ENCOUNTER 2019-12-30 16:02 | Emergency (ER) | payer MEDICAID, SELFPAY ==
--- OUTSIDE RECORDS SUMMARY | 2019-12-30 16:04 | XMS REPORT | Continuity of Care Document ---
:1985 Author Organization [employer] Care Team Providers Name Role Phone [employer] Unavailable Un available Problems Problem Status Onset Classification Date Comments Sourc e Date Reported Pain in right 12/27/2018 [place] knee [address] [place] [address] Center LEG PAIN Active [address] Center Pain in right 12/25/2018 [place] wrist [facility] Encounter for 12/25/2018 [place] examination and [address] [place] [address] observation Center following other accident FDC Active [address] Center MIO Active [facility] BILLING [address] [place] [address] Medications Medication Details Route Status Patient Ordering Order Source Instructions Provider Date Sulfamethoxazole 1 tab, PO, Active [facility] [place] 800 MG / BID, X 7 019 [facility] Trimethoprim 160 day, # 14 Cente r MG Oral Tablet tab, 0 [Bactrim] Refill(s) Fentanyl 50 Inactive [facility] microgram, 019 Medical Route: IVP, Center ONCE, Dosing Weight 77.273, kg, Priority: STAT, Start date: 12/25/18 10:15:00 CDT, Stop date: 12/25/18 10:15:00 CDT Ketorolac 30 mg, Inactive [facility] Route: IVP, 019 Medical Drug form: Center INJ, ONCE, Dosing Weight 77.273, kg, Priority: STAT, Start date: 12/25/18 10:15:00 CDT, Stop date: 12/25/18 10:15:00 CDT Epinephrine 0.01 Route: INJ, Inactive [facility] MG/ML / Lidocaine Dosing 019 Medica l Hydrochloride 10 Weight Center MG/ML Injectable 77.273, kg, Solution ONCE, Start date: 12/25/18 9:10:00 CDT, Stop date: 12/25/18 9:10:00 CDT Acetaminophen 325 1 tab, Inactive [facility] [place] MG / Hydrocodone Route: PO, 019 Medi nahid Bitartrate 5 MG Dosing Center Oral Tablet [[place] Weight 5/325] 77.273, kg, ONCE, STAT, Start date: 12/25/18 7:22:00 CDT, Stop date: 12/25/18 7:22:00 CDT Zofran ODT 4 mg, Inactive [facility] Route: PO, 019 Medical Drug form: Center TABDIS, ONCE, Dosing Weight 77.273, kg, Priority: STAT, Start date: 12/23/18 21:32:00 CDT, Stop date: 12/23/18 21:32:00 CDT Acetaminophen 325 Notes: Inactive [place] / Hydrocodone (Same as: 019 Medic al Bitartrate 5 MG [place] Center Oral Tablet [[place] 325/5) Do 5/325] not exceed 4gm/day of acetaminoph en. Iohexol 100 mL, Inactive [facility] Route: IVP, [facility] Medical Drug Form: [place] SOLN, Dosing Weight 77.273, kg, ONCALL, STAT, Start date: 12/23/18 19:26:00 CDT, Duration: 1 doses or times, Dose = 2.2ml/kg, Max dose = 100ml -- "To be infused by Radiology Staff ONLY" Fentanyl 25 Inactive [facility] microgram, 019 Medical Route: IVP, Center ONCE, Dosing Weight 77.273, kg, Priority: STAT, Start date: 12/23/18 19:15:00 CDT, Stop date: 12/23/18 19:15:00 CDT Saline Flush 0.9% Notes: No Longer [facility] [place] (Same as: Active [address] [place] [address] Posiflush) Allergies, Adverse Reactions, Alerts Substance Category Reaction Severity Reaction Status Date Comments S ource type Reported morphine Assertion Drug Active [place] allergy [facility] Food Eggs Assertion Food Active [place] allergy [facility] Immunizations No Data Provided for This Section Results Order Name Results Value Reference Date Interpretation Comments Nae rce Range BODY FLUIDS CellCnt BF Synovial 12/25 [place] Type (12/25/18 10:21 AM) /2018 [facility] BODY FLUIDS Color BF Red Colorless 12/25 [facility] [place] *ABN* Medical (12/25/18 10:21 AM) Cent er BODY FLUIDS Clarity BF Bloody Clear 12/25 [place] *ABN* Medical (12/25/18 10:21 AM) Cent er BODY FLUIDS Supernat BF Red Colorless 12/25 [place] *ABN* Medical (12/25/18 10:21 AM) Cent er BODY FLUIDS Neutrophils 35 12/25 [facility] BODY FLUIDS Lymph BF 12 12/25 [facility] BODY FLUIDS Macrophage 53 12/25 [facility] BF [facility] BODY FLUIDS Nucleated 209 12/25 [facility] Cells BF [facility] [place] [address] 12/25 [facility] ELECTROLYTES AGAP 13.1 10.0 - 12/25 [facility] 20.0 [facility] ELECTROLYTES Glucose Lvl 93 70 - 99 12[facility] ELECTROLYTES BUN 8 7 - 22 12/25 [facility] ELECTROLYTES Creatinine 0.80 0.50 - 12/25 [facility] Lvl 1.40 [facility] ELECTROLYTES Sodium Lvl 140 135 - 145 12/25 [place] [facility] ELECTROLYTES Potassium 4.1 3.5 - 5.1 12/25 [facility] L[facility] ELECTROLYTES Chloride Lvl 108 95 - 109 12/25 [place] [facility] ELECTROLYTES CO2 23 24 - 32 12/25 [facility] ELECTROLYTES Calcium Lvl 8.5 8.5 - 10.5 12/25 [place] [facility] ELECTROLYTES eGFR 96 12/[address] [facility] Comment: The Medical eGFR is Center calculated using the CKD-EPI formula. In most young, healthy individuals the eGFR will be >90 mL/min/1.73m2 . The eGFR declines with age. An eGFR of 60-89 may be normal in some populations, particularly the elderly, for whom the CKD-EPI formula has not been extensively validated. Use of the eGFR is not recommended in the following populations:< br/>
Jenna viduals with unstable creatinine concentration s, including patients and those with serious co-morbid conditions.<b r/>
Patie nts with extremes in muscle mass or diet.

The data above are obtained from the National Kidney Disease Education Program (NKDEP) which additionally recommends that when the eGFR is used in patients with extremes of body mass index for purposes of drug dosing, the eGFR should be multiplied by the estimated BMI. HEMATOLOGY WBC 7.8 3.7 - 10.4 12/25 [facility] HEMATOLOGY RBC 4.26 4.20 - 12/25 [place] 5.40 /2018 [facility] HEMATOLOGY Hgb 12.3 12.0 - 12/25 [place] 16.0 [facility] HEMATOLOGY Hct 36.6 36.0 - 12/25 [place] 48.0 [facility] HEMATOLOGY MCV 86.0 80.0 - 12/25 [place] 98.0 [facility] HEMATOLOGY MCH 28.8 27.0 - 12/25 [place] 31.0 [facility] HEMATOLOGY MCHC 33.5 32.0 - 12/25 [place] 36.0 [facility] HEMATOLOGY RDW 14.2 11.5 - 12/25 [place] 14.5 [facility] HEMATOLOGY Platelet 376 133 - 450 12/25 [facility] HEMATOLOGY MPV 7.8 7.4 - 10.4 12/25 [facility] HEMATOLOGY Sed Rate 5 0 - 20 12/25 [facility] HEMATOLOGY Segs 60.2 45.0 - 12/25 [place] 75.0 [facility] HEMATOLOGY Lymphocytes 28.9 20.0 - 12/25 [place] 40.0 [facility] HEMATOLOGY Monocytes 8.3 2.0 - 12.0 12/25 [facility] HEMATOLOGY Eosinophils 2.4 0.0 - 4.0 12/[place] [facility] HEMATOLOGY Basophils 0.2 0.0 - 1.0 12/25 [facility] HEMATOLOGY Neutrophils 4.7 1.5 - 8.1 12/25 [place] # [facility] HEMATOLOGY Lymphocytes 2.3 1.0 - 5.5 12/25 [place] # [facility] HEMATOLOGY Monocytes # 0.6 0.0 - 0.8 12/25 [place] [facility] HEMATOLOGY Eosinophils 0.2 0.0 - 0.5 12/25 [place] # /2018 [facility] IMMUNOLOGY C-REACTIVE 16.1 <=2.9 mg/L 12/25 [place] PROTEIN [facility] HEMATOLOGY WBC 6.9 3.7 - 10.4 12/24 Medical [place] HEMATOLOGY RBC 3.78 4.20 - 12/24 [place] 5.40 Medical Center HEMATOLOGY Hgb 11.1 12.0 - 12/24 16.0 Medical Center HEMATOLOGY Hct 32.6 36.0 - 12/24 48.0 Medical Center HEMATOLOGY MCV 86.1 80.0 - 12/24 98.0 Medical [place] HEMATOLOGY MCH 29.3 27.0 - 12/24 31.0 Medical Center HEMATOLOGY MCHC 34.0 32.0 - 12/24 36.0 [facility] HEMATOLOGY RDW 13.9 11.5 - 12/24 14. [facility] HEMATOLOGY Platelet 315 133 - 450 12/24 [facility] HEMATOLOGY MPV 6.9 7.4 - 10.4 12/24 [facility] HEMATOLOGY ACT (TEG) 97 86 - 118 12/24 [facility] HEMATOLOGY [place] 0.4 12/24 [facility] HEMATOLOGY R-time Rapid 0.5 0.4 - 0.7 12/24 [place] [facility] HEMATOLOGY K-time Rapid 1.2 0.6 - 2.3 12/24 [place] [facility] HEMATOLOGY Angle Rapid 75 64 - 80 12/24 [facility] HEMATOLOGY Max 64 52 - 71 12/24 [facility] HEMATOLOGY G-value 8.7 5.0 - 11.6 12/24 [facility] HEMATOLOGY Estimated % 0.6 0.0 - 7.5 12/24 [place] [facility] HEMATOLOGY Segs 72.4 45.0 - 12/24 [place] 75.0 [facility] HEMATOLOGY Lymphocytes 17.7 20.0 - 12/24 [place] 40.0 [facility] HEMATOLOGY Monocytes 7.9 2.0 - 12.0 12/24 [facility] HEMATOLOGY Eosinophils 1.7 0.0 - 4.0 12/24 [place] [facility] HEMATOLOGY Basophils 0.3 0.0 - 1.0 12/24 [facility] HEMATOLOGY Neutrophils 5.0 1.5 - 8.1 12/24 [place] [facility] HEMATOLOGY Lymphocytes 1.2 1.0 - 5.5 12/24 [place] # [facility] Center HEMATOLOGY Monocytes # 0.6 0.0 - 0.8 12/24 [facility] HEMATOLOGY Eosinophils 0.1 0.0 - 0.5 12/24 [place] # [facility] IMMUNOLOGY CDC HIV 4th Negative Negative 12/24 [facility] GEN *NA* /2018 Medical (12/23/18 7:54 PM) Cente r BLOOD BANK ABO/Rh O NEG 12/24 [facility] RESULTS [facility] BLOOD BANK Antibody Negative 12/24 [facility] RESULTS Scrn (12/23/18 7:17 PM) [facility] CHEM PANEL Lactic Acid 0.6 0.5 - 2.2 12/24 [facility] Lvl [facility] ELECTROLYTES AGAP 15.3 10.0 - 12/24 [place] 20.0 [facility] ELECTROLYTES Glucose Lvl 96 70 - 99 12/24 [facility] ELECTROLYTES BUN 8 7 - 22 12/24 [facility] ELECTROLYTES Creatinine 0.92 0.50 - 12/24 [facility] Lvl 1.40 [facility] ELECTROLYTES Sodium Lvl 137 135 - 145 12/24 [place] [facility] ELECTROLYTES Potassium 3.3 3.5 - 5.1 12/24 [facility] Lvl [facility] ELECTROLYTES Chloride Lvl 103 95 - 109 12/24 [place] [facility] ELECTROLYTES CO2 22 24 - 32 12/24 [facility] ELECTROLYTES Calcium Lvl 8.8 8.5 - 10.5 12/24 [place] [facility] ELECTROLYTES eGFR 45 12/24 Result Comment: The Medical eGFR is Center calculated using the CKD-EPI formula. In most young, healthy individuals the eGFR will be >90 mL/min/1.73m2 . The eGFR declines with age. An eGFR of 60-89 may be normal in some populations, particularly the elderly, for whom the CKD-EPI formula has not been extensively validated. Use of the eGFR is not recommended in the following populations:< br/>
Jenna viduals with unstable creatinine concentration s, including patients and those with serious co-morbid conditions.<b r/>
Patie nts with extremes in muscle mass or diet.

The data above are obtained from the National Kidney Disease Education Program (NKDEP) which additionally recommends that when the eGFR is used in patients with extremes of body mass index for purposes of drug dosing, the eGFR should be multiplied by the estimated BMI. ENDOCRINOLOGY S Preg Negative Negative 12/24 [facility] *NA* /2018 Medical (12/23/18 7:17 PM) Cente r TOXICOLOGY Ethanol Lvl <3 12/24 [facility] TOXICOLOGY Etoh (%) <0.003 12/24 [facility] Pathology Reports No Data Provided for This Section Diagnostic Reports Report Value Date Source Knee wo contrast CT EXAM: CT RIGHT KNEE WITHOUT CONTRAST 019 [facility] DATE: 12/25/2018 0556 hours Cent er INDICATION: - s/p jail, neg XR, increasing joint line pain with inability to bear weight COMPARISON: Same day right knee radiographs at 0 551 hours. TECHNIQUE: Volumetric CT of the knee is acquired without contrast. Axial, coronal and sagittal images are provided. IV contrast: None. DLP: 119 mGy-cm [place] SECTION: ER FINDINGS: Distal femur: Intact. Bone island noted in the m edial femoral condyle. Patella: Intact. Small enthe sophyte formation at the distal quadriceps tendon attachment site. Proximal tibia: Intact. Proximal fibula: Intact. Soft tissues: Mild soft tiss ue swelling at the infrapatellar knee. No subcutaneous emphysema or radiodense foreign bodies. Small joint effusion. IMPRESSION: 1. No acute fracture or malalignment. 2. Mild anterior knee soft tissue swelling. 3. Small joint effusion Knee series 3 views EXAM: XR RIGHT KNEE 3 VIEWS 12/25/2018 [facility] DX DATE: 12/25/2018 0551 hours Cent er INDICATION: - jail pain COMPARISON: Right knee radiographs on 12/23/2018 . TECHNIQUE: 3 views of the knee UT SECTION: ER FINDINGS: No acute fracture or malalig nment is identified. Minimal superior patellar spur is noted at the distal quadriceps tendon attachment site. Small suprapatellar knee armando nt effusion is present. Mild soft tissue swelling about the knee is identified. IMPRESSION: Small knee joint effusion an d mild soft tissue swelling about the knee without underlying acute bony fracture or malalignment. Ankle 3 views DX EXAM: XR ANKLE 3 VIEWS 12/23/2018 [facility] DATE: 12/23/2018 19:54 CDT Cente r INDICATION: - pain s/p trauma COMPARISON: None TECHNIQUE: AP, oblique and lateral radiographs of the ankle Laterality: Right FINDINGS: No acute fracture or malalignment is identified. The ankle mortise is congruent. No soft tissue abnormality is identified. IMPRESSION: No acute abnormality. Knee 3 views DX EXAM: XR KNEE 3 VIEWS 12/23/2018 [facility] edical DATE: 12/23/2018 19:54 CDT Cente r INDICATION: - pain s/p trauma COMPARISON: None TECHNIQUE: 3 views of the knee Laterality: Right FINDINGS: No acute fracture or malalignment is identified. There is no excessive joint fluid. No soft tissu e abnormality is identified. IMPRESSION: No acute abnormality. Foot series DX EXAM: XR FOOT 3 VIEWS 12/23/2018 [facility] edical DATE: 12/23/2018 19:54 CDT Cente r INDICATION: - pain s/p trauma COMPARISON: None TECHNIQUE: AP, lateral and oblique radiographs o f the foot Laterality: Right FINDINGS: No acute fracture or malalignment is identified. No soft tissue abnormality is identified. IMPRESSION: No acute abnormality. Hand 3 views DX EXAM: RIGHT HAND 3 VIEWS 12/23/2018 [facility] EXAM: RIGHT WRIST 3 VIEWS Center DATE: 12/23/2018 19:54 CDT INDICATION: - pain s/p trauma COMPARISON: None TECHNIQUE: PA, lateral and oblique radiographs of the right hand and wrist. FINDINGS: Linear lucency th rough the volar aspect of the proximal fifth metacarpal shaft. No other bony abnormality identified. No joint space narrowing, osteophytes or cysts. Mild hypothenar soft tissue swelling. IMPRESSION: Linear lucency through the v olar aspect of the proximal fifth metacarpal shaft, favored to represent a nutrient channel, however, recommend correlation for focal tenderness to exclude fracture. Wrist complete DX EXAM: RIGHT HAND 3 VIEWS 12/23/2018 [facility] EXAM: RIGHT WRIST 3 VIEWS Center DATE: 12/23/2018 19:54 CDT INDICATION: - pain s/p trauma COMPARISON: None TECHNIQUE: PA, lateral and oblique radiographs of the right hand and wrist. FINDINGS: Linear lucency th rough the volar aspect of the proximal fifth metacarpal shaft. No other bony abnormality identified. No joint space narrowing, osteophytes or cysts. Mild hypothenar soft tissue swelling. IMPRESSION: Linear lucency through the v olar aspect of the proximal fifth metacarpal shaft, favored to represent a nutrient channel, however, recommend correlation for focal tenderness to exclude fracture. Elbow 3 views DX EXAM: XR ELBOW 3 VIEWS 12/23/2018 [facility] DATE: 12/23/2018 19:54 CDT Cente r INDICATION: - pain s/p trauma COMPARISON: None TECHNIQUE: AP, lateral and oblique radiographs of the elbow Laterality: Right FINDINGS: No acute fracture or malalignment is identified. There is no excessive joint fluid. No soft tissu e abnormality is identified. IMPRESSION: No acute abnormality. Tibia fibula series EXAM: XR TIBIA 2 VIEWS 12/23/2018 [facility] DX DATE: 12/23/2018 19:54 CDT Cente r INDICATION: - pain s/p trauma COMPARISON: None TECHNIQUE: AP and lateral radiographs of the t ibia Laterality: Right FINDINGS: No acute fracture or malalignment is identified. No soft tissue abnormality is identified. IMPRESSION: No acute abnormality. Humerus 2 views DX EXAM: XR HUMERUS 2 VIEWS 12/23/2018 [facility] DATE: 12/23/2018 19:54 CDT Cente r INDICATION: - s/p trauma COMPARISON: None TECHNIQUE: AP and lateral radiographs of the h umerus Laterality: Right FINDINGS: No acute fracture or malalignment is identified. No soft tissue abnormality is identified. IMPRESSION: No acute abnormality. Shoulder series DX EXAM: XR SHOULDER 3 VIEWS 12/23/2018 [facility] DATE: 12/23/2018 19:54 CDT Cente r INDICATION: - R shoulder pain s/p trauma COMPARISON: None TECHNIQUE: 3 views of the shoulder Laterality: Right FINDINGS: No acute fracture or malalignment is identified. No soft tissue abnormality is identified. IMPRESSION: No acute abnormality. Forearm 2 views DX EXAM: XR FOREARM 2 VIEWS 12/23/2018 [facility] DATE: 12/23/2018 19:54 CDT Cente r INDICATION: - pain s/p trauma COMPARISON: None TECHNIQUE: AP and lateral radiographs of the f orearm Laterality: Right FINDINGS: No acute fracture or malalignment is identified. No soft tissue abnormality is identified. IMPRESSION: No acute abnormality. Femur series DX EXAM: XR FEMUR 2 VIEWS 12/23/2018 [facility] DATE: 12/23/2018 19:54 CDT Cente r INDICATION: - pain s/p trauma COMPARISON: None TECHNIQUE: AP and lateral radiographs of the fe mur Laterality: Right FINDINGS: No acute fracture or malalignment is identified. No soft tissue abnormality is identified. IMPRESSION: No acute abnormality. Hip 2/3 views uni w EXAM: RIGHT HIP 2 VIEWS 12/23/2018 [facility] DATE: 12/23/2018 19:54 CDT Cente r INDICATION: - pain s/p trauma COMPARISON: None TECHNIQUE: AP and frog-leg lateral views of the right hip. FINDINGS: No acute fracture or malalignment is identified. Hip joint spaces are preserved bilaterally. Contrast in the urinary bladder. No soft tissue abnormality is identified. IMPRESSION: No acute abnormality. Chest/Abdomen/Pelvis EXAM: CT CHEST WITH CONTRAST 12/23/2018 [facility] IV contrast CT EXAM: CT ABDOMEN AND PELVIS WITH CONTRAST Center DATE: 12/23/2018 19:12 CDT INDICATION: - acute pain due to trauma COMPARISON: None TECHNIQUE: Volumetric CT of the chest, abdomen and pelvis is acquired following intravenous administration of contrast. Axial, coronal and sagittal images are provided. IV contrast: 100 mL Omnipaque 350 Oral contrast: None. DLP: 2207 mGy-cm [place] SECTION: ER FINDINGS: Lines and tubes: None. Lower Neck: Supraclavicular soft tissues are unr emarkable. Thoracic Aorta and Mediastin um: No mediastinal hematoma or thoracic aortic injury. Normal heart and pericardium. Lungs, Pleura, Diaphragm: No pulmonary contusions. The lungs are clear. No pleural effusion or pneumothorax. No diaphragmatic injury. Liver and biliary tree: Normal. No injury. No bi liary abnormality. Gallbladder: Surgically absent. Pancreas: Normal. No injury. Spleen: Normal. No injury. Adrenals: Normal. No injury. Kidneys and ureters: Normal. No injury. Bladder: Normal. No injury. Reproductive organs: No injury. Gastrointestinal tract: Normal. No bowel injury. Peritoneum and retroperitoneum: No fluid collect ions or free air. Lymph nodes: Normal. Vasculature: No vascular injury. Spine/ Bones: No acute abnormality of the spine. No other bony injury. Soft tissues: Normal. IMPRESSION: No acute traumatic abnormality in the chest, abd omen, or pelvis Brain wo contrast CT EXAM: CT BRAIN WITHOUT CONTRAST 12/23/2018 [facility] INDICATION: - acute pain due to trauma Center COMPARISON: None TECHNIQUE: Routine axial CT images of the brain were obtained. DISCUSSION: No intracranial hemorrhage o r mass effect. No acute infarction. No hydrocephalus. Calvarium is intact. Paranasal sinuses are clear . IMPRESSION: No acute intracranial abnormality. Spine cervical wo EXAM: CT CERVICAL SPINE WITHOUT CONTRAST 12/23 [facility] contrast CT (ER) DATE: 12/23/2018 19:11 CDT Cent er INDICATION: - acute pain due to trauma COMPARISON: None TECHNIQUE: Volumetric CT of the cervical spine is acquired without contrast. Axial, coronal and sagittal images are provided. IV contrast: None. DLP: 527.2 mGy-cm [place] SECTION: ER FINDINGS: The spine is imaged from the skull bas e to the level of T3. No acute fracture or malalig nment is identified. No soft tissue abnormality is identified. IMPRESSION: No acute fracture or malalignment i n the cervical spine. Pelvis AP DX EXAM: XR PELVIS 1 VIEW 12/23/2018 [facility] EXAM: XR PELVIS 1 VIEW Center DATE: 12/23/2018 19:10 CDT INDICATION: - acute pain due to trauma COMPARISON: None. [place] SECTION: ER TECHNIQUE: 2 Frontal pelvis images FINDINGS: Examination of the pelvis is somewhat limited secondary to patient rotation and overlying medical devices and trauma backboard artifact. Given this limitation, no acute fracture or mirian lignment identified. IMPRESSION: No acute fracture or malalignment. Pelvis AP DX EXAM: XR PELVIS 1 VIEW 12/23/2018 [facility] EXAM: XR PELVIS 1 VIEW Center DATE: 12/23/2018 19:10 CDT INDICATION: - acute pain due to trauma COMPARISON: None. [place] SECTION: ER TECHNIQUE: 2 Frontal pelvis images FINDINGS: Examination of the pelvis is somewhat limited secondary to patient rotation and overlying medical devices and trauma backboard artifact. Given this limitation, no acute fracture or mirian lignment identified. IMPRESSION: No acute fracture or malalignment. Chest 1view DX EXAM: XR CHEST 1 VIEW 12/23/2018 [facility] edical DATE: 12/23/2018 19:10 CDT Cente r INDICATION: - acute pain due to trauma COMPARISON: None. [place] SECTION: ER TECHNIQUE: AP chest. FINDINGS: Examination is vickie ewhat limited secondary to partial collimation of some of the chest as well as overlying trauma backboard, medical devices, and jewelry. Lines, tubes and hardware: None. Lungs and pleura: The lungs are clear. The costophrenic sulci are sharp without effusion. Heart and mediastinum: The h eart size is normal for technique. The mediastinal contours are normal. Bones, soft tissues: No acute abnormality. IMPRESSION: 1. No acute cardiopulmonary abnormality. Consultation Notes No Data Provided for This Section Discharge Summaries No Data Provided for This Section History and Physicals No Data Provided for This Section Vital Signs Vital Sign Value Date Comments Source Respitory Rate 15 12/25/2018 [facility] Systolic (mm Hg) 120 12/25/2018 [facility] dical Center Diastolic (mm Hg) 74 12/25/2018 [facility] Systolic (mm Hg) 109 12/25/2018 [facility] dical Center Diastolic (mm Hg) 77 12/25/2018 [facility] Respitory Rate 14 12/25/2018 [facility] Systolic (mm Hg) 106 12/25/2018 [facility] dical Center Diastolic (mm Hg) 71 12/25/2018 [facility] Respitory Rate 15 12/25/2018 [facility] Heart Rate 75 12/25/2018 [facility] Temperature Oral (F) 97.9 F 12/25/2018 [facility] Heart Rate 92 12/25/2018 [facility] Temperature Oral (F) 97.5 F 12/25/2018 [facility] Temperature Oral (F) 98.2 F 12/24/2018 [facility] Respitory Rate 17 12/24/2018 [facility] Systolic (mm Hg) 141 12/24/2018 [facility] dical Center Diastolic (mm Hg) 72 12/24/2018 [facility] Respitory Rate 19 12/24/2018 [facility] Systolic (mm Hg) 153 12/24/2018 [facility] dical Center Diastolic (mm Hg) 95 12/24/2018 [facility] Respitory Rate 19 12/24/2018 [facility] Systolic (mm Hg) 156 12/24/2018 [facility] dical Center Diastolic (mm Hg) 93 12/24/2018 [facility] Heart Rate 89 12/24/2018 [facility] Temperature Oral (F) 98.1 F 12/24/2018 [facility] Weight 77.273 12/24/2018 [facility] Encounters Location Location Encounter Encounter Reason Attending ADM DC Stat us Source Details Type Number For Provider Date Date Visit [facility] [id number] Michele 12/23 12/24 [facility] Tressa /2018 [facility] [id number] Summer 12/25 12/25 [facility] Enrike [facility] Procedures No Data Provided for This Section Assessment and Plan No Data Provided for This Section Plan of Care No Data Provided for This Section Social History Social History Date Source Social History TypeResponse 12/25/2018 [facility] Smoking Status Never smoker; Type: Cigarettes; Exposure to Tobacco Smoke None; Cigarette Smoking Last 365 Days No; Reg Smoking Cessation Counseling No entered on: 12/25/18 Family History No Data Provided for This Section Advance Directives No Data Provided for This Section Functional Status No Data Provided for This Section
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
--- NOTE | 2019-12-30 17:38 | RAD REPORT ---
EXAM DESCRIPTION: CT - Head Brain Wo Cont - 12/30/2019 5:27 pm CLINICAL HISTORY: Headache;Weakness COMPARISON: HEAD BRAIN W O CONTRAST dated 03/13/2012 TECHNIQUE: Axial 5 mm thick images of the head were obtained without IV contrast. All CT scans are performed using dose optimization technique as appropriate and may include automated exposure control or mA/KV adjustment according to patient size. FINDINGS: No intracranial hemorrhage, mass, edema or shift of mid-line structures. No acute infarcti on changes seen. No abnormal extra-axial fluid collections. Ventricles are normal. Mastoid air cells and visualized portions of the paranasal sinuses are clear. No acute bony findings. No suspicious change from comparison. IMPRESSION: Negative non-contrast CT head examination.
[2019-12-30 17:39] LABS: Absolute Lymphocytes (CBC) 1.9 K/uL (0.7-4.9); Hematocrit 36.6 % (36.0-45.0); Lymphocytes % 34.3 % (15.3-44.8); MPV 7.3 fL (7.6-11.3); RBC Red Blood Cell Count 4.35 M/uL (3.86-4.86)
[2019-12-30 17:40] LABS: Protime INR 0.98
[2019-12-30 17:58] LABS: ALT/SGPT 19 U/L (12-78); AST/SGOT 13 U/L (15-37); Albumin 3.5 g/dL (3.4-5.0); Alkaline Phosphatase 66 U/L (45-117); BUN Blood Urea Nitrogen 10 mg/dL (7-18); Bicarbonate 28 mmol/L (21-32); Bilirubin Direct < 0.1 mg/dL (0-0.2); Bilirubin Total 0.3 mg/dL (0.2-1.0); Glucose Level 76 mg/dL (74-106); Magnesium 1.7 mg/dL (1.8-2.4); Potassium 3.6 mmol/L (3.5-5.1); Protein, Total 6.7 g/dL (6.4-8.2); Sodium Level 142 mmol/L (136-145)
[2019-12-30] MEDS ORDERED: METOCLOPRAMIDE 10 MG/2mL INJ ONE (18:30)
[2019-12-30] MEDS ORDERED: DIPHENHYDRAMINE 50 MG/ML VIAL ONE (18:30)
--- NOTE | 2019-12-30 19:01 | ER ---
Nurse's Notes [facility] Name: Joana Nguyen Age: 34 yrs Sex: Female : 1985 Arrival Date: 12/30/2019 Time: 16:07 Bed 17 Private MD: Diagnosis: Migraine without aura, intractable Presentation: 12/29 16:16 Chief complaint: Patient states: occipital headache and neck pain x 4 days. Denies sv injury or fall recently. Coronavirus screen: Client denies travel out of the [place] in the last 14 days. At this time, the client does not indicate any symptoms associated with coronavirus-19. Ebola Screen: No symptoms or risks identified at this time. Risk Assessment: Do you want to hurt yourself or someone else? Patient reports no desire to harm self or others. Onset of symptoms was December 26, 2019. 16:16 Method Of Arrival: Ambulatory sv 16:16 Acuity: ERICKA 3 sv 16:17 Initial Sepsis Screen: Does the patient meet any 2 criteria? No. Patient's initial sv sepsis screen is negative. Does the patient have a suspected source of infection? No. Patient's initial sepsis screen is negative. Triage Assessment: 17:35 Headache History: The patient has had previous headaches. General: Appears ll1 uncomfortable, Behavior is calm, cooperative, appropriate for age. Pain: Pain Pain began 2-3 days ago. Also complains of no other associated symptoms. 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 - Social history:: Smoking status: Patient reports the use of cigarette tobacco products, denies chronic smoking, but will smoke occasionally. Screenin:35 Abuse screen: Denies threats or abuse. Nutritional screening: No deficits noted. ll1 Tuberculosis screening: No symptoms or risk factors identified. Fall Risk IV access (20 points). Gait- Weak (10 pts.). Total Albarran Fall Scale indicates Low Risk Score (25-44 pts). Fall prevention measures have been instituted. Side Rails Up X 2 Placed close to Nursing Station Frequent Obs/Assesments occuring As available Patient and Family Educated on Fall Prevention Program and strategies. Assessment: 17:32 General: Appears uncomfortable, Behavior is calm, cooperative, appropriate for age. ll1 Pain: Complains of pain in head Quality of pain is described as aching, Is continuous. Neuro: Level of Consciousness is awake, alert, obeys commands, Oriented to person, place, time, situation, Appropriate for age Loan Closer are equal bilaterally Moves all extremities. Full function Gait is steady, Speech is normal, Facial symmetry appears normal, Pupils are PERRLA, Reports headache occipital area. Cardiovascular: No deficits noted. Respiratory: No deficits noted. Musculoskeletal: Circulation, motion, and sensation intact. Capillary refill < 3 seconds, Range of motion: intact in all extremities, Reports pain in neck. 18:30 Reassessment: Patient and/or family updated on plan of care and expected duration. Pain ll1 level reassessed. Patient is alert, oriented x 3, equal unlabored respirations, skin warm/dry/pink. 19:30 Reassessment: Patient and/or family updated on plan of care and expected duration. Pain ll1 level reassessed. Patient is alert, oriented x 3, equal unlabored respirations, skin warm/dry/pink. Patient states feeling better. Vital Signs: 16:17 BP 122 / 91; Pulse 68; Resp 20; Temp 97.7; Pulse Ox 100% ; Weight 72.57 kg; Height 5 sv ft. 7 in. (170.18 cm); 19:10 BP 109 / 79; Pulse 79; Resp 17; Pulse Ox 100% ; Pain 7/10; ll1 19:56 Pain 3/10; ll1 16:17 Body Mass Index 25.06 (72.57 kg, 170.18 cm) sv ED Course: 16:07 Patient arrived in ED. mr 16:16 Arm band placed on. sv 16:17 Triage completed. sv 16:52 Radha Raygoza, IAN is Primary Nurse. ll1 16:52 Patient placed in an exam room, on a stretcher. ll1 16:53 Shahzad Gould PA is PHCP. jr8 16:53 Shaheen White MD is Attending Physician. jr8 17:10 Bed in low position. Call light in reach. Side rails up X 1. Warm blanket given. Verbal jp3 reassurance given. Pulse ox on. NIBP on. 17:17 Initial lab(s) drawn, by me, sent to lab. Inserted saline lock: 20 gauge in right jp3 antecubital area, using aseptic technique. Blood collected. 17:17 Patient maintains SpO2 saturation greater than 95% on room air. jp3 17:20 Pt swabbed for COVID-19. jp3 17:20 COVID-19 Sent. jp3 17:29 CT Head Brain wo Cont In Process Unspecified. EDMS 17:48 EKG done, by ED staff, reviewed by Shahzad AMANDA. 3 19:56 No provider procedures requiring assistance completed. IV discontinued, intact, ll1 bleeding controlled, No redness/swelling at site. Pressure dressing applied. Administered Medications: 18:27 Drug: Benadryl 25 mg Route: IVP; Site: right antecubital; ll1 19:55 Follow up: Response: No adverse reaction; RASS: Alert and Calm (0) 1 18:27 Drug: Reglan 10 mg Route: IVP; Site: right antecubital; ll1 19:55 Follow up: Response: No adverse reaction; RASS: Alert and Calm (0) 1 19:27 Drug: Decadron - Dexamethasone 10 mg Route: IVP; Site: right antecubital; ll1 19:55 Follow up: Response: No adverse reaction; RASS: Alert and Calm (0) 1 19:27 Drug: TORadol 30 mg Route: IVP; Site: right antecubital; ll1 19:54 Follow up: Response: No adverse reaction; Pain is decreased; RASS: Alert and Calm (0) 1 Outcome: 19:00 Discharge ordered by . jrValeria 19:56 Discharged to home ambulatory. 1 19:56 Condition: stable 19:56 Discharge instructions given to patient, Instructed on discharge instructions, follow up and referral plans. no drinking with medication, medication usage, Demonstrated understanding of instructions, follow-up care, medications, Prescriptions given X 1. 19:57 Patient left the ED. ll1 Addendum: 01/01/2020 17:15 Addendum: COVID-19 Result: Negative result given to RN to notify pt. Attempted to s s contact pt regarding negative COVID-19 swab results. Unable to leave voice mail due to the number provided was either not a working number, the voice mail has not been set up, or the voice mailbox is full.. Signatures: Dispatcher [employer] Shanna Abbasi, RN IAN pimentel Sameera Archuleta mr CaronAngélica childers, RN RN Shahzad Mcdermott PA PA jr8 Ita Sheehan 3 Jimmie Hackett jp3 Radha Raygoza RN RN ll1 Corrections: (The following items were deleted from the chart) 12/29 16:19 16:17 Pulse 68bpm; Resp 20bpm; Pulse Ox 100%; Temp 97.7F; 72.57 kg; Height 5 ft. 7 in.; sv BMI: 25.0; sv 17:27 17:26 CORONAVIRUS+MR.LAB.MARVINZ drawn and sent. jp3 jp3
--- NOTE | 2019-12-30 19:02 | EDPHYS ---
Physician Documentation [facility] Name: Joana Nguyen Age: 34 yrs Sex: Female : 1985 Arrival Date: 12/30/2019 Time: 16:07 Bed 17 Private MD: ED Physician Shaheen White HPI: 12/29 19:08 This 34 yrs old Female presents to ER via Ambulatory with complaints of jr8 Headache. 19:08 Pt presents for CHIRINOS progressing over 4 days. The patient states that the pain is jr8 occipital and radiates down her neck. Additional symptoms include blurred vision and N/V. Reports taking Tylenol 3 and Ibuprofen at home with no relief. States that last night her arm began to feel numb as well. The patient is calm and alert at this time.. [employer]: 19:57 LMP N/A - control method ll1 Historical: - Allergies: 16:17 Morphine (Respiratory distress); sv - PMHx: 16:17 Hypertension; psych; Seizures; sv - PSHx: 16:17 Tubal ligation; Appendectomy; Cholecystectomy; sv - Immunization history:: Flu vaccine is not up to date. - Social history:: Smoking status: Patient reports the use of cigarette tobacco products, denies chronic smoking, but will smoke occasionally. ROS: 18:29 Eyes: Negative for injury, pain, redness, and discharge, ENT: Negative for injury, jr8 pain, and discharge, Neck: Negative for injury, pain, and swelling, Cardiovascular: Negative for chest pain, palpitations, and edema, Respiratory: Negative for shortness of breath, cough, wheezing, and pleuritic chest pain, Abdomen/GI: Negative for abdominal pain, nausea, vomiting, diarrhea, and constipation, Back: Negative for injury and pain, MS/Extremity: Negative for injury and deformity, Skin: Negative for injury, rash, and discoloration. 18:29 Neuro: Positive for headache, numbness, tingling, of the face, right arm and right leg. Exam: 18:29 Eyes: Pupils equal round and reactive to light, extra-ocular motions intact. Lids and jr8 lashes normal. Conjunctiva and sclera are non-icteric and not injected. Cornea within normal limits. Periorbital areas with no swelling, redness, or edema. ENT: Nares patent. No nasal discharge, no septal abnormalities noted. Tympanic membranes are normal and external auditory canals are clear. Oropharynx with no redness, swelling, or masses, exudates, or evidence of obstruction, uvula midline. Mucous membranes moist. Neck: Trachea midline, no thyromegaly or masses palpated, and no cervical lymphadenopathy. Supple, full range of motion without nuchal rigidity, or vertebral point tenderness. No Meningismus. Cardiovascular: Regular rate and rhythm with a normal S1 and S2. No gallops, murmurs, or rubs. Normal PMI, no JVD. No pulse deficits. Respiratory: Lungs have equal breath sounds bilaterally, clear to auscultation and percussion. No rales, rhonchi or wheezes noted. No increased work of breathing, no retractions or nasal flaring. Abdomen/GI: Soft, non-tender, with normal bowel sounds. No distension or tympany. No guarding or rebound. No evidence of tenderness throughout. Back: No spinal tenderness. No costovertebral tenderness. Full range of motion. Skin: Warm, dry with normal turgor. Normal color with no rashes, no lesions, and no evidence of cellulitis. MS/ Extremity: Pulses equal, no cyanosis. Neurovascular intact. Full, normal range of motion. Neuro: Awake and alert, GCS 15, oriented to person, place, time, and situation. Cranial nerves II-XII grossly intact. Motor strength 5/5 in all extremities. Sensory grossly intact. Cerebellar exam normal. Normal gait. Vital Signs: 16:17 BP 122 / 91; Pulse 68; Resp 20; Temp 97.7; Pulse Ox 100% ; Weight 72.57 kg; Height 5 sv ft. 7 in. (170.18 cm); 19:10 BP 109 / 79; Pulse 79; Resp 17; Pulse Ox 100% ; Pain 7/10; ll1 19:56 Pain 3/10; ll1 16:17 Body Mass Index 25.06 (72.57 kg, 170.18 cm) sv MDM: 16:53 Patient medically screened. jr8 18:29 Data reviewed: vital signs, nurses notes, lab test result(s), EKG, radiologic studies, jr8 CT scan. Data interpreted: Pulse oximetry: on room air is 100 %. Interpretation: normal. Counseling: I had a detailed discussion with the patient and/or guardian regarding: the historical points, exam findings, and any diagnostic results supporting the discharge/admit diagnosis, lab results, radiology results, the need for outpatient follow up, a family practitioner, to return to the emergency department if symptoms worsen or persist or if there are any questions or concerns that arise at home. Response to treatment: the patient's symptoms have markedly improved after treatment. 12/29 17:04 Order name: COVID-19 [facility] 12/29 17:04 Order name: Basic Metabolic Panel; Complete Time: 18:10 [facility] 12/29 17:04 Order name: CBC with Diff; Complete Time: 17:48 [facility] 12/29 17:04 Order name: LFT's; Complete Time: 18:10 [facility] 12/29 17:04 Order name: Magnesium; Complete Time: 18:10 [facility] 12/29 17:04 Order name: PT-INR; Complete Time: 17:48 [facility] 12/29 17:04 Order name: CT Head Brain wo Cont; Complete Time: 17:48 [facility] 12/29 17:04 Order name: Cardiac monitoring; Complete Time: 17:26 [facility] 12/29 17:04 Order name: IV Saline Lock; Complete Time: 17:11 [facility] 12/29 17:04 Order name: Labs collected and sent; Complete Time: 17:11 [facility] 12/29 17:04 Order name: O2 Per Protocol; Complete Time: 17:11 [facility] 12/29 17:04 Order name: O2 Sat Monitoring; Complete Time: 17:11 [facility] 12/29 17:04 Order name: EKG - Nurse/Tech; Complete Time: 17:37 jr8 Administered Medications: 18:27 Drug: Benadryl 25 mg Route: IVP; Site: right antecubital; ll1 19:55 Follow up: Response: No adverse reaction; RASS: Alert and Calm (0) ll1 18:27 Drug: Reglan 10 mg Route: IVP; Site: right antecubital; ll1 19:55 Follow up: Response: No adverse reaction; RASS: Alert and Calm (0) ll1 19:27 Drug: Decadron - Dexamethasone 10 mg Route: IVP; Site: right antecubital; ll1 19:55 Follow up: Response: No adverse reaction; RASS: Alert and Calm (0) ll1 19:27 Drug: TORadol 30 mg Route: IVP; Site: right antecubital; ll1 19:54 Follow up: Response: No adverse reaction; Pain is decreased; RASS: Alert and Calm (0) ll1 Disposition: 12/30 06:29 Co-signature as Attending Physician, Shaheen White MD I agree with the assessment and [facility] plan of care. Disposition: 12/30/19 19:00 Discharged to Home. Impression: Migraine without aura, intractable. - Condition is Stable. - Discharge Instructions: Migraine Headache. - Prescriptions for Fioricet 50- 325-40 mg Oral tablet - take 2 tablet by ORAL route every 4 hours as needed not to exceed 6 tablets per 24hrs; 20 tablet. - Medication Reconciliation Form, Thank You Letter, Antibiotic Education, Prescription Opioid Use form. - Follow up: Private Physician; When: 2 - 3 days; Reason: Recheck today's complaints, Continuance of care, Re-evaluation by your physician. - Problem is new. - Symptoms have improved. Signatures: Dispatcher [employer] EDShanna Neal RN Shaheen Benitez MD MD cha Roszak, Josh, PA PA jr8 Radha Raygoza RN RN ll1 Corrections: (The following items were deleted from the chart) 12/29 19:57 19:00 12/30/2019 19:00 Discharged to Home. Impression: Migraine without aura, ll1 intractable. Condition is Stable. Forms are Medication Reconciliation Form, Thank You Letter, Antibiotic Education, Prescription Opioid Use. Follow up: Private Physician; When: 2 - 3 days; Reason: Recheck today's complaints, Continuance of care, Re-evaluation by your physician. Problem is new. Symptoms have improved. jr8
[2019-12-30] MEDS ORDERED: dexAMETHasone 4 MG/ML VIAL ONE (19:30)
[2019-12-30] MEDS ORDERED: KETOROLAC 30 MG/ML INJ ONE (19:31)
[2019-12-30 20:27] VITALS: TEMP 97.7; O2SAT 100
[2019-12-30 20:29] VITALS: BP 109/79
--- NOTE | 2020-01-02 07:38 | EKG ---
Test Date: 2019-12-30 Test Time: 17:48:30 Water Superintendent: MIRA MEASUREMENT RESULTS: Intervals: Rate: 81 NV: 142 QRSD: 98 QT: 384 QTc: 446 [place]: P: 87 NV: 142 QRS: 86 T: 78 INTERPRETIVE STATEMENTS: Normal sinus rhythm Normal ECG Compared to ECG 11/21/2017 15:12:17 T-wave abnormality no longer present Electronically Signed On 01-02-20 07:32:57 [employer]ANCH SALES MANAGER by Gerald Salguero
== END 2019-12-30 19:57 | disposition home or self-care (01) ==
LOC: ER 16:02
DX: G43.019 Migraine without aura, intractable, without status migrainosus (principal); Z20.828 Contact with and (suspected) exposure to other viral communicable diseases; I10 Essential (primary) hypertension; F17.210 Nicotine dependence, cigarettes, uncomplicated; Z88.5 Allergy status to narcotic agent
CPT/HCPCS: 36415; 70450; 80048; 80076; 83735; 85025; 85610; 93005; 96374; 96375; 99284; J1100; J1200; J2765; U0002

== ENCOUNTER 2020-03-27 19:31 | Emergency (ER) | payer SELFPAY ==
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
--- NOTE | 2020-03-27 20:00 | ER ---
Nurse's Notes [facility] Name: Joana Nguyen Age: 34 yrs Sex: Female : 1985 Arrival Date: 03/27/2020 Time: 19:32 Bed Waiting Private MD: Diagnosis: ED Course: 03/27 19:32 Patient arrived in ED. cl3 19:45 Patient Not in lobby or restroom when called to triage. ll1 19:53 Patient not in lobby when called to triage. ll1 Administered Medications: No medications were administered Outcome: 20:00 Patient left the ED. ll1 Signatures: Caridad Raygoza cl3 Radha Raygoza, RN RN ll1
== END 2020-03-27 20:00 | disposition left against medical advice (07) ==
LOC: ER 19:31
DX: Z53.21 Procedure and treatment not carried out due to patient leaving prior to being seen by health care provider (principal)

== ENCOUNTER 2020-12-31 10:25 | Emergency (ER) | payer SELFPAY ==
[2020-12-31] MEDS ORDERED: ONDANSETRON 4 MG/2 ML VIAL ONE (10:55)
[2020-12-31] MEDS ORDERED: FENTANYL CITR 100 MCG/2 ML ONE (10:55)
[2020-12-31 11:13] LABS: Absolute Lymphocytes (CBC) 1.2 K/uL (0.7-4.9); Basophils % 0.2 % (0-1.3); Hematocrit 32.8 % (36.0-45.0); Lymphocytes % 11.8 % (15.3-44.8); MPV 6.8 fL (7.6-11.3); RBC Red Blood Cell Count 3.89 M/uL (3.86-4.86)
[2020-12-31 11:33] LABS: Protime INR 1.06
[2020-12-31 11:34] LABS: ALT/SGPT 19 U/L (12-78); AST/SGOT 14 U/L (15-37); Albumin 3.3 g/dL (3.4-5.0); Alkaline Phosphatase 74 U/L (45-117); BUN Blood Urea Nitrogen 13 mg/dL (7-18); Bicarbonate 23 mmol/L (21-32); Bilirubin Direct 0.1 mg/dL (0-0.2); Bilirubin Total 0.4 mg/dL (0.2-1.0); Glucose Level 95 mg/dL (74-106); Lipase 65 U/L (73-393); Magnesium 1.9 mg/dL (1.8-2.4); NT PRO-BNP 46 pg/mL (<125); Potassium 3.6 mmol/L (3.5-5.1); Protein, Total 7.3 g/dL (6.4-8.2); Sodium Level 139 mmol/L (136-145); Troponin (Emerg Dept Use Only) < 0.02 ng/mL (0.0-0.045)
[2020-12-31 12:15] LABS: Urine Blood Negative (Negative); Urine Glucose Negative (Negative); Urine Protein 1+ (Negative)
[2020-12-31 12:38] LABS: Barbiturates NEGATIVE (NEGATIVE); Benzodiazepines NEGATIVE (NEGATIVE); Cocaine NEGATIVE (NEGATIVE); METHAMPHETAM POSITIVE (NEGATIVE); Methadone NEGATIVE (NEGATIVE); Opiates NEGATIVE (NEGATIVE); Phencyclidine NEGATIVE (NEGATIVE); THC Cannibis NEGATIVE (NEGATIVE)
--- NOTE | 2020-12-31 12:40 | RAD REPORT ---
EXAM DESCRIPTION: CTAngio Aorta For Dissection - 12/31/2020 12:25 pm CLINICAL HISTORY: CHEST PAIN COMPARISON: [facility] Protocol dated 09/18/2016 TECHNIQUE: CTA of the chest, abdomen, and pelvis was performed with MIPS. All CT scans are performed using dose optimization technique as appropriate and may include automated exposure control or mA/KV adjustment according to patient size. FINDINGS: Thorax: Chest Wall: No abnormal mass Lungs: No acute abnormality. Pleura: No effusions or pneumothorax. Barbie/Mediastinum: No lymphadenopathy. Aorta/Pulmonary Arteries: Unremarkable Heart: Normal size. Abdomen/Pelvis: Liver: No acute abnormality or suspicious lesions. Biliary: No biliary ductal dilatation. Cholecystectomy . Stomach: No significant focal abnormality. Duodenum: No significant focal abnormality. Pancreas: No significant abnormality. Spleen: No significant abnormality. Adrenal: No suspicious lesions. Kidney/ureter: No hydronephrosis. No renal calculi. Poorly characterized left upper pole renal lesion measuring 17 millimeters. Retroperitoneum: No retroperitoneal adenopathy. Vascular: No aneurysm. Bowel: No significant focal abnormality. Peritoneum: No ascites or free air. Bladder: Grossly unremarkable. Reproductive: No adnexal masses. Bones: No acute fracture. Other: n/a IMPRESSION: 1. No aortic aneurysm, aortic dissection, or pulmonary embolus identified. 2. Incompletely characterized left upper pole renal lesion. Recommend nonemergent renal ultrasound fo r further evaluation.
--- NOTE | 2020-12-31 13:03 | RAD REPORT ---
EXAM DESCRIPTION: Melodie Single View12/31/2020 11:47 am CLINICAL HISTORY: Chest pain COMPARISON: 2019 FINDINGS: The lungs appear clear of acute infiltrate. The heart is normal size IMPRESSION: No acute abnormalities displayed
[2020-12-31] MEDS ORDERED: CEFTRIAXONE 1000 MG/VIAL ONE (13:04)
--- NOTE | 2020-12-31 15:31 | ER ---
Nurse's Notes [facility] Name: Joana Nguyen Age: 35 yrs Sex: Female : 1985 Arrival Date: 12/31/2020 Time: 10:26 Bed 23 Private MD: Diagnosis: Chest pain, unspecified;Other stimulant abuse-methampethamine abuse;UTI/ Urinary tract infection, site not specified Presentation: 12/31 10:21 Chief complaint: EMS states: Sister called EMS due to Chest pain that began this vg1 morning. Stated LUZ MARIA feet swelling for a couple of days, stated LUZ MARIA shoulder pain that radiates to chest, back and Epigastric area, states pain in sharp and has pain during deep inhalation. Denies cough, NVD. EMS administered 324 mg of Aspirin PO. 10:21 Coronavirus screen: Vaccine status: Patient reports being unvaccinated. Client denies [facility] travel out of the [place] in the last 14 days. Client presents with at least one sign or symptom that may indicate coronavirus-19. Standard/surgical mask placed on the client. Ebola Screen: Patient negative for fever greater than or equal to 101.5 degrees Fahrenheit, and additional compatible Ebola Virus Disease symptoms. Initial Sepsis Screen: Does the patient meet any 2 criteria? No. Patient's initial sepsis screen is negative. Does the patient have a suspected source of infection? No. Patient's initial sepsis screen is negative. Risk Assessment: Do you want to hurt yourself or someone else? Patient reports no desire to harm self or others. Onset of symptoms was December 31, 2020. 10:21 Method Of Arrival: EMS: [place] [id number] 10:21 Acuity: ERICKA 3 vg1 Triage Assessment: 10:34 General: Appears in no apparent distress. uncomfortable, Behavior is cooperative, vg1 anxious, crying. Pain: Complains of pain in LUZ MARIA shoulders, back, Epigastric Pain currently is 8 out of 10 on a pain scale. Pain began this morning. EENT: No signs and/or symptoms were reported regarding the EENT system. Neuro: Level of Consciousness is awake, alert, obeys commands, Oriented to person, place, time, situation. Cardiovascular: Patient's skin is warm and dry. Rhythm is sinus rhythm. Respiratory: Reports pain with respiration Airway is patent Respiratory effort is even, unlabored, Denies cough. GI: Abdomen is round non-distended, Patient currently denies diarrhea, nausea, vomiting. : No signs and/or symptoms were reported regarding the genitourinary system. Derm: Skin is intact, is healthy with good turgor. Musculoskeletal: Circulation, motion, and sensation intact. 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 - Social history:: Smoking status: Patient reports the use of cigarette tobacco products, smokes one-half pack cigarettes per day. Screenin:36 Abuse screen: Denies threats or abuse. Nutritional screening: No deficits noted. vg1 Tuberculosis screening: No symptoms or risk factors identified. Fall Risk No fall in past 12 months (0 pts). No secondary diagnosis (0 pts). IV access (20 points). Ambulatory Aid- None/Bed Rest/Nurse Assist (0 pts). Gait- Normal/Bed Rest/Wheelchair (0 pts) Mental Status- Oriented to own ability (0 pts). Total Albarran Fall Scale indicates No Risk (0-24 pts). Assessment: 10:21 Reassessment: see triage. vg1 11:24 Reassessment: Patient appears in no apparent distress at this time. Patient and/or vg1 family updated on plan of care and expected duration. Pain level reassessed. Patient is alert, oriented x 3, equal unlabored respirations, skin warm/dry/pink. Pt rates pain 5/10. 11:27 Reassessment: Xray at bedside. vg1 12:30 Reassessment: Patient appears in no apparent distress at this time. Patient and/or vg1 family updated on plan of care and expected duration. Pain level reassessed. Patient is alert, oriented x 3, equal unlabored respirations, skin warm/dry/pink. 14:40 Reassessment: Patient appears in no apparent distress at this time. Patient and/or vg1 family updated on plan of care and expected duration. Pain level reassessed. Patient is alert, oriented x 3, equal unlabored respirations, skin warm/dry/pink. pt states pain in chest and back 'comes and goes'. Rates pain 6/10. Provider notified. 15:49 Reassessment: Patient appears in no apparent distress at this time. No changes from vg1 previously documented assessment. Patient and/or family updated on plan of care and expected duration. Pain level reassessed. Patient is alert, oriented x 3, equal unlabored respirations, skin warm/dry/pink. Vital Signs: 10:21 BP 135 / 106; Pulse 96; Resp 20; Temp 98.5(O); Pulse Ox 97% ; Weight 40.82 kg; Height 5 vg1 ft. 7 in. (170.18 cm); Pain 8/10; 10:50 BP 140 / 105 LA; Pulse 93; Resp 18; Pulse Ox 100% ; vg1 10:52 BP 125 / 94 RA; Pulse 88; Resp 18; Pulse Ox 100% ; vg1 11:24 Pain 5/10; vg1 11:33 BP 129 / 95; Pulse 87; Resp 19; Pulse Ox 100% ; vg1 13:13 BP 122 / 102; Pulse 90; Resp 20; Pulse Ox 100% ; vg1 13:30 BP 126 / 104; Pulse 92; Resp 16; Pulse Ox 100% ; vg1 14:30 BP 116 / 87; Pulse 94; Resp 18; Pulse Ox 100% ; vg1 15:00 BP 128 / 95; Pulse 89; Resp 17; Temp 98.9(O); Pulse Ox 98% on R/A; vg1 10:21 Body Mass Index 14.10 (40.82 kg, 170.18 cm) vg1 ED Course: 10:26 Patient arrived in ED. am2 10:28 Marlon Todd NP is PHCP. pm1 10:28 Albert Thakkar MD is Attending Physician. pm1 10:30 Claire Giang, IAN is Primary Nurse. vg1 10:34 Triage completed. vg1 10:34 Arm band placed on. vg1 10:36 Patient has correct armband on for positive identification. Placed in gown. Bed in low vg1 position. Call light in reach. Side rails up X 1. athletic monitor on. Pulse ox on. NIBP on. 10:36 No provider procedures requiring assistance completed. Maintain EMS IV. Dressing vg1 intact. Good blood return noted. Site clean \T\ dry. Gauge \T\ site: 20 R AC. 11:47 XRAY Chest (1 view) In Process Unspecified. EDMS 12:25 CT Aorta for Dissection In Process Unspecified. EDMS 14:41 Lab(s) recollected, by me, sent to lab. vg1 15:50 IV discontinued, intact, bleeding controlled, No redness/swelling at site. Pressure vg1 dressing applied. Administered Medications: 10:58 Drug: Zofran (Ondansetron) 4 mg Route: IVP; Site: right antecubital; vg1 11:24 Follow up: Response: No adverse reaction vg1 11:01 Drug: fentaNYL (PF) 50 mcg Route: IVP; Site: right antecubital; vg1 11:24 Follow up: Pain 5/10 Adult; Response: Pain is decreased vg1 13:12 Drug: Rocephin (cefTRIAXone) 1 grams Route: IV; Rate: calculated rate; Site: right vg1 antecubital; 15:40 Follow up: Response: No adverse reaction vg1 15:51 Follow up: IV Status: Completed infusion vg1 15:49 Drug: Ketorolac 30 mg Route: IVP; Site: right antecubital; vg1 15:49 Follow up: Response: Medication administered at discharge. vg1 Outcome: 15:30 Discharge ordered by MD. pm1 15:50 Discharged to home ambulatory, with friend. vg1 15:50 Condition: stable 15:50 Discharge instructions given to patient, Instructed on discharge instructions, follow up and referral plans. medication usage, Demonstrated understanding of instructions, follow-up care, medications, Prescriptions given X 2. 15:51 Patient left the ED. vg1 Signatures: Dispatcher [employer] EDMS Marlon Todd NP DERRICK BARGE OPERATOR pm1 Sandra Cowan am2 Claire Giang RN RN vg1 Corrections: (The following items were deleted from the chart) 11:29 10:34 Respiratory: Airway is patent Respiratory effort is even, unlabored, vg1 vg1 15:50 15:00 BP 128 / 95; Pulse 89bpm; Resp 17bpm; Pulse Ox 98% RA; vg1 vg1
--- NOTE | 2020-12-31 15:31 | EDPHYS ---
Physician Documentation [facility] Name: Joana Nguyen Age: 35 yrs Sex: Female : 1985 Arrival Date: 12/31/2020 Time: 10:26 Bed 23 Private MD: ED Physician Albert Thakkar HPI: 12/31 11:09 This 35 yrs old Female presents to ER via EMS with complaints of Abdominal pm1 Pain, Back Pain, Chest Pain. 11:09 The patient or guardian reports chest pain that is located primarily in the xiphoid pm1 area and epigastric area. 11:09 The pain radiates to chest from the back. Associated signs and symptoms: Pertinent pm1 positives: abdominal pain, to epigastric area, Pertinent negatives: cough, headache, nausea, shortness of breath, vomiting. The chest pain is described as sharp. Duration: The patient or guardian reports a single episode. 11:09 Modifying factors: The symptoms are alleviated by nothing. the symptoms are aggravated pm1 by deep breath, palpation of area. Severity of pain: in the emergency department the pain is unchanged. The patient has not experienced similar symptoms in the past. The patient has not recently seen a physician. PRIMARY CLINICIAN: 10:34 LMP 12/17/2020 vg1 Historical: - Allergies: 10:34 Morphine (Respiratory distress); vg1 - Home Meds: 10:34 Keppra 500 mg Oral tab 1 tab 2 times per day [Active]; vg1 - PMHx: 10:34 Hypertension; psych; Seizures; Depressive disorder; Migraine; Anxiety; vg1 - PSHx: 10:34 Cholecystectomy; Appendectomy; vg1 - Immunization history:: Adult Immunizations up to date, Client reports having NOT received the Covid vaccine. - Social history:: Smoking status: Patient reports the use of cigarette tobacco products, smokes one-half pack cigarettes per day. ROS: 11:09 Constitutional: Negative for fever, chills, and weight loss, Eyes: Negative for injury, pm1 pain, redness, and discharge, ENT: Negative for injury, pain, and discharge. 11:09 Respiratory: Negative for shortness of breath, cough, wheezing, and pleuritic chest pain. 11:09 : Negative for injury, bleeding, discharge, and swelling, MS/Extremity: Negative for injury and deformity, Skin: Negative for injury, rash, and discoloration. 11:09 Cardiovascular: Positive for chest pain, Negative for edema, palpitations. 11:09 Abdomen/GI: Positive for abdominal pain, of the epigastric area, Negative for nausea, vomiting, and diarrhea, constipation. 11:09 Back: Positive for of the between shoulder blades, Negative for injury or acute deformity, decreased range of motion. 11:09 All other systems are negative. Exam: 11:09 Constitutional: This is a well developed, well nourished patient who is awake, alert, pm1 and in no acute distress. Head/Face: Normocephalic, atraumatic. 11:09 Skin: Warm, dry with normal turgor. Normal color with no rashes, no lesions, and no evidence of cellulitis. MS/ Extremity: Pulses equal, no cyanosis. Neurovascular intact. Full, normal range of motion. 11:09 Chest/axilla: Inspection: normal, Palpation: tenderness, that is moderate, of the xiphoid area, that totally reproduces the patient's complaints. 11:09 Cardiovascular: Exam negative for acute changes, Rate: normal, Rhythm: regular, Pulses: no pulse deficits are appreciated. 11:09 Respiratory: Exam negative for acute changes, respiratory distress, shortness of breath, Breath sounds: are clear throughout. 11:09 Abdomen/GI: Exam negative for acute changes, Inspection: abdomen appears normal, Palpation: soft, in all quadrants, mild abdominal tenderness, in the epigastric area. 11:09 Back: muscle spasm, is appreciated in the between shoulder blades, Tenderness between shoulder blades. 11:09 Neuro: Exam negative for acute changes, Orientation: is normal, Mentation: is normal, Motor: is normal, moves all fours. Vital Signs: 10:21 BP 135 / 106; Pulse 96; Resp 20; Temp 98.5(O); Pulse Ox 97% ; Weight 40.82 kg; Height 5 vg1 ft. 7 in. (170.18 cm); Pain 8/10; 10:50 BP 140 / 105 LA; Pulse 93; Resp 18; Pulse Ox 100% ; vg1 10:52 BP 125 / 94 RA; Pulse 88; Resp 18; Pulse Ox 100% ; vg1 11:24 Pain 5/10; vg1 11:33 BP 129 / 95; Pulse 87; Resp 19; Pulse Ox 100% ; vg1 13:13 BP 122 / 102; Pulse 90; Resp 20; Pulse Ox 100% ; vg1 13:30 BP 126 / 104; Pulse 92; Resp 16; Pulse Ox 100% ; vg1 14:30 BP 116 / 87; Pulse 94; Resp 18; Pulse Ox 100% ; vg1 15:00 BP 128 / 95; Pulse 89; Resp 17; Temp 98.9(O); Pulse Ox 98% on R/A; vg1 10:21 Body Mass Index 14.10 (40.82 kg, 170.18 cm) vg1 MDM: 10:40 Patient medically screened. pm1 12:45 Data reviewed: vital signs. Data interpreted: Pulse oximetry: on room air is 100 %. pm1 Interpretation: normal. 13:50 ED course: Patient reports speed use recently about 1 week ago with her brother . pm1 15:29 Counseling: I had a detailed discussion with the patient and/or guardian regarding: the pm1 historical points, exam findings, and any diagnostic results supporting the discharge/admit diagnosis, lab results, radiology results, the need for outpatient follow up, to return to the emergency department if symptoms worsen or persist or if there are any questions or concerns that arise at home. 15:29 Differential diagnosis: acute myocardial infarction, chest wall pain, Cholelithiasis pm1 pericarditis, pneumonia, pulmonary embolus, drug abuse. 15:49 ED course: Negative troponin 4 hours apart. Patient positive for methamphetamine abuse. pm1 Chest pain reproducible by palpation and deep breathing. Patient will be discharged home with follow-up with PCP. 12/31 10:49 Order name: Basic Metabolic Panel pm1 12/31 10:49 Order name: CBC with Diff pm1 12/31 10:49 Order name: LFT's pm1 12/31 10:49 Order name: Magnesium pm1 12/31 10:49 Order name: NT PRO-BNP; Complete Time: 12:16 pm1 12/31 10:49 Order name: PT-INR; Complete Time: 12:16 pm1 12/31 10:49 Order name: Troponin (emerg Dept Use Only); Complete Time: 12:16 pm1 12/31 10:49 Order name: Lipase; Complete Time: 12:16 pm1 12/31 10:49 Order name: UDS; Complete Time: 12:39 pm1 12/31 10:49 Order name: Basic Metabolic Panel; Complete Time: 12:16 EDMS 12/31 10:49 Order name: CBC with Automated Diff; Complete Time: 12:16 EDMS 12/31 10:49 Order name: Liver (Hepatic) Function; Complete Time: 12:16 EDMS 12/31 10:49 Order name: Magnesium; Complete Time: 12:16 EDMS 12/31 12:14 Order name: Urine Dipstick-Ancillary; Complete Time: 12:16 EDMS 12/31 10:49 Order name: XRAY Chest (1 view); Complete Time: 13:11 pm1 12/31 10:49 Order name: EKG; Complete Time: 10:49 pm1 12/31 10:49 Order name: Cardiac monitoring; Complete Time: 10:53 pm1 12/31 10:49 Order name: EKG - Nurse/Tech; Complete Time: 10:53 pm1 12/31 10:49 Order name: IV Saline Lock; Complete Time: 11:05 pm1 12/31 10:49 Order name: Labs collected and sent; Complete Time: 11:05 pm1 12/31 10:49 Order name: O2 Per Protocol; Complete Time: 10:53 pm1 12/31 10:49 Order name: O2 Sat Monitoring; Complete Time: 10:53 pm1 12/31 10:49 Order name: Urine Dipstick-Ancillary (obtain specimen); Complete Time: 12:16 pm1 12/31 10:49 Order name: CT Aorta for Dissection; Complete Time: 12:44 pm1 12/31 12:17 Order name: Urine --Ancillary (enter results); Complete Time: 14:16 em1 12/31 14:17 Order name: Troponin (emerg Dept Use Only): Draw at 1430; Complete Time: 15:29 pm1 12/31 10:49 Order name: Urine Test (obtain specimen); Complete Time: 12:16 pm1 Administered Medications: 10:58 Drug: Zofran (Ondansetron) 4 mg Route: IVP; Site: right antecubital; vg1 11:24 Follow up: Response: No adverse reaction vg1 11:01 Drug: fentaNYL (PF) 50 mcg Route: IVP; Site: right antecubital; vg1 11:24 Follow up: Pain 5/10 Adult; Response: Pain is decreased vg1 13:12 Drug: Rocephin (cefTRIAXone) 1 grams Route: IV; Rate: calculated rate; Site: right vg1 antecubital; 15:40 Follow up: Response: No adverse reaction vg1 15:51 Follow up: IV Status: Completed infusion vg1 15:49 Drug: Ketorolac 30 mg Route: IVP; Site: right antecubital; vg1 15:49 Follow up: Response: Medication administered at discharge. vg1 Disposition: 17:03 Co-signature as Attending Physician, Albert Thakkar MD I agree with the assessment and rn plan of care. Attestation: The patient's history, exam findings, diagnostics, and a summary of any interventions or procedures was reviewed in detail with Marlon Todd NP. Disposition Summary: 12/31/20 15:30 Discharge Ordered Location: Home pm1 Problem: new pm1 Symptoms: have improved pm1 Condition: Stable pm1 Diagnosis - Chest pain, unspecified pm1 - Other stimulant abuse - methampethamine abuse pm1 - UTI/ Urinary tract infection, site not specified pm1 Followup: pm1 - With: Emergency Department - When: As needed - Reason: Worsening of condition Followup: pm1 - With: Private Physician - When: 2 - 3 days - Reason: Recheck today's complaints, Continuance of care, Re-evaluation by your physician Discharge Instructions: - Discharge Summary Sheet pm1 - Nonspecific Chest Pain, Adult pm1 - Urinary Tract Infection, Adult pm1 - Methamphetamines Use Disorder pm1 Forms: - Medication Reconciliation Form pm1 - Thank You Letter pm1 - Antibiotic Education pm1 - Prescription Opioid Use pm1 Prescriptions: - Bactrim DS 800-160 mg Oral Tablet - take 1 tablet by ORAL route every 12 hours for 10 days; 20 tablet; Refills: 0, pm1 Product Selection Permitted - Diclofenac Sodium 75 mg Oral tablet,delayed release (DR/EC) - take 1 tablet by ORAL route 2 times per day As needed; 30 tablet; Refills: 0, pm1 Product Selection Permitted Signatures: Dispatcher [employer] Albert Orr MD MD rn Marinas, Patrick, NP MANAGING SUPERVISOR pm1 Claire Giang RN RN vg1
[2020-12-31] MEDS ORDERED: KETOROLAC 30 MG/ML INJ ONE (15:41)
[2020-12-31 16:06] VITALS: BP 128/95; TEMP 98.9; O2SAT 98
== END 2020-12-31 15:51 | disposition home or self-care (01) ==
LOC: ER 10:25
DX: F15.10 Other stimulant abuse, uncomplicated (principal); N39.0 Urinary tract infection, site not specified; I10 Essential (primary) hypertension; F17.210 Nicotine dependence, cigarettes, uncomplicated; G40.909 Epilepsy, unspecified, not intractable, without status epilepticus; Z88.5 Allergy status to narcotic agent
CPT/HCPCS: 36415; 71045; 71275; 74175; 80048; 80076; 80307; 81003; 81025; 83690; 83735; 83880; 84484; 85025; 85610; 96365; 96366; 96375; 99284; J2405; J3010; Q9967

== ENCOUNTER 2021-05-17 13:08 | Emergency (ER) | payer OTHER ==
[2021-05-17] MEDS ORDERED: NA CHLORIDE 0.9% 1,000 ML ONE (14:02)
[2021-05-17] MEDS ORDERED: KETOROLAC 30 MG/ML INJ ONE (14:02)
[2021-05-17 14:09] LABS: Hematocrit 35.7 % (36.0-45.0); Lymphocytes % 32.9 % (15.3-44.8); MPV 6.4 fL (7.6-11.3); RBC Red Blood Cell Count 4.41 M/uL (3.86-4.86)
[2021-05-17 14:25] LABS: Potassium 3.4 mmol/L (3.5-5.1)
[2021-05-17 15:33] LABS: SARS-COV-2 RT PCR NEGATIVE (NEGATIVE)
--- NOTE | 2021-05-17 15:44 | ER ---
Nurse's Notes [facility] Name: Joana Casey Age: 35 yrs Sex: Female : 1985 Arrival Date: 05/17/2021 Time: 13:12 Bed 30 Private MD: Diagnosis: Infectious mononucleosis, unspecified without complication Presentation: 05/17 13:31 Chief complaint: Patient states: to back of head and back of neck that began last aa5 night. Pt also reports nausea. Coronavirus screen: headache. Ebola Screen: No symptoms or risks identified at this time. Initial Sepsis Screen: Does the patient meet any 2 criteria? No. Patient's initial sepsis screen is negative. Does the patient have a suspected source of infection? No. Patient's initial sepsis screen is negative. Risk Assessment: Do you want to hurt yourself or someone else? Patient reports no desire to harm self or others. Onset of symptoms was April 2021. 13:31 Method Of Arrival: Ambulatory aa5 13:31 Acuity: ERICKA 3 aa5 Historical: - Allergies: 13:32 Eggs; aa5 13:32 Morphine (Respiratory distress); aa5 13:32 Tomato (Solanum Lycopersicum); aa5 - Home Meds: 13:32 Keppra 500 mg Oral tab 1 tab 2 times per day [Active]; Nortriptyline Oral [Active]; aa5 - PMHx: 13:32 Anxiety; depressive disorder; Hypertension; Migraine; psych; Seizures; aa5 - PSHx: 13:32 Appendectomy; Cholecystectomy; aa5 - Immunization history:: Flu vaccine is not up to date. - Social history:: Smoking status: Patient reports the use of cigarette tobacco products, 1-2 cigarettes a day . Screenin:04 Abuse screen: Denies threats or abuse. Denies injuries from another. Nutritional ab2 screening: No deficits noted. Tuberculosis screening: No symptoms or risk factors identified. Fall Risk None identified. Assessment: 14:02 General: Appears in no apparent distress. uncomfortable, Behavior is calm, cooperative, ab2 appropriate for age. Pain: Complains of pain in head and neck Pain currently is 10 out of 10 on a pain scale. Neuro: Level of Consciousness is awake, alert, obeys commands, Oriented to person, place, time, situation, Appropriate for age Lens Grinder And Polisher are equal bilaterally Moves all extremities. Gait is steady, Speech is normal, Facial symmetry appears normal. Cardiovascular: No deficits noted. Denies chest pain, shortness of breath, Heart tones S1 S2 present Patient's skin is warm and dry. Respiratory: No deficits noted. Airway is patent Respiratory effort is even, unlabored, Respiratory pattern is regular, symmetrical, Breath sounds are clear bilaterally. GI: No deficits noted. No signs and/or symptoms were reported involving the gastrointestinal system. Abdomen is round non-distended, Bowel sounds present X 4 quads. : No deficits noted. No signs and/or symptoms were reported regarding the genitourinary system. EENT: No deficits noted. No signs and/or symptoms were reported regarding the EENT system. Derm: No deficits noted. No signs and/or symptoms reported regarding the dermatologic system. Skin is intact, is healthy with good turgor, Skin is dry, Skin is pink, warm \\T\\ dry. Musculoskeletal: No deficits noted. No signs and/or symptoms reported regarding the musculoskeletal system. Vital Signs: 13:31 BP 141 / 111; Pulse 89; Resp 20 S; Temp 98.8(TE); Pulse Ox 100% on R/A; Weight 81.65 kg aa5 (R); Height 5 ft. 7 in. (170.18 cm) (R); Pain 9/10; 15:08 BP 147 / 98; Pulse 81; Resp 15; Pulse Ox 98% on R/A; ab2 15:53 BP 138 / 97; Pulse 79; Resp 16; Pulse Ox 100% on R/A; ab2 13:31 Body Mass Index 28.19 (81.65 kg, 170.18 cm) aa5 Abiel Coma Score: 15:14 Eye Response: spontaneous(4). Verbal Response: oriented(5). Motor Response: obeys kb commands(6). Total: 15. ED Course: 13:12 Patient arrived in ED. ds1 13:31 Arm band placed on. aa5 13:32 Triage completed. aa5 13:40 Logan Krishna is Primary Nurse. ab2 13:41 [facility]-C [facility]. kb 13:41 Ben Gramajo MD is Attending Physician. kb 13:55 Inserted saline lock: 20 gauge in right antecubital area, using aseptic technique. ab2 Blood collected. 14:02 COVID-19/FLU A+B (Document "Date of Onset" if Symptomatic) Sent. ab2 14:02 [place] Screen Profile Sent. ab2 14:02 Basic Metabolic Panel Sent. ab2 14:02 CBC with Diff Sent. ab2 14:04 Patient has correct armband on for positive identification. Bed in low position. Call ab2 light in reach. Side rails up X2. 14:04 No provider procedures requiring assistance completed. ab2 16:00 IV discontinued, intact, bleeding controlled, No redness/swelling at site. Pressure ab2 dressing applied. Administered Medications: 14:02 Drug: NS 0.9% 1000 ml Route: IV; Rate: 1000 ml; Site: right antecubital; ab2 15:54 Follow up: Response: No adverse reaction ab2 15:54 Follow up: IV Status: Completed infusion ab2 14:02 Drug: Ketorolac 30 mg Route: IVP; Site: right antecubital; ab2 15:54 Follow up: Response: No adverse reaction ab2 Outcome: 15:44 Discharge ordered by . kb 16:00 Discharged to home ambulatory. ab2 16:00 Condition: good 16:00 Discharge instructions given to patient, Instructed on discharge instructions, follow up and referral plans. Demonstrated understanding of instructions, follow-up care. 16:00 Patient left the ED. ab2 Signatures: Amy Eckert, SHUTTLE PREPARATION SUPERVISOR-C SHUTTLE PREPARATION SUPERVISOR-Ckb Landy Castañeda ds1 Constance Cifuentes, RN RN aa5 Logan Krishna ab2
--- NOTE | 2021-05-17 15:44 | EDPHYS ---
Physician Documentation [facility] Name: Joana Casey Age: 35 yrs Sex: Female : 1985 Arrival Date: 05/17/2021 Time: 13:12 Bed 30 Private MD: ED Physician Ben Gramajo HPI: 05/17 15:14 This 35 yrs old Female presents to ER via Ambulatory with complaints of Headache, Neck kb Pain. 15:14 The patient has not experienced similar symptoms in the past. The patient has not kb recently seen a physician. 15:14 The patient or guardian reports headache, neck pain, nausea, malaise. Onset: The kb symptoms/episode began/occurred yesterday. Severity of symptoms: At their worst the symptoms were moderate, in the emergency department the symptoms are unchanged. Modifying factors: The symptoms are alleviated by nothing, the symptoms are aggravated by nothing. Associated signs and symptoms: Pertinent positives: nausea, headache, neck pain, pressure below ears, malaise, rhinorrhea, congestion. Historical: - Allergies: 13:32 Eggs; aa5 13:32 Morphine (Respiratory distress); aa5 13:32 Tomato (Solanum Lycopersicum); aa5 - Home Meds: 13:32 Keppra 500 mg Oral tab 1 tab 2 times per day [Active]; Nortriptyline Oral [Active]; aa5 - PMHx: 13:32 Anxiety; depressive disorder; Hypertension; Migraine; psych; Seizures; aa5 - PSHx: 13:32 Appendectomy; Cholecystectomy; aa5 - Immunization history:: Flu vaccine is not up to date. - Social history:: Smoking status: Patient reports the use of cigarette tobacco products, 1-2 cigarettes a day . ROS: 15:16 Respiratory: Negative for shortness of breath, cough, wheezing, and pleuritic chest kb pain. 15:16 Constitutional: Positive for malaise. 15:16 ENT: Positive for rhinorrhea, sinus congestion. 15:16 Neck: Positive for pain at rest. 15:16 Abdomen/GI: Positive for nausea. 15:16 Neuro: Positive for headache. 15:16 All other systems are negative. Exam: 15:15 Constitutional: This is a well developed, well nourished patient who is awake, alert, kb and in no acute distress. Head/Face: Normocephalic, atraumatic. ENT: Moist Mucous membranes Neck: Trachea midline, no thyromegaly or masses palpated, and no cervical lymphadenopathy. Supple, full range of motion without nuchal rigidity, or vertebral point tenderness. No Meningismus. Cardiovascular: Regular rate and rhythm with a normal S1 and S2. No gallops, murmurs, or rubs. No pulse deficits. Respiratory: Respirations even and unlabored. No increased work of breathing. Talking in full sentences Skin: Warm, dry with normal turgor. Normal color. MS/ Extremity: Pulses equal, no cyanosis. Neurovascular intact. Full, normal range of motion. Neuro: Awake and alert, GCS 15, oriented to person, place, time, and situation. Moves all extremities. Normal gait. Psych: Awake, alert, with orientation to person, place and time. Behavior, mood, and affect are within normal limits. Vital Signs: 13:31 BP 141 / 111; Pulse 89; Resp 20 S; Temp 98.8(TE); Pulse Ox 100% on R/A; Weight 81.65 kg aa5 (R); Height 5 ft. 7 in. (170.18 cm) (R); Pain 9/10; 15:08 BP 147 / 98; Pulse 81; Resp 15; Pulse Ox 98% on R/A; ab2 15:53 BP 138 / 97; Pulse 79; Resp 16; Pulse Ox 100% on R/A; ab2 13:31 Body Mass Index 28.19 (81.65 kg, 170.18 cm) aa5 Abiel Coma Score: 15:14 Eye Response: spontaneous(4). Verbal Response: oriented(5). Motor Response: obeys kb commands(6). Total: 15. MDM: 13:42 Patient medically screened. kb 15:11 Data reviewed: vital signs, nurses notes. Data interpreted: Pulse oximetry: on room air kb is 98 %. Interpretation: normal. 15:44 Counseling: I had a detailed discussion with the patient and/or guardian regarding: the kb historical points, exam findings, and any diagnostic results supporting the discharge/admit diagnosis, lab results, the need for outpatient follow up, a family practitioner, to return to the emergency department if symptoms worsen or persist or if there are any questions or concerns that arise at home. 05/17 13:45 Order name: CBC with Diff; Complete Time: 14:13 kb 05/17 13:45 Order name: Basic Metabolic Panel; Complete Time: 14:25 kb 05/17 13:45 Order name: COVID-19/FLU A+B (Document "Date of Onset" if Symptomatic); Complete Time: kb 15:42 05/17 13:45 Order name: [place] Screen Profile; Complete Time: 14:56 kb 05/17 13:45 Order name: IV Start; Complete Time: 14:02 kb Administered Medications: 14:02 Drug: NS 0.9% 1000 ml Route: IV; Rate: 1000 ml; Site: right antecubital; ab2 15:54 Follow up: Response: No adverse reaction ab2 15:54 Follow up: IV Status: Completed infusion ab2 14:02 Drug: Ketorolac 30 mg Route: IVP; Site: right antecubital; ab2 15:54 Follow up: Response: No adverse reaction ab2 Disposition: 18:15 Co-signature as Attending Physician, Ben Gramajo MD I agree with the assessment and kdr plan of care. Disposition Summary: 05/17/21 15:44 Discharge Ordered Location: Home kb Condition: Stable kb Diagnosis - Infectious mononucleosis, unspecified without complication kb Followup: kb - With: Emergency Department - When: As needed - Reason: Worsening of condition Followup: kb - With: Private Physician - When: 2 - 3 days - Reason: Recheck today's complaints, Continuance of care, Re-evaluation by your physician Discharge Instructions: - Discharge Summary Sheet kb - Infectious Mononucleosis kb Forms: - Medication Reconciliation Form kb - Thank You Letter kb - Antibiotic Education kb - Prescription Opioid Use kb Signatures: Dispatcher [employer] EDAmy Fulton, IC DESIGNER CUSTOM-C IC DESIGNER CUSTOM-Ben Whyte MD MD kdr Calderon, Audri, RN RN aa5 Logan Krishna ab2 Corrections: (The following items were deleted from the chart) 15:17 15:14 Associated signs and symptoms: Pertinent positives: nausea, headache, neck pain, kb pressure below ears, malaise, kb
[2021-05-17 16:21] VITALS: TEMP 98.8
[2021-05-17 16:24] VITALS: BP 138/97; O2SAT 100
== END 2021-05-17 16:00 | disposition home or self-care (01) ==
LOC: ER 13:08
DX: B27.90 Infectious mononucleosis, unspecified without complication (principal); Z20.822 Contact with and (suspected) exposure to COVID-19; I10 Essential (primary) hypertension; F32.A Depression, unspecified; F17.210 Nicotine dependence, cigarettes, uncomplicated; Z88.5 Allergy status to narcotic agent; Z91.012 Allergy to eggs; Z91.018 Allergy to other foods
CPT/HCPCS: 96361; 85025; 80048; 36415; 86308; 0240U; 96374; 99283; J7030

== ENCOUNTER 2021-07-10 15:30 | Emergency (ER) | payer OTHER ==
--- OUTSIDE RECORDS SUMMARY | 2021-07-10 15:32 | XMS REPORT | Continuity of Care Document ---
:1985 Author Organization [facility] t Address [address] [place] [address] Care Team Providers Name Role Phone Lashon Clemente Attending Clinician Unavailable ALONSO, Lashon Attending Clinician Unavailable Mary GILL, F Attending Clinician Doctor Unassigned, Name Attending Clinician Unavailable Payers Payer Name Policy Type Policy Number Effective Date Expiration Date [facility] [id number] 2019 MEDICAID 00:00:00 Problems Condition Condition Condition Status Onset Resolution Last Treating Co mments Source Name Details Category Date Date Treatment Clinician Date Family Family Disease Active Univers history of history of 09-02 it y of breast breast 00:00: [place] cancer cancer 00 Medical Branch Mass[place] of [place] of Disease Active Overview: Univers both both 09-02 Mammogram ity of breasts breasts 00:00: and [place] [id number] breast Medical usg was Branch negative for abnormali ty. (see external records) Reflux Reflux Problem Active Common [facility] Seizure Seizure Diagnosis Active Commo n disorder disorder [facility] Seizures Seizures Problem Active Commo n [facility] Fibrocysti Fibrocysti Problem Active C ommon c disease c disease Spir it of right of right - [facility] breast breast [facility] Nicotine Nicotine Diagnosis Active Com mon dependence dependence Sp bonnie with with - [facility] current current St use [facility] Fibrocysti Fibrocysti Problem Active C ommon c disease c disease Spir it of left of left - [facility] breast breast [facility] Anxiety Anxiety Problem Active Common [facility] HTN HTN Problem Active Common (hypertens (hypertens Sp bonnie ion) ion) [facility] Allergic Allergic Diagnosis Active Com mon rhinitis, rhinitis, Spir it unspecifie unspecifie - [facility] d d [facility] seasonalit seasonalit Jazzy kes y, y, Medical unspecifie unspecifie Ce nter d trigger d trigger Decreased Decreased Problem Active Com mon hearing of hearing of Sp bonnie both ears both ears - [facility] Dilantin Dilantin Diagnosis Active Com mon level too level too Spir it low low - [facility] Medication Medication Diagnosis Active Common monitoring monitoring Sp bonnie encounter encounter - [facility] Allergies, Adverse Reactions, Alerts Allergy Allergy Status Severity Reaction(s) Onset Inactive Treating Comm ents Source Name Type Date Date Clinician Morphine Propensi Active Anaphylaxis U nivers ty to 7-30 ity of adverse 00:00: [address] MORPHINE DRUG Active Anaphylaxis Uni vers INGREDI 30 ity of 00:00: [address] Social History Social Habit Start Date Stop Date Quantity Comments Source History of tobacco 2016-04-27 Cigarette Smoker University of use 00:00:00 [facility] Sex Assigned At Universit y of [facility] Cigarettes smoked 2019-03-19 2019-03-19 Univers ity of current (pack per 00:00:00 00:00:00 [facility] ) - Reported [facility] Alcohol intake 2019-03-19 2019-03-19 University 00:00:00 00:00:00 [facility] Tobacco Comment 2016-09-02 2016-09-02 referances added Uni versity of 00:00:00 00:00:00 [facility] Smoking Status Start Date Stop Date Source Current some day smoker 2019-03-19 00:00:00 [facility] ersity of [facility] Medications Ordered Filled Start Stop Current Ordering Indication Dosage Frequency Signature Comments Components Source Medication Medication Date Date Medication? Clinician (SIG) Name Name ibuprofen No 800mg 800 mg, Uni vers (IBU) 03-19 Oral, ity of tablet 800 23:00: 22:35 ONCE, 1 Taz as mg 00 :00 dose, Tue Medical 03/19/19 at Branch 1700, ASHLI FENTanyl PF 2019- No 50ug 50 mcg, Un thony (SUBLIMAZE 03-19 Intramuscu it y of (PF)) 23:00: 22:36 lar, ONCE, [place] injection 00 :00 1 dose, Medical 50 mcg Tue Branch 03/19/19 at 1700, STAT cephALEXin 2020- No [id number] 500mg Take 1 Univers 500 mg 03-19 capsule by ity of capsule 00:00: 05:59 mouth 4 [place] 00 :00 (four) Medical times Branch daily for 7 days. naproxen 2020- No [id number] 500mg Take 1 Univers 500 mg 03-19 tablet by ity of tablet 00:00: 05:59 mouth 2 [place] 00 :00 (two) Medical times Branch daily with meals for 7 days. Gadiel Ramesh 2018-02 Yes Na Clemente 1 tablet Co mmon 2-17 Spirit 00:00: - [facility] 00 [facility] cyclobenzap Yes 10mg Take 1 Univ ers rine 10 mg 3-13 tablet by ity of tablet 00:00: mouth 3 [place] 00 (three) Medical times Branch daily. meloxicam Yes 7.5mg Take 1 Unive rs (MOBIC) 7.5 3-13 tablet by ity of mg tablet 00:00: mouth [place] 00 daily. Medical Branch cyclobenzap Yes 10mg Take 1 Univ ers rine 10 mg 3-13 tablet by ity of tablet 00:00: mouth 3 [place] 00 (three) Medical times Branch daily. meloxicam Yes 7.5mg Take 1 Unive rs (MOBIC) 7.5 3-13 tablet by ity of mg tablet 00:00: mouth [place] 00 daily. Medical Branch Flonase Flonase Yes Na Clemente 2 spray in Common each Spirit nostril [facility] EpiPen EpiPen Yes Na Clemente as Common 2-Misael 2-Misael directed [facility] Dilantin Dilantin Yes Na Clemente 2 capsules Common in am, 1 Spirit cap at [facility] noon and [address] at night [facility] Nicotine Nicotine Yes Na Clemente 1 patch to Common Step 2 Step 2 skin [facility] Vital Signs Vital Name Observation Time Observation Value Comments Source Systolic blood 2019-03-19 23:15:00 116 mm[Hg] Univer sity of pressure [place] [facility] Diastolic blood 2019-03-19 23:15:00 79 mm[Hg] Unive rsity of pressure [place] [facility] Heart rate 2019-03-19 23:15:00 90 /min Universi ty of [place] [facility] Respiratory rate 2019-03-19 23:15:00 14 /min Univ ersity of [place] [facility] Oxygen saturation in 2019-03-19 23:15:00 100 /min University of Arterial blood by [facility] nahid Pulse oximetry Branch Body temperature 2019-03-19 21:38:00 36.44 Mary Univ ersity of [place] [facility] Body height 2019-03-19 21:38:00 170.2 cm Universi ty [facility] [place] [facility] Body weight 2019-03-19 21:38:00 68.04 kg [facility] [place] [facility] BMI 2019-03-19 21:38:00 23.49 kg/m2 [facility]i [facility] [place] [facility] Systolic blood 2019-03-19 23:15:00 116 mm[Hg] Univer sity of pressure [place] [facility] Diastolic blood 2019-03-19 23:15:00 79 mm[Hg] Unive rsity of pressure [place] [facility] Heart rate 2019-03-19 23:15:00 90 /min Universi ty [facility] [place] [facility] Respiratory rate 2019-03-19 23:15:00 14 /min Univ ersity [facility] [place] [facility] Oxygen saturation in 2019-03-19 23:15:00 100 /min University of Arterial blood by [facility] nahid Pulse oximetry Branch Body temperature 2019-03-19 21:38:00 36.44 Mary Univ [facility] [place] [facility] Body height 2019-03-19 21:38:00 170.2 cm [facility] [place] [facility] Body weight 2019-03-19 21:38:00 68.04 kg [facility] [place] [facility] BMI 2019-03-19 21:38:00 23.49 kg/m2 [facility] [place] [facility] Procedures Procedure Date / Time Performed Performing Clinician [facility] e NOTICE OF PRIVACY 2019-03-19 21:17:54 Doctor Unassigned, No Univ ersity of [place] PRACTICES Name Medical Branch CONSENT/REFUSAL FOR 2019-03-19 21:17:33 Doctor Unassigned, No Un iversity of [place] DIAGNOSIS AND Name [facility] Branch TREATMENT Encounters Start End Encounter Admission Attending Care Care Encounter Source Date/Time Date/Time Type Type Clinicians Facility Department ID 2021-03-24 Outpatient [facility] [id number] Common 10:57:41 [id number] [facility] 2019-09-02 2019-09-02 Outpatient R ADUM, [facility] [id number] Univers 15:00:00 15:00:00 SARAH [id number] ity [facility] 2019-09-02 2019-09-02 Outpatient R ADUM, [facility] [id number] Univers 15:00[facility] 2019-03-19 Emergency [facility] [id number] 15:39:36 17:42:00 Aline Patton [id number] [place] [id number] [place] [id number] [facility] 2019-03-19 2019-03-19 Emergency [facility] [id number] Univers 15:39:36 17:42:00 Aline Patton [id number] ity of [place] [id number] [facility] [id number] [facility] 084 [facility] 2019-03-19 2019-03-19 Orders Doctor RAGLAND [id number] 00:00:00 00:00:00 Only UnassignedJAMIE [id number] [place] [facility] [id number] 2019-03-19 2019-03-19 Orders Doctor RAGLAND [id number] Univers 00:00:00 00:00:00 Only UnassignedJAMIE [id number] ity of [place] [facility] [id number] [facility] [id number] [facility] 009 Branch 2019-02-28 2019-02-28 Outpatient [facility] [id number] Common 16:34:00 16:34:[address] [employer] [address] [facility] 2019-02-12 2019-02-12 Outpatient Jammie Agudelot [id number] Common 16:20:00 16:20:00 t [facility] [address] [facility] 2018-12-25 2018-12-25 Emergency E [facility] [id number] H 05:20:00 05:20:00 2018-12-23 2018-12-23 Outpatient [facility] SUE [id number] [facility] 20:37:00 20:37:00 2018-12-23 2018-12-23 Emergency E [facility] MH [id number] [facility] 18:47:00 18:47:00 Results This patient has no known results.
[2021-07-10 16:48] LABS: Urine Blood Trace-lysed (Negative); Urine Glucose Negative (Negative); Urine Protein Trace (Negative)
[2021-07-10] MEDS ORDERED: CEFTRIAXONE 1000 MG/VIAL ONE (17:50)
[2021-07-10] MEDS ORDERED: FENTANYL CITR 100 MCG/2 ML ONE (17:50)
[2021-07-10] MEDS ORDERED: NA CHLORIDE 0.9% 1,000 ML ONE (17:51)
[2021-07-10] MEDS ORDERED: ONDANSETRON 4 MG/2 ML VIAL ONE (17:51)
[2021-07-10 17:54] LABS: Absolute Lymphocytes (CBC) 1.2 K/uL (0.7-4.9); Lymphocytes % 12.5 % (15.3-44.8); MPV 6.7 fL (7.6-11.3); RBC Red Blood Cell Count 4.03 M/uL (3.86-4.86)
[2021-07-10 18:09] LABS: Urine Bacteria LOADED /HPF (<20); Urine RBC <5 /HPF (NONE SEEN)
--- NOTE | 2021-07-10 18:13 | RAD REPORT ---
EXAM DESCRIPTION: CTStone Protocol - 07/10/2021 5:56 pm CLINICAL HISTORY: Flank pain, kidney stone suspected COMPARISON: Abdomen Pelvis W Contrast dated 09/24/2016; Stone Protocol dated 09/18/2016 TECHNIQUE: CT of the abdomen and pelvis was performed. All CT scans are performed using dose optimization technique as appropriate and may include automated exposure control or mA/KV adjustment according to patient size. FINDINGS: Lower chest: No acute abnormality. Small hiatal hernia. Liver: No acute abnormality or suspicious lesions. Biliary: Cholecystectomy Stomach: No significant focal abnormality. Duodenum: No significant focal abnormality. Pancreas: No significant abnormality. Spleen: No significant abnormality. Adrenal: No suspicious lesions. Kidney/ureter: No hydronephrosis. 2 mm left renal stone. Retroperitoneum: No retroperitoneal adenopathy. Vascular: No aneurysm. Bowel: No significant focal abnormality. Appendectomy. Peritoneum: No ascites or free air. Bladder: Grossly unremarkable. Reproductive: No adnexal masses. Bones: No acute fracture. Other: n/a IMPRESSION: No acute intra-abdominal or pelvic finding. Nonobstructive left nephrolithiasis. Appende ctomy.
[2021-07-10 18:15] LABS: Albumin 3.4 g/dL (3.4-5.0); Bilirubin Total 0.4 mg/dL (0.2-1.0); Potassium 3.2 mmol/L (3.5-5.1); Protein, Total 7.5 g/dL (6.4-8.2)
[2021-07-10] MEDS ORDERED: POTASSIUM 25 MEQ EFFERV TAB ONE (20:00)
[2021-07-10] MEDS ORDERED: HYDROMORPHONE HCL 1 MG/ML INJ ONE (20:00)
--- NOTE | 2021-07-10 20:16 | EDPHYS ---
Physician Documentation [facility] Name: Joana Casey Age: 35 yrs Sex: Female : 1985 Arrival Date: 07/10/2021 Time: 15:36 Bed 24 Private MD: ED Physician Bar Chong HPI: 07/10 17:00 This 35 yrs old Female presents to ER via Ambulatory with complaints of Fever, Back cp Pain, Pain With Urination. 17:00 The patient presents with pain that is acute, with no known mechanism of injury. cp 17:00 The symptoms are located in the mid back area. Onset: The symptoms/episode cp began/occurred gradually, and became worse today. 07/11 19:43 Associated signs and symptoms: Pertinent positives: abdominal pain, dysuria, fever, cp Pertinent negatives: constipation, headache, incontinence, numbness, vomiting, weakness. Severity of symptoms: in the emergency department the symptoms are unchanged, despite home interventions. Historical: - Allergies: 07/10 15:53 Eggs; jb4 15:53 Morphine (Respiratory distress); jb4 15:53 Tomato (Solanum Lycopersicum); jb4 - Home Meds: 15:53 Keppra 500 mg Oral tab 1 tab 2 times per day [Active]; nortriptyline Oral [Active]; jb4 - PMHx: 15:53 Anxiety; depressive disorder; Hypertension; Migraine; psych; Seizures; jb4 - PSHx: 15:53 Appendectomy; Cholecystectomy; jb4 - Immunization history:: Adult Immunizations up to date. - Social history:: Smoking status: Patient reports the use of cigarette tobacco products, Patient/guardian denies using alcohol, street drugs. ROS: 17:05 Constitutional: Negative for body aches, fever, poor PO intake. cp 17:05 Cardiovascular: Negative for chest pain. cp 17:05 Respiratory: Negative for cough, shortness of breath, wheezing. 17:05 Abdomen/GI: Positive for abdominal pain, nausea, Negative for diarrhea, constipation. 17:05 Back: Positive for pain at rest, pain with movement, of the mid back area. 17:05 : Positive for burning with urination. 17:05 Neuro: Negative for altered mental status, headache, numbness, weakness. 17:05 All other systems are negative. Exam: 17:10 Constitutional: The patient appears in no acute distress, alert, awake, non-toxic, well cp developed, well nourished, uncomfortable. 17:10 Head/Face: Normocephalic, atraumatic. cp 17:10 Eyes: Periorbital structures: appear normal, Conjunctiva: normal, no exudate, no injection, Sclera: no appreciated abnormality, Lids and lashes: appear normal, bilaterally. 17:10 ENT: External ear(s): are unremarkable, Nose: is normal, Mouth: Lips: moist, Oral mucosa: moist, Posterior pharynx: Airway: no evidence of obstruction, patent. 17:10 Chest/axilla: Inspection: normal. 17:10 Cardiovascular: Rate: tachycardic, Rhythm: regular, Edema: is not appreciated, JVD: is not appreciated. 17:10 Respiratory: the patient does not display signs of respiratory distress, Respirations: normal, no use of accessory muscles, no retractions, labored breathing, is not present, Breath sounds: are clear throughout, no decreased breath sounds, no stridor, no wheezing. 17:10 Abdomen/GI: Inspection: abdomen appears normal, Bowel sounds: active, all quadrants, Palpation: soft, in all quadrants, moderate abdominal tenderness, in the right lower quadrant and left lower quadrant, rebound tenderness, is not appreciated, involuntary guarding, is not appreciated. 17:10 Back: CVA tenderness, that is moderate, is noted bilaterally. 17:10 Neuro: Orientation: to person, place \T\ time. Mentation: is normal, Motor: moves all fours, strength is normal, Sensation: is normal. Vital Signs: 15:51 BP 144 / 110; Pulse 108; Resp 16; Temp 98.9(O); Pulse Ox 100% on R/A; Weight 81.65 kg jb4 (R); Height 5 ft. 7 in. (170.18 cm) (R); Pain 10/10; 18:12 BP 123 / 88; Pulse 89; Resp 16; Pulse Ox 98% on R/A; iw 19:09 BP 121 / 89; Pulse 95; Resp 18; Pulse Ox 100% on R/A; Pain 9/10; tw5 19:43 BP 120 / 86; Pulse 89; Resp 16; Pulse Ox 100% on R/A; iw 20:44 Pain 3/10; tw5 20:46 BP 117 / 83; Pulse 98; Resp 18; Pulse Ox 100% on R/A; tw5 15:51 Body Mass Index 28.19 (81.65 kg, 170.18 cm) jb4 MDM: 16:38 Patient medically screened. cp 17:00 Differential diagnosis: Cholelithiasis chronic back pain, Pyelonephritis cp Ureterolithiasis. 20:15 Data reviewed: vital signs, nurses notes, lab test result(s), radiologic studies, CT cp scan. 20:15 Counseling: I had a detailed discussion with the patient and/or guardian regarding: the cp historical points, exam findings, and any diagnostic results supporting the discharge/admit diagnosis, lab results, radiology results, the need for outpatient follow up, a family practitioner, to return to the emergency department if symptoms worsen or persist or if there are any questions or concerns that arise at home. Response to treatment: the patient's symptoms have markedly improved after treatment, and as a result, I will discharge patient. 07/10 16:48 Order name: Urine Dipstick-Ancillary; Complete Time: 17:12 EDDC 07/10 17:15 Interpretation: Normal except: UBLD Trace-lysed; UPROT Trace; U NIT Positive; UESTR 2+. 07/10 16:49 Order name: Urine Dipstick-Ancillary EDDC 07/10 16:49 Order name: Urine --Ancillary (enter results) em1 07/10 17:17 Order name: CBC with Diff; Complete Time: 18:25 cp 07/10 18:25 Interpretation: Normal except: HGB 11.5; HCT 33.0; PLT 442; RDW 15.3; MPV 6.7; MICHAELLE% cp 77.5; LYM% 12.5. 07/10 17:17 Order name: CMP; Complete Time: 18:25 cp 07/10 18:26 Interpretation: Normal except: NA 135; K 3.2; GFR 84; AST 13; GLOB 4.1; A/G 0.8. cp 07/10 17:17 Order name: Lipase; Complete Time: 18:25 cp 07/10 17:17 Order name: CT Stone Protocol; Complete Time: 18:25 cp 07/10 17:17 Order name: Procalcitonin; Complete Time: 19:43 cp 07/10 19:43 Interpretation: Reviewed. cp 07/10 17:17 Order name: Lactate; Complete Time: 18:25 cp 07/10 17:17 Order name: Blood Culture Adult (2) cp 07/10 17:17 Order name: Urine Microscopic Only; Complete Time: 18:25 cp 07/10 19:43 Interpretation: Normal except: UWBC 10-20; UBACT LOADED. cp 07/10 18:12 Order name: Urine Culture EDMS 07/10 17:17 Order name: IV Saline Lock; Complete Time: 18:00 cp 07/10 17:17 Order name: Labs collected and sent; Complete Time: 18:00 cp 07/10 19:47 Order name: PO challenge; Complete Time: 20:44 cp Administered Medications: 17:49 Drug: Zofran (Ondansetron) 4 mg Route: IVP; Site: right antecubital; iw 20:44 Follow up: Response: No adverse reaction tw5 17:49 Drug: fentaNYL (PF) 25 mcg Route: IVP; Site: right antecubital; iw 18:15 Follow up: Response: No adverse reaction iw 18:14 Drug: NS 0.9% 1000 ml Route: IV; Rate: 1 bolus; Site: right antecubital; iw 20:44 Follow up: Response: No adverse reaction; IV Status: Completed infusion; IV Intake: tw5 1000ml 18:14 Drug: Rocephin - (cefTRIAXone) 1 grams Route: IVPB; Infused Over: 30 mins; Site: right iw antecubital; 20:44 Follow up: Response: No adverse reaction; IV Status: Completed infusion; IV Intake: 20rknk2 20:03 Drug: Dilaudid (HYDROmorphone) 1 mg Route: IVP; Site: right antecubital; tw5 20:44 Follow up: Pain 3/10 Adult; Response: No adverse reaction; Pain is decreased; RASS: tw5 Alert and Calm (0) 20:03 Drug: Potassium Effervescent Tablet 50 mEq Route: PO; tw5 20:44 Follow up: Response: No adverse reaction tw5 Disposition Summary: 07/10/21 20:15 Discharge Ordered Location: Home cp Problem: new cp Symptoms: have improved cp Condition: Stable cp Diagnosis - UTI/ Urinary tract infection, site not specified cp Followup: cp - With: Private Physician - When: 2 - 3 days - Reason: Recheck today's complaints Discharge Instructions: - Discharge Summary Sheet cp - Urinary Tract Infection, Adult cp Forms: - Medication Reconciliation Form cp - Thank You Letter cp - Antibiotic Education cp - Prescription Opioid Use cp Prescriptions: - Ibuprofen 800 mg Oral Tablet - take 1 tablet by ORAL route every 8 hours As needed take with food; 30 tablet; cp Refills: 0, Product Selection Permitted - Zofran 4 mg Oral Tablet - take 1 tablet by ORAL route every 12 hours As needed; 20 tablet; Refills: 0, cp Product Selection Permitted - Bactrim DS 800-160 mg Oral Tablet - take 1 tablet by ORAL route every 12 hours for 10 days; 20 tablet; Refills: 0, cp Product Selection Permitted Signatures: Dispatcher [employer] Akila Power RN RN Shaheen Grant PA PA cp Dakotah Obrien RN RN jb4 China [email or web address] Corrections: (The following items were deleted from the chart) 07/11 19:44 07/10 17:00 Onset: The symptoms/episode began/occurred today, cp cp
--- NOTE | 2021-07-10 20:16 | ER ---
Nurse's Notes [facility] Name: Joana Casey Age: 35 yrs Sex: Female : 1985 Arrival Date: 07/10/2021 Time: 15:36 Bed 24 Private MD: Diagnosis: UTI/ Urinary tract infection, site not specified Presentation: 07/10 15:51 Chief complaint: Patient states: I am having back pain. I have a fluttering sensation jb4 on my lower back and a ripping sensation on my spine. I am having decreased urine output that started today. Coronavirus screen: At this time, the client does not indicate any symptoms associated with coronavirus-19. Ebola Screen: No symptoms or risks identified at this time. Initial Sepsis Screen: Does the patient meet any 2 criteria? HR > 90 bpm. Yes Does the patient have a suspected source of infection? No. Patient's initial sepsis screen is negative. Risk Assessment: Do you want to hurt yourself or someone else? Patient reports no desire to harm self or others. Onset of symptoms was July 10, 2021. Transition of care: patient was not received from another setting of care. 15:51 Method Of Arrival: Ambulatory jb4 15:51 Acuity: ERICKA 3 jb4 Historical: - Allergies: 15:53 Eggs; jb4 15:53 Morphine (Respiratory distress); jb4 15:53 Tomato (Solanum Lycopersicum); jb4 - Home Meds: 15:53 Keppra 500 mg Oral tab 1 tab 2 times per day [Active]; nortriptyline Oral [Active]; jb4 - PMHx: 15:53 Anxiety; depressive disorder; Hypertension; Migraine; psych; Seizures; jb4 - PSHx: 15:53 Appendectomy; Cholecystectomy; jb4 - Immunization history:: Adult Immunizations up to date. - Social history:: Smoking status: Patient reports the use of cigarette tobacco products, Patient/guardian denies using alcohol, street drugs. Screenin:13 Abuse screen: Denies threats or abuse. Denies injuries from another. Nutritional iw screening: No deficits noted. Tuberculosis screening: No symptoms or risk factors identified. Fall Risk None identified. Assessment: 17:30 General: Appears uncomfortable, Behavior is calm, cooperative. Pain: Complains of pain iw in back. Neuro: Level of Consciousness is awake, alert, obeys commands, Oriented to person, place, time, situation, Moves all extremities. Cardiovascular: Patient's skin is warm and dry. Derm: Skin is intact, is healthy with good turgor. Musculoskeletal: Range of motion: intact in all extremities. 19:09 General: Appears uncomfortable, Behavior is calm, cooperative, appropriate for age, tw5 tearful. Reports "My lower back is killing me." Patient further states that she has been experiencing the lower back discomfort for the past 4 days with worsening symptoms. Pain: Complains of pain in low back area Pain currently is 9 out of 10 on a pain scale. Neuro: No deficits noted. Respiratory: No deficits noted. 20:46 Reassessment: Patient states feeling better. Patient states symptoms have improved. tw5 Vital Signs: 15:51 BP 144 / 110; Pulse 108; Resp 16; Temp 98.9(O); Pulse Ox 100% on R/A; Weight 81.65 kg jb4 (R); Height 5 ft. 7 in. (170.18 cm) (R); Pain 10/10; 18:12 BP 123 / 88; Pulse 89; Resp 16; Pulse Ox 98% on R/A; iw 19:09 BP 121 / 89; Pulse 95; Resp 18; Pulse Ox 100% on R/A; Pain 9/10; tw5 19:43 BP 120 / 86; Pulse 89; Resp 16; Pulse Ox 100% on R/A; iw 20:44 Pain 3/10; tw5 20:46 BP 117 / 83; Pulse 98; Resp 18; Pulse Ox 100% on R/A; tw5 15:51 Body Mass Index 28.19 (81.65 kg, 170.18 cm) jb4 ED Course: 15:36 Patient arrived in ED. am2 15:53 Triage completed. jb4 15:53 Arm band placed on right wrist. jb4 16:03 Shaheen Regalado PA is PHCP. cp 16:03 Bar Chong MD is Attending Physician. cp 16:38 Akila Ashton, IAN is Primary Nurse. iw 17:40 Initial lab(s) drawn, by me, sent to lab. Inserted saline lock: 20 gauge in right iw antecubital area, using aseptic technique. Blood collected. 17:57 CT Stone Protocol In Process Unspecified. EDMS 18:14 Urine Dipstick-Ancillary Sent. iw 19:07 Primary Nurse role handed off by Akila Ashton, RN tw5 19:07 China Salazar is Primary Nurse. tw5 19:09 Patient has correct armband on for positive identification. Placed in gown. Bed in low tw5 position. Call light in reach. Adult w/ patient. Pulse ox on. NIBP on. Notified ED physician of other Patient would like some pain medication she states" Fentanyl doesn't do anything for me.". Door closed. Noise minimized. Lights dimmed. Moved to private room. Warm blanket given. Verbal reassurance given. 20:46 No provider procedures requiring assistance completed. IV discontinued, intact, tw5 bleeding controlled, No redness/swelling at site. Pressure dressing applied. Administered Medications: 17:49 Drug: Zofran (Ondansetron) 4 mg Route: IVP; Site: right antecubital; iw 20:44 Follow up: Response: No adverse reaction tw5 17:49 Drug: fentaNYL (PF) 25 mcg Route: IVP; Site: right antecubital; iw 18:15 Follow up: Response: No adverse reaction iw 18:14 Drug: NS 0.9% 1000 ml Route: IV; Rate: 1 bolus; Site: right antecubital; iw 20:44 Follow up: Response: No adverse reaction; IV Status: Completed infusion; IV Intake: tw5 1000ml 18:14 Drug: Rocephin - (cefTRIAXone) 1 grams Route: IVPB; Infused Over: 30 mins; Site: right iw antecubital; 20:44 Follow up: Response: No adverse reaction; IV Status: Completed infusion; IV Intake: 42pmid9 20:03 Drug: Dilaudid (HYDROmorphone) 1 mg Route: IVP; Site: right antecubital; tw5 20:44 Follow up: Pain 3/10 Adult; Response: No adverse reaction; Pain is decreased; RASS: tw5 Alert and Calm (0) 20:03 Drug: Potassium Effervescent Tablet 50 mEq Route: PO; tw5 20:44 Follow up: Response: No adverse reaction tw5 Medication: 20:46 VIS not applicable for this client. tw5 Intake: 20:44 IV: 1000ml; Total: 1000ml. tw5 20:44 IV: 50ml; Total: 1050ml. tw5 Outcome: 20:15 Discharge ordered by . cp 20:46 Discharged to home ambulatory, with family. tw5 20:46 Condition: improved 20:46 Discharge instructions given to patient, Instructed on discharge instructions, follow up and referral plans. medication usage, Demonstrated understanding of instructions, follow-up care, medications, Prescriptions given X 3. 20:48 Patient left the ED. tw5 Signatures: Dispatcher [employer] EDAkila Morales RN RN Shaheen Grant PA PA cp Bryson, James, RN RN jb4 Sandra Cowan Tiffany tw5
[2021-07-10 23:19] VITALS: TEMP 98.9
[2021-07-10 23:23] VITALS: O2SAT 100
[2021-07-10 23:30] VITALS: BP 117/83
== END 2021-07-10 20:48 | disposition home or self-care (01) ==
LOC: ER 15:30
DX: N39.0 Urinary tract infection, site not specified (principal); I10 Essential (primary) hypertension; F41.9 Anxiety disorder, unspecified; F32.A Depression, unspecified; Z72.0 Tobacco use; Z88.5 Allergy status to narcotic agent; Z91.012 Allergy to eggs; Z91.018 Allergy to other foods
CPT/HCPCS: 96365; 87040 ×2; 87088; 85025; 87086; 36415; 81025; 83605; 87077; 87186; 83690; 80053; 84145; 76377; 74176; 96375; 99284; 96366; J3010; J1170; J7030; J2405; 81003; 81015

== ENCOUNTER 2024-10-04 03:36 | Emergency (ER) | payer OTHER, SELFPAY ==
--- OUTSIDE RECORDS SUMMARY | 2024-10-04 03:40 | XMS REPORT | Continuity of Care Document ---
Author Name Unknown Address [address] [facility] [address] [place] [address] [facility] [place] Address [address] [facility] [address] [place] [address] Care Team Providers Care Felling Bucking Supervisor Name Role Phone Chantell Clemente Attending Clinician Unavailable SAMY LIEBERMAN Attending Clinician Unavailab KI Delgado Attending Clinician Unavailable ORQUIDEA CHAPIN Attending Clinician Unasusy ESTRELLA MD Attending Clinician Unavailab SARAH Yan Attending Clinician Unavailable Aline Braden Attending Clinician Doctor Unassigned, Waves Attending Clinician U navailable Payers Payer Name Policy Type Policy Number Effective Date Expirati on Date Source [employer] MP [facility] O OTR [employer] 94 [place] 9 [id number] 2023 00:00:00 [employer] [facility] 2 [id number] 2022 00:00:00 [facility] MEDICAID [id number] 2019 00:00:00 Problems Condition Name Condition Details Condition Category Status Onset Date Resolution Date Last Treatment Date Treating Clinician Comments Source LEG PAIN LEG PAIN Active 12/25/2018 [facility] Diagnosis Active 2018-02 00:00: 00 2018-12-25 07:52:00 Mak Crook [facility] Active 12/23/2018 [facility] Diagnosis Active 2018-02 00:00: 00 2019-01-04 10:21:00 Mak LIEBERMAN ZAY LIEBERMAN BILLING Active 12/23/2018 [facility] Diagnosis Active 2018-02 00:00: 00 2019-01-07 10:27:00 Mak Crook Family history of breast cancer Family history of breast cancer Disease Active 09-02 00:00: 00 [facility] Masses of both breasts Masses of both breasts Disease Active 09-02 00:00: 00 Overview: Mammogram and breast usg was negative for abnormali ty. (see external records) [facility] Reflux Reflux Problem Active [facility] Seizure disorder Seizure disorder Diagnosis Active [facility] Seizures Seizures Problem Active Commo n [facility] Fibrocysti c disease of right breast Fibrocysti c disease of right breast Problem Active [facility] Nicotine dependence with current use Nicotine dependence with current use Diagnosis Active [facility] Fibrocysti c disease of left breast Fibrocysti c disease of left breast Problem Active [facility] Anxiety Anxiety Problem Active [facility] HTN (hypertens ion) HTN (hypertens ion) Problem Active [facility] Allergic rhinitis, unspecifie d seasonalit y, unspecifie d trigger Allergic rhinitis, unspecifie d seasonalit y, unspecifie d trigger Diagnosis Active [facility] Decreased hearing of both ears Decreased hearing of both ears Problem Active [facility] Dilantin level too low Dilantin level too low Diagnosis Active [facility] Medication monitoring encounter Medication monitoring encounter Diagnosis Active [facility] History of Past Illness Condition Name Condition Details Condition Category Status Onset Date Resolution Date Last Treatment Date Treating Clinician Comments Source Pain in right knee Pain in right knee 9 12/27/2018 [facility] Problem 2018-02 17:00: 00 2018-12-27 21:56:50 2018-12-27 21:56:50 Memmaki Crook Pain in right wrist Pain in right wrist 12/23/2018 12/25/2018 [facility] Problem 2018- 0- 17:00: 00 2018-12-25 21:50:06 2018-12-25 21:50:06 Mak Crook Encounter for examinatio n and observatio n following other accident Encounter for examinatio n and observatio n following other accident 12/23/2018 12/25/2018 [facility] Problem 2018- 0 17:00: 00 2018-12-25 21:50:06 2018-12-25 21:50:06 Memoria blas [facility] Allergies, Adverse Reactions, Alerts Allergy Name Allergy Type Status Severity Reaction(s) Onset Date Inactive Date Treating Clinician Comments Source Morphine Sulfate Drug Allergy Active Anaphylaxis 11-16 00:00: 00 Nano White - Externa l Morphine Propensi ty to adverse reaction s Active Anaphylaxis 09-25 00:00: 00 [facility] MORPHINE DRUG INGREDI Active Anaphylaxis 09-25 00:00: 00 [facility] morphine morphine Active Memoria l [facility]ma[facility] Food Eggs Food Eggs Active [facility]oria [facility] Social History Social Habit Start Date Stop Date Quantity Comments Source History of tobacco use Smokes tobacco daily Nano White - External Sexual orientation K redd White - External History of Social function 2022-11-16 00:00:00 2022-11-16 00:00:00 Nano White - External Cigarettes smoked current (pack per day) - Reported 2019-03-19 00:00:00 2019-03-19 00:00:00 [facility] Alcohol intake 2019-03-19 00:00:00 2019-03-19 00:00:00 [facility] Tobacco Comment 2016-09-02 00:00:00 2016-09-02 00:00:00 referances added [facility] Sex Assigned At 1985 00:00:00 1985 00:00:00 Nano White - External Smoking Status Start Date Stop Date Source Smokes tobacco daily 2022-11-16 00:00:00 Nano White - External Current some day smoker 2019-03-19 00:00:00 [facility] Social History Kary bella Medications Ordered Medication Name Filled Medication Name Start Date Stop Date Current Medication? Ordering Clinician Indication Dosage Frequency Signature (SIG) Comments Components Source Triamcinolo ne Acetonide 0.1 % apply externally Cream 11-16 00:00: 00 12-15 04:59 :00 No [id number] Use twice a day to affected area. Nano Alegriaa l ibuprofen (IBU) tablet 800 mg 03-19 23:00: 00 03-19 22:35 :00 No 800mg 800 mg, Oral, ONCE, 1 dose, 03/19/19 at 1700, ASHLI [facility] FENTanyl PF (SUBLIMAZE (PF)) injection 50 mcg 03-19 23:00: 00 03-19 22:36 :00 No 50ug 50 mcg, Intramuscu lar, ONCE, 1 dose, Mon03/19/19 at 1700, STAT [facility] cephALEXin 500 mg capsule 03-19 00:00: 00 03-27 05:59 :00 No [id number] 500mg Take 1 capsule by mouth 4 (four) times daily for 7 days. [facility] naproxen 500 mg tablet 03-19 00:00: 00 03-27 05:59 :00 No [id number] 500mg Take 1 tablet by mouth 2 (two) times daily with meals for 7 days. [facility] Keppra Keppra 2018-02 00:00: 00 Yes Na Clemente 1 tablet [facility] Sulfamethox azole 800 MG / Trimethopri m 160 MG Oral Tablet [Bactrim] 2018-02 17:55: 00 Yes 1 tab, PO, BID, X 7 day, # 14 tab, 0 Refill(s) Mak Crook Fentanyl 2018-02 15:15: 00 No 50 microgram, Route: IVP, ONCE, Dosing Weight 77.273, kg, Priority: STAT, Start date: 12/25/18 10:15:00 CDT, Stop date: 12/25/18 10:15:00 CDT Mak Crook Ketorolac 2018-02 15:15: 00 No 30 mg, Route: IVP, Drug form: INJ, ONCE, Dosing Weight 77.273, kg, Priority: STAT, Start date: 12/25/18 10:15:00 CDT, Stop date: 12/25/18 10:15:00 CDT Mak Blackmonann Epinephrine 0.01 MG/ML / Lidocaine Hydrochlori de 10 MG/ML Injectable Solution 2018-02 14:10: 00 No Route: INJ, Dosing Weight 77.273, kg, ONCE, Start date: 12/25/18 9:10:00 CDT, Stop date: 12/25/18 9:10:00 CDT Mak odonnell Armaan Acetaminoph en 325 MG / Hydrocodone Bitartrate 5 MG Oral Tablet [[place] 5/325] 2018-02 12:22: 00 No 1 tab, Route: PO, Dosing Weight 77.273, kg, ONCE, STAT, Start date: 12/25/18 7:22:00 CDT, Stop date: 12/25/18 7:22:00 CDT Mak Blackmonann Zofran ODT 2018-02 02:32: 00 No 4 mg, Route: PO, Drug form: TABDIS, ONCE, Dosing Weight 77.273, kg, Priority: STAT, Start date: 12/23/18 21:32:00 CDT, Stop date: 12/23/18 21:32:00 CDT Ramakrishnamaki odonnell Armaan Acetaminoph en 325 MG / Hydrocodone Bitartrate 5 MG Oral Tablet [[place] 5/325] 2018-02 02:12: 00 No Notes: (Same as: [place] 325/5) Do not exceed 4gm/day of acetaminop hen. Mak Crook Iohexol 2018-02 00:26: 00 No 100 mL, Route: IVP, Drug Form: SOLN, Dosing Weight 77.273, kg, ONCALL, STAT, Start date: 12/23/18 19:26:00 CDT, Duration: 1 doses or times, Dose = 2.2ml/kg, Max dose = 100ml -- "To be infused by Radiology Staff ONLY" Mak Crook Fentanyl 2018-02 00:15: 00 No 25 microgram, Route: IVP, ONCE, Dosing Weight 77.273, kg, Priority: STAT, Start date: 12/23/18 19:15:00 CDT, Stop date: 12/23/18 19:15:00 CDT Mak Crook Saline Flush 0.9% 2018-02 00:12: 00 No Notes: (Same as: BD Posiflush) Mak Blackmonann cyclobenzap rine 10 mg tablet 05-09 00:00: 00 Yes 10mg Take 1 tablet by mouth 3 (three) times daily. [facility] meloxicam (MOBIC) 7.5 mg tablet 05-09 00:00: 00 Yes 7.5mg Take 1 tablet by mouth daily. [facility] Flonase Flonase Yes Na Clemente 2 spray in each nostril [facility] EpiPen 2-Misael EpiPen 2-Misael Yes Na Clemente as directed [facility] Dilantin Dilantin Yes Na Clemente 2 caps ules in am, 1 cap at noon and [address] [facility] Nicotine Step 2 Nicotine Step 2 Yes Na Clemente [address] [facility] Vital Signs Vital Name Observation Time Observation Value Comments S ource Systolic blood pressure 2022-11-16 16:47:00 128 mm[Hg] Nano Tripathi ld - External Diastolic blood pressure 2022-11-16 16:47:00 78 mm[Hg] Nano Tripathi ld - External Heart rate 2022-11-16 16:47:00 98 /min Jt White - External Body temperature 2022-11-16 16:47:00 36.61 Mary Nano White - External Respiratory rate 2022-11-16 16:47:00 20 /min Nano White - External Body height 2022-11-16 16:47:00 170.2 cm Madina White - External Body weight 2022-11-16 16:47:00 75.07 kg Madina ey Seybold - External BMI 2022-11-16 16:47:00 25.92 kg/m2 Madinacarmela talbert Seybold - External Systolic blood pressure 2019-03-19 23:15:00 116 mm[Hg] [facility] Diastolic blood pressure 2019-03-19 23:15:00 79 mm[Hg] [facility] Heart rate 2019-03-19 23:15:00 90 /min Un[facility] Respiratory rate 2019-03-19 23:15:00 14 /min [facility] Oxygen saturation in Arterial blood by Pulse oximetry 2019-03-19 23:15:00 100 /min [facility] Body temperature 2019-03-19 21:38:00 36.44 Mary [facility] Body height 2019-03-19 21:38:00 170.2 cm [facility] Body weight 2019-03-19 21:38:00 68.04 kg [facility] BMI 2019-03-19 21:38:00 23.49 kg/m2 [facility] Systolic blood pressure 2019-03-19 23:15:00 116 mm[Hg] [facility] Diastolic blood pressure 2019-03-19 23:15:00 79 mm[Hg] [facility] Heart rate 2019-03-19 23:15:00 90 /[facility] Respiratory rate 2019-03-19 23:15:00 14 /min [facility] Oxygen saturation in Arterial blood by Pulse oximetry 2019-03-19 23:15:00 100 /min [facility] Body temperature 2019-03-19 21:38:00 36.44 Mary [facility] Body height 2019-03-19 21:38:00 170.2 cm [facility] Body weight 2019-03-19 21:38:00 68.04 kg [facility] BMI 2019-03-19 21:38:00 23.49 kg/m2 [facility] Respitory Rate 2018-12-25 18:45:00 [facility] Sy[facility]mm Hg) 2018-12-25 18:45:00 [facility] Diastolic (mm Hg) 2018-12-25 18:45:00 [facility] Systolic (mm Hg) 2018-12-25 17:00:00 [facility] Diastolic (mm Hg) 2018-12-25 17:00:00 [facility] Respitory Rate 2018-12-25 17:00:00 [facility] Systolic (mm Hg) 2018-12-25 16:08:00 [facility] Diastolic (mm Hg) 2018-12-25 16:08:00 [facility] Respitory Rate 2018-12-25 16:08:00 [facility] Heart Rate 2018-12-25 16:08:00 [facility] Temperature Oral (F) 2018-12-25 16:08:00 97.9 F [facility] Heart Rate 2018-12-25 10:23:00 [facility] Temperature Oral (F) 2018-12-25 10:23:00 97.5 F [facility] Temperature Oral (F) 2018-12-24 03:23:00 98.2 F [facility] Respitory Rate 2018-12-24 03:23:00 [facility] Systolic (mm Hg) 2018-12-24 03:23:00 [facility] Diastolic (mm Hg) 2018-12-24 03:23:00 [facility] Respitory Rate 2018-12-24 01:11:00 [facility] Systolic (mm Hg) 2018-12-24 01:11:00 [facility] Diastolic (mm Hg) 2018-12-24 01:11:00 [facility] Diastolic (mm Hg) 2018-12-24 00:56:00 [facility] Respitory Rate 2018-12-24 00:56:00 [facility] Systolic (mm Hg) 2018-12-24 00:56:00 [facility] Heart Rate 2018-12-24 00:02:00 [facility] Temperature Oral (F) 2018-12-24 00:02:00 98.1 F [facility] Weight 2018-12-24 00:02:00 [facility] Procedures Procedure Date / Time Performed Performing Clinicia n Source NOTICE OF PRIVACY PRACTICES 2019-03-19 21:17:54 Doctor Unassigned, Waves [facility] CONSENT/REFUSAL FOR DIAGNOSIS AND TREATMENT 2019-03-19 21:17:33 Doctor Unassigned, Waves [facility] Encounters Start Date/Time End Date/Time Encounter Type Admission Type Attending [facility] Care Department Encounter ID Source 2021-03-24 10:57:41 Outpatient Chantell Clemente [facility] [id number] [facility] 2023-07-04 11:30:00 2023-07-04 11:30:00 Outpatient REBECCA LIEBERMANTHIA NANO ECHEVERRIA [id number] [facility] 2023-04-12 00:00:00 2023-04-12 00:00:00 Outpatient MIO SAMY ECHEVERRIA [id number] [facility] 2023-03-13 00:00:00 2023-03-13 00:00:00 Outpatient KI RODNEY [id number] [facility] 2023-03-08 10:15:00 2023-03-08 10:15:00 Outpatient ORQUIDEA CHAPIN [id number] [facility] 2023-03-07 13:30:00 2023-03-07 13:30:00 Outpatient REBECCA LIEBERMANTHIA NANO ECHEVERRIA [id number] [facility] 2023-02-09 00:00:00 2023-02-09 00:00:00 Outpatient REBECCA LIEBERMANKWAKU ECHEVERRIA [id number] [facility] 2023-01-26 14:30:00 2023-01-26 14:30:00 Outpatient NANO ECHEVERRIA [id number] [facility] 2023-01-26 14:30:00 2023-01-26 14:30:00 Outpatient NANO ECHEVERRIA [id number] [facility] 2023-01-26 14:00:00 2023-01-26 14:00:00 Outpatient NANO ECHEVERRIA [id number] [facility] 2023-01-26 13:20:00 2023-01-26 13:20:00 Outpatient NANO ECHEVERRIA [id number] [facility] 2023-01-24 08:15:00 2023-01-24 08:15:00 Outpatient ORQUIDEA CHAPIN [id number] [facility] 2023-01-10 00:00:00 2023-01-10 00:00:00 Outpatient MD NANO LOYOLA [id number] [facility] 2023-01-10 00:00:00 2023-01-10 00:00:00 Outpatient SAMY LIEBERMAN NANO ECHEVERRIA [id number] [facility] 2022-12-16 00:00:00 2022-12-16 00:00:00 Outpatient SAMY LIEBERMAN NANO ECHEVERRIA [id number] [facility] 2022-11-16 11:30:00 2022-11-16 11:30:00 Outpatient SAMY LIEBERMAN NANO ECHEVERRIA [id number] [facility] 2019-09-02 15:00:00 2019-09-02 15:00:00 Outpatient Constanza G[facility]AR[facility] [id number] [facility] 2019-03-19 15:39:36 2019-03-19 17:42:00 Emergency Aline Hernandez [facility] [id number] [facility] 2019-03-19 15:39:36 2019-03-19 17:42:00 Emergency Aline Hernandez [facility] [id number] 2019-03-19 00:00:00 2019-03-19 00:00:00 Orders Only Doctor Unassigned, Waves [facility] [id number] [facility] 2019-03-19 00:00:00 2019-03-19 00:00:00 Orders Only Doctor Unassigned, Waves [facility] [id number] 2019-02-28 16:34:00 2019-02-28 16:34:00 Outpatient [facility] [id number] [facility] 2019-02-12 16:20:00 2019-02-12 16:20:00 Outpatient [facility] [id number] [facility] 2018-12-25 05:20:00 2018-12-25 05:20:00 Emergency E [facility] [id number] [facility] 2018-12-23 20:37:00 2018-12-23 20:37:00 Outpatient [facility] SUE [id number] [facility] 2018-12-23 18:47:00 2018-12-23 18:47:00 Emergency E [facility] [id number] [facility] Results Test Description Test Time Test Comments Results Result Co mments Source [id number] 11:16:00* Test Item Value Reference Range Interpretation Comme [facility] AGAP (test code = AGAP) 13.1 10.0-20.0 [id number] 11:16:00* Test Item Value Reference Range Interpretation Comme [facility] WBC (test code = WBC) 7.8 3.7-10.4 [id number] 11:16:00* Test Item Value Reference Range Interpretation Comme nts C-REACTIVE PROTEIN (test cod e = C-REACTIVE PROTEIN) 16.1 [id number] 00:54:00* Test Item Value Reference Range Interpretation Comme nts WBC (test code = WBC) 6.9 3.7-10.4 [facility] [id number] 00:54:00* Test Item Value Reference Range Interpretation Comme nts CDC HIV 4th GEN (test code = CDC HIV 4th GEN) Negative *NA*(12/23/18 7:54 PM) [facility] [id number] 00:17:00* Test Item Value Reference Range Interpretation Comme nts eGFR (test code = eGFR) [address] [place] [id number] 00:17:00* Test Item Value Reference Range Interpretation Comme nts S Preg (test code = S Preg) Negative *NA*(12/23/18 7:17 PM) [id number] 00:17:00* Test Item Value Reference Range Interpretation Comme nts Ethanol Lvl (test code = Ethanol Lvl) no gt [id number] 00:17:00* Test Item Value Reference Range Interpretation Comme nts ABO/Rh (test code = ABO/Rh) O NEG [facility] [id number] 00:17:00* Test Item Value Reference Range Interpretation Comme nts Lactic Acid Lvl (test code = Lactic Acid Lvl) 0.6 0.5-2.2 [facility] Notes Date/Time Note Provider Source 2018-12-25 05:46:00 EXAM: CT RIGHT KNEE WITHOUT CONTRAST DATE: 12/25/2018 0556 hours INDICATION: - s/p nursing home, neg XR, increasing joint line pain with inability to bear weight COMPARISON: Same day right knee radiographs at 0551 hours. TECHNIQUE: Volumetric CT of the knee is acquired without contrast. Axial, coronal and sagittal images are provided. IV contrast: None. DLP: 119 mGy-cm UT SECTION: ER FINDINGS: Distal femur: Intact. Bone island noted in the medial femoral condyle. Patella: Intact. Small enthesophyte formation at the distal quadriceps tendon attachment site. Proximal tibia: Intact. Proximal fibula: Intact. Soft tissues: Mild soft tissue swelling at the infrapatellar knee. No subcutaneous emphysema or radiodense foreign bodies. Small joint effusion. IMPRESSION: 1. No acute fracture or malalignment. 2. Mild anterior knee soft tissue swelling. 3. Small joint effusion [facility] 2018-12-25 05:28:00 EXAM: XR RIGHT KNEE 3 VIEWS DATE: 12/25/2018 0551 hours INDICATION: - nursing home pain COMPARISON: Right knee radiographs on 12/23/2018. TECHNIQUE: 3 views of the knee UT SECTION: ER FINDINGS: No acute fracture or malalignment is identified. Minimal superior patellar spur is noted at the distal quadriceps tendon attachment site. Small suprapatellar knee joint effusion is present. Mild soft tissue swelling about the knee is identified. IMPRESSION: Small knee joint effusion and mild soft tissue swelling about the knee without underlying acute bony fracture or malalignment. [facility] 2018-12-23 19:54:00 EXAM: XR ANKLE 3 VIE WS DATE: 12/23/2018 19:54 CDT INDICATION: - pain s/p trauma COMPARISON: None TECHNIQUE: AP, oblique and lateral radiographs of the ankle Laterality: Right FINDINGS: No acute fracture or malalignment is identified. The ankle mortise is congruent. No soft tissue abnormality is identified. IMPRESSION: No acute abnormality. [facility] 2018-12-23 19:54:00 EXAM: XR KNEE 3 VIEW S DATE: 12/23/2018 19:54 CDT INDICATION: - pain s/p trauma COMPARISON: None TECHNIQUE: 3 views of the knee Laterality: Right FINDINGS: No acute fracture or malalignment is identified. There is no excessive joint fluid. No soft tissue abnormality is identified. IMPRESSION: No acute abnormality. [facility] 2018-12-23 19:54:00 EXAM: XR FOOT 3 VIEW S DATE: 12/23/2018 19:54 CDT INDICATION: - pain s/p trauma COMPARISON: None TECHNIQUE: AP, lateral and oblique radiographs of the foot Laterality: Right FINDINGS: No acute fracture or malalignment is identified. No soft tissue abnormality is identified. IMPRESSION: No acute abnormality. [facility] 2018-12-23 19:54:00 EXAM: RIGHT HIP 2 EWS DATE: 12/23/2018 19:54 CDT INDICATION: - pain s/p trauma COMPARISON: None TECHNIQUE: AP and frog-leg lateral views of the right hip. FINDINGS: No acute fracture or malalignment is identified. Hip joint spaces are preserved bilaterally. Contrast in the urinary bladder. No soft tissue abnormality is identified. IMPRESSION: No acute abnormality. [facility] 2018-12-23 19:54:00 EXAM: XR HUMERUS 2 V IEWS DATE: 12/23/2018 19:54 CDT INDICATION: - s/p trauma COMPARISON: None TECHNIQUE: AP and lateral radiographs of the humerus Laterality: Right FINDINGS: No acute fracture or malalignment is identified. No soft tissue abnormality is identified. IMPRESSION: No acute abnormality. [facility] 2018-12-23 19:54:00 EXAM: XR FOREARM 2 V IEWS DATE: 12/23/2018 19:54 CDT INDICATION: - pain s/p trauma COMPARISON: None TECHNIQUE: AP and lateral radiographs of the forearm Laterality: Right FINDINGS: No acute fracture or malalignment is identified. No soft tissue abnormality is identified. IMPRESSION: No acute abnormality. [facility] 2018-12-23 19:54:00 EXAM: XR SHOULDER 3 VIEWS DATE: 12/23/2018 19:54 CDT INDICATION: - R shoulder pain s/p trauma COMPARISON: None TECHNIQUE: 3 views of the shoulder Laterality: Right FINDINGS: No acute fracture or malalignment is identified. No soft tissue abnormality is identified. IMPRESSION: No acute abnormality. [facility] 2018-12-23 19:54:00 EXAM: XR ELBOW 3 VIE WS DATE: 12/23/2018 19:54 CDT INDICATION: - pain s/p trauma COMPARISON: None TECHNIQUE: AP, lateral and oblique radiographs of the elbow Laterality: Right FINDINGS: No acute fracture or malalignment is identified. There is no excessive joint fluid. No soft tissue abnormality is identified. IMPRESSION: No acute abnormality. [facility] 2018-12-23 19:54:00 EXAM: XR TIBIA 2 VIE WS DATE: 12/23/2018 19:54 CDT INDICATION: - pain s/p trauma COMPARISON: None TECHNIQUE: AP and lateral radiographs of the tibia Laterality: Right FINDINGS: No acute fracture or malalignment is identified. No soft tissue abnormality is identified. IMPRESSION: No acute abnormality. [facility] 2018-12-23 19:54:00 EXAM: XR FEMUR 2 VIE WS DATE: 12/23/2018 19:54 CDT INDICATION: - pain s/p trauma COMPARISON: None TECHNIQUE: AP and lateral radiographs of the femur Laterality: Right FINDINGS: No acute fracture or malalignment is identified. No soft tissue abnormality is identified. IMPRESSION: No acute abnormality. [facility] 2018-12-23 19:54:00 EXAM: RIGHT HAND 3 V IEWS EXAM: RIGHT WRIST 3 VIEWS DATE: 12/23/2018 19:54 CDT INDICATION: - pain s/p trauma COMPARISON: None TECHNIQUE: PA, lateral and oblique radiographs of the right hand and wrist. FINDINGS: Linear lucency through the volar aspect of the proximal fifth metacarpal shaft. No other bony abnormality identified. No joint space narrowing, osteophytes or cysts. Mild hypothenar soft tissue swelling. IMPRESSION: Linear lucency through the volar aspect of the proximal fifth metacarpal shaft, favored to represent a nutrient channel, however, recommend correlation for focal tenderness to exclude fracture. [facility] 2018-12-23 19:12:00 EXAM: CT CHEST WITH CONTRAST EXAM: CT ABDOMEN AND PELVIS WITH CONTRAST DATE: 12/23/2018 19:12 CDT INDICATION: - acute pain due to trauma COMPARISON: None TECHNIQUE: Volumetric CT of the chest, abdomen and pelvis is acquired following intravenous administration of contrast. Axial, coronal and sagittal images are provided. IV contrast: 100 mL Omnipaque 350 Oral contrast: None. DLP: 2207 mGy-cm UT SECTION: ER FINDINGS: Lines and tubes: None. Lower Neck: Supraclavicular soft tissues are unremarkable. Thoracic Aorta and Mediastinum: No mediastinal hematoma or thoracic aortic injury. Normal heart and pericardium. Lungs, Pleura, Diaphragm: No pulmonary contusions. The lungs are clear. No pleural effusion or pneumothorax. No diaphragmatic injury. Liver and biliary tree: Normal. No injury. No biliary abnormality. Gallbladder: Surgically absent. Pancreas: Normal. No injury. Spleen: Normal. No injury. Adrenals: Normal. No injury. Kidneys and ureters: Normal. No injury. Bladder: Normal. No injury. Reproductive organs: No injury. Gastrointestinal tract: Normal. No bowel injury. Peritoneum and retroperitoneum: No fluid collections or free air. Lymph nodes: Normal. Vasculature: No vascular injury. Spine/ Bones: No acute abnormality of the spine. No other bony injury. Soft tissues: Normal. IMPRESSION: No acute traumatic abnormality in the chest, abdomen, or pelvis [facility] er 2018-12-23 19:11:00 EXAM: CT BRAIN WITHOUT CONTRAST INDICATION: - acute pain due to trauma COMPARISON: None TECHNIQUE: Routine axial CT images of the brain were obtained. DISCUSSION: No intracranial hemorrhage or mass effect. No acute infarction. No hydrocephalus. Calvarium is intact. Paranasal sinuses are clear. IMPRESSION: No acute intracranial abnormality. [facility] 2018-12-23 19:11:00 EXAM: CT CERVICAL SP INE WITHOUT CONTRAST DATE: 12/23/2018 19:11 CDT INDICATION: - acute pain due to trauma COMPARISON: None TECHNIQUE: Volumetric CT of the cervical spine is acquired without contrast. Axial, coronal and sagittal images are provided. IV contrast: None. DLP: 527.2 mGy-cm UT SECTION: ER FINDINGS: The spine is imaged from the skull base to the level of T3. No acute fracture or malalignment is identified. No soft tissue abnormality is identified. IMPRESSION: No acute fracture or malalignment in the cervical spine. [facility] 2018-12-23 19:10:00 EXAM: XR PELVIS 1 EW EXAM: XR PELVIS 1 VIEW DATE: 12/23/2018 19:10 CDT INDICATION: - acute pain due to trauma COMPARISON: None. UT SECTION: ER TECHNIQUE: 2 Frontal pelvis images FINDINGS: Examination of the pelvis is somewhat limited secondary to patient rotation and overlying medical devices and trauma backboard artifact. Given this limitation, no acute fracture or malalignment identified. IMPRESSION: No acute fracture or malalignment. [facility] 2018-12-23 19:10:00 EXAM: XR CHEST 1 VIEW DATE: 12/23/2018 19:10 CDT INDICATION: - acute pain due to trauma COMPARISON: None. UT SECTION: ER TECHNIQUE: AP chest. FINDINGS: Examination is somewhat limited secondary to partial collimation of some of the chest as well as overlying trauma backboard, medical devices, and jewelry. Lines, tubes and hardware: None. Lungs and pleura: The lungs are clear. The costophrenic sulci are sharp without effusion. Heart and mediastinum: The heart size is normal for technique. The mediastinal contours are normal. Bones, soft tissues: No acute abnormality. IMPRESSION: 1. No acute cardiopulmonary abnormality. [facility]
[2024-10-04] MEDS ORDERED: FENTANYL CITR 100 MCG/2 ML ONE ×2 (04:15→05:17)
[2024-10-04] MEDS ORDERED: ONDANSETRON 4 MG/2 ML VIAL ONE (04:15)
[2024-10-04] MEDS ORDERED: NA CHLORIDE 0.9% 1,000 ML ONE (04:16)
[2024-10-04 04:28] LABS: Absolute Lymphocytes (CBC) 1.3 K/uL (0.7-4.9); Hematocrit 35.4 % (36.0-45.0); Hemoglobin 12.2 g/dL (12.0-15.0); MCH 29.0 pg (27.0-35.0); MCHC 34.4 g/dL (32.0-36.0); MCV 84.3 fL (80-100); MPV 7.4 fL (7.6-11.3); Nucleated RBC Absolute Count 0.0 (0-0); Nucleated Red Blood Cells % 0.0 % (0-0); RBC Red Blood Cell Count 4.20 M/uL (3.86-4.86); White Blood Count 7.70 thou/uL (4.3-10.9)
[2024-10-04 04:48] LABS: ALT/SGPT 22.0 U/L (13-56); AST/SGOT 14.0 U/L (15-37); Albumin 3.6 g/dL (3.4-5.0); Albumin/Globulin Ratio 1.1 (1.1-1.8); Alkaline Phosphatase 71.0 U/L (45-117); Anion Gap 10.0 mEq/L (5.0-15.0); BUN Blood Urea Nitrogen 10.0 mg/dL (7-18); Globulin 3.2 g/dL (2.3-3.5); Glucose Level 139.0 mg/dL (74-106); Lipase 16.0 U/L (13-75); Potassium 3.0 mEq/L (3.5-5.1)
[2024-10-04 04:59] LABS: Sqamous Epithelial <5 /HPF (None Seen); Urine Culture Reflex Order REFLEXED; Urine Microscopic Reflex YN ORDER UMIC
[2024-10-04] MEDS ORDERED: KETOROLAC 30 MG/ML INJ ONE (05:16)
[2024-10-04] MEDS ORDERED: CEFTRIAXONE 1000 MG/VIAL ONE (05:31)
--- NOTE | 2024-10-04 06:31 | ER ---
Nurse's Notes [facility] Name: Joana Casey Age: 39 yrs Sex: Female : 1985 Arrival Date: 10/04/2024 Time: 03:36 Bed 8 Private MD: Diagnosis: UTI/ Urinary tract infection, site not specified;Acute cystitis with a right flank pain Presentation: 10/04 04:04 Chief complaint: Patient states: right sided abdominal pain that radiates to back for 3 vc1 days. Coronavirus screen: Client denies travel out of the [place] in the last 14 days. At this time, the client does not indicate any symptoms associated with coronavirus-19. Ebola Screen: Patient negative for fever greater than or equal to 101.5 degrees Fahrenheit, and additional compatible Ebola Virus Disease symptoms Patient denies exposure to infectious person. Patient denies travel to an Ebola-affected area in the 21 days before illness onset. No symptoms or risks identified at this time. Initial Sepsis Screen: Does the patient meet any 2 criteria? No. Patient's initial sepsis screen is negative. Does the patient have a suspected source of infection? No. Patient's initial sepsis screen is negative. Risk Assessment: Do you want to hurt yourself or someone else? Patient reports no desire to harm self or others. Onset of symptoms was October 01, 2024. 04:04 Method Of Arrival: Ambulatory vc1 04:04 Acuity: ERICKA 3 vc1 Triage Assessment: 04:08 General: Appears in no apparent distress. uncomfortable, well groomed, well developed, vc1 Behavior is cooperative, crying. Pain: Complains of pain in right lower quadrant Pain radiates to right low back, posterior aspect of right lateral abdomen and anterior aspect of right lateral abdomen Pain currently is 8 out of 10 on a pain scale. Quality of pain is described as sharp, Pain began 2-3 days ago. Is continuous, Noted to be crying, grimacing, Also complains of nausea. EENT: No deficits noted. No signs and/or symptoms were reported regarding the EENT system. Neuro: Level of Consciousness is awake, alert, obeys commands, Oriented to person, place, time, situation, Appropriate for age. Cardiovascular: Capillary refill < 3 seconds Patient's skin is warm and dry. Respiratory: Airway is patent Respiratory effort is even, unlabored, Respiratory pattern is regular, symmetrical. GI: No deficits noted. No signs and/or symptoms were reported involving the gastrointestinal system. : No deficits noted. No signs and/or symptoms were reported regarding the genitourinary system. Derm: Skin is intact, is healthy with good turgor, Skin is dry, Skin is normal, Skin temperature is warm. Musculoskeletal: Circulation, motion, and sensation intact. Range of motion: intact in all extremities. 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 - Infectious Disease History:: Denies. - Social history:: Smoking status: Reported history of juuling and/or vaping. - Family history:: not pertinent. Screenin:07 [facility] ED Fall Risk Assessment (Adult) History of falling in the last 3 months, vc1 including since admission No falls in past 3 months (0 pts) Confusion or Disorientation No (0 pts) Intoxicated or Sedated No (0 pts) Impaired Gait No (0 pts) Mobility Assist Device Used No (0 pt) Altered Elimination No (0 pt) Score/Fall Risk Level 0 - 2 = Low Risk Oriented to surroundings, Maintained a safe environment, Educated pt \T\ family on fall prevention, incl call for assistance when getting out of bed, Assessed \T\ reinforced patient's understanding of fall precautions, Hourly rounding (assess needs \T\ fall precautionary measures) done. Abuse screen: Denies threats or abuse. Nutritional screening: No deficits noted. Tuberculosis screening: No symptoms or risk factors identified. Assessment: 04:22 General: Appears in no apparent distress. uncomfortable, Behavior is calm, cooperative, cp4 appropriate for age. Pain: Complains of pain in abdomen and right lower quadrant Pain does not radiate. Pain currently is 8 out of 10 on a pain scale. Neuro: Level of Consciousness is awake, alert, obeys commands, Oriented to person, place, time, situation. Cardiovascular: Patient's skin is warm and dry. Respiratory: Airway is patent Respiratory effort is even, unlabored. GI: Reports lower abdominal pain, nausea. GI: Abdomen is round non-distended, Bowel sounds present X 4 quads. Abdomen is tender to palpation in right lower quadrant. : No signs and/or symptoms were reported regarding the genitourinary system. EENT: No signs and/or symptoms were reported regarding the EENT system. Derm: No signs and/or symptoms reported regarding the dermatologic system. Musculoskeletal: No signs and/or symptoms reported regarding the musculoskeletal system. Vital Signs: 04:04 BP 136 / 96; Pulse 92; Resp 18; Temp 98.6; Pulse Ox 100% ; Weight 77.11 kg; Height 5 vc1 ft. 7 in. ; Pain 8/10; 06:08 BP 118 / 82; Pulse 84; Resp 18; Pulse Ox 99% ; cp4 06:59 BP 119 / 88; Pulse 90; Resp 18; Pulse Ox 100% ; cp4 04:04 Body Mass Index 26.63 (77.11 kg, 170.18 cm) vc1 04:04 Pain Scale: Adult vc1 Montrose Coma Score: 10/05 01:06 Eye Response: spontaneous(4). Motor Response: obeys commands(6). Verbal Response: sp4 oriented(5). Total: 15. ED Course: 10/04 03:41 Patient arrived in ED. gm2 03:49 Jacquelyn Moses RN is Primary Nurse. [id number] 04:00 Brando Rosado MD is Attending Physician. sp4 04:06 Triage completed. vc1 04:06 Arm band placed on right wrist. vc1 04:07 Patient has correct armband on for positive identification. Bed in low position. Call vc1 light in reach. Provided Education on: Plan of care. Pulse ox on. NIBP on. 04:22 No provider procedures requiring assistance completed. Inserted saline lock: 20 gauge cp4 in right antecubital area, using aseptic technique. Blood collected. Flushed with 10 mL NS. 05:26 CT Stone Protocol In Process Unspecified. EDMS 07:05 IV discontinued, intact, bleeding controlled, No redness/swelling at site. Pressure vc1 dressing applied. Administered Medications: 04:21 Drug: fentaNYL (PF) IVP 25 mcg IVP once Route: IVP; Site: right antecubital; cp4 05:36 Follow up: Response: No adverse reaction; Pain is decreased cp4 04:21 Drug: Ondansetron IVP 4 mg IVP once; over 2 minutes Route: IVP; Site: right antecubital;cp4 05:35 Follow up: Response: No adverse reaction cp4 04:22 Drug: NS 0.9% IV 1000 ml IV at 1000 ml once; to be given as a bolus over 60 minutes cp4 Route: IV; Rate: 1000 ml; Site: right antecubital; 05:36 Follow up: IV Status: Completed infusion cp4 05:35 Drug: fentaNYL (PF) IVP 50 mcg IVP once Route: IVP; Site: right antecubital; cp4 06:36 Follow up: Response: No adverse reaction cp4 05:35 Drug: Ketorolac IVP 30 mg IVP once Route: IVP; Site: right antecubital; cp4 06:36 Follow up: Response: No adverse reaction cp4 05:35 Drug: Droperidol IVP 2.5 mg IVP once Route: IVP; Site: right antecubital; cp4 06:35 Follow up: Response: No adverse reaction cp4 05:35 Drug: Rocephin - Rocephin (cefTRIAXone) IVPB 1 grams IVPB once over 30 mins; (mix in 50 cp4 mL NS) Route: IVPB; Infused Over: 30 mins; Site: right antecubital; 05:36 Follow up: IV Status: Completed infusion cp4 06:39 Drug: HYDROcodone-acetaminophen PO 5 mg-325 mg 2 tabs PO once Route: PO; cp4 06:39 Follow up: Response: No adverse reaction cp4 06:39 Drug: Cefdinir PO 300 mg PO once Route: PO; cp4 06:39 Follow up: Response: No adverse reaction cp4 Medication: 04:07 VIS not applicable for this client. vc1 Outcome: 06:31 Discharge ordered by MD. miles 07:04 Discharged to home vc1 07:04 Condition: stable 07:04 Discharge instructions given to patient, Instructed on discharge instructions, follow up and referral plans. medication usage, Demonstrated understanding of instructions, follow-up care, medications, Prescriptions given X 4, 07:05 Patient left the ED. vc1 Signatures: Dispatcher [employer] RADAMESMS Summer Colbert RN RN vc1 Brando Rosado MD MD sp4 Liat Aldana 4 Sheyla May 2 Jacquelyn Moses RN RN [id number]
--- NOTE | 2024-10-04 06:31 | EDPHYS ---
Physician Documentation [facility] Name: Joana Casey Age: 39 yrs Sex: Female : 1985 Arrival Date: 10/04/2024 Time: 03:36 Bed 8 Private MD: ED Physician Brando Rosado HPI: 10/04 05:04 This 39 yrs old Female presents to ER via Ambulatory with complaints of Rt sp4 side abd pain. 10/05 01:06 Presents with acute right flank pain.. sp4 DOPER: 10/04 04:07 LMP 09/25/2024, unknown vc1 Historical: - Allergies: 04:06 Eggs; vc1 04:06 Morphine (Respiratory distress); vc1 04:06 Tomato (Solanum Lycopersicum); vc1 - PMHx: 04:06 Anxiety; depressive disorder; Hypertension; Migraine; psych; Seizures; vc1 - PSHx: 04:06 Appendectomy; Cholecystectomy; vc1 - Immunization history:: Adult Immunizations up to date. - Infectious Disease History:: Denies. - Social history:: Smoking status: Reported history of juuling and/or vaping. - Family history:: not pertinent. ROS: 10/05 01:06 Constitutional: Negative for fever, chills, and weight loss, positive right flank pain sp4 All other systems are negative, Exam: 01:06 Constitutional: This is a well developed, well nourished patient who is awake, alert, sp4 and in no acute distress. Head/Face: Normocephalic, atraumatic. Eyes: Pupils equal round and reactive to light, extra-ocular motions intact. Lids and lashes normal. Conjunctiva and sclera are not injected. Cornea within normal limits. Periorbital areas with no swelling, redness, or edema. ENT: Nares patent. No nasal discharge, no septal abnormalities noted. Tympanic membranes are normal and external auditory canals are clear. Oropharynx with no redness, swelling, or masses, exudates, or evidence of obstruction, uvula midline. Mucous membranes moist. Neck: Trachea midline, no thyromegaly or masses palpated, and no cervical lymphadenopathy. Supple, full range of motion without nuchal rigidity, or vertebral point tenderness. Chest/axilla: Normal chest wall appearance and motion. Nontender with no deformity. No lesions are appreciated. Cardiovascular: Regular rate and rhythm with a normal S1 and S2. No gallops, murmurs, or rubs. No pulse deficits. Respiratory: Lungs have equal breath sounds bilaterally, clear to auscultation and percussion. No rales, rhonchi or wheezes noted. No increased work of breathing, no retractions or nasal flaring. Abdomen/GI: Soft, with normal bowel sounds. No distension or tympany. No guarding or rebound. No evidence of tenderness throughout. Back: No spinal tenderness. No costovertebral tenderness. Skin: Warm, dry with normal turgor. Normal color with no rashes, no lesions, and no evidence of cellulitis. MS/ Extremity: Pulses equal, no cyanosis. Neurovascular intact. Full, normal range of motion. Neuro: Awake and alert, GCS 15, oriented to person, place, time, and situation. Cranial nerves II-XII grossly intact. Motor strength 5/5 in all extremities. Sensory grossly intact. Psych: Awake, alert, with orientation to person, place and time. Behavior, mood, and affect are within normal limits Vital Signs: 10/04 04:04 BP 136 / 96; Pulse 92; Resp 18; Temp 98.6; Pulse Ox 100% ; Weight 77.11 kg; Height 5 vc1 ft. 7 in. ; Pain 8/10; 06:08 BP 118 / 82; Pulse 84; Resp 18; Pulse Ox 99% ; cp4 06:59 BP 119 / 88; Pulse 90; Resp 18; Pulse Ox 100% ; cp4 04:04 Body Mass Index 26.63 (77.11 kg, 170.18 cm) vc1 04:04 Pain Scale: Adult vc1 Abiel Coma Score: 10/05 01:06 Eye Response: spontaneous(4). Motor Response: obeys commands(6). Verbal Response: sp4 oriented(5). Total: 15. MDM: 10/04 04:47 Medical Screening Exam initiated sp4 06:18 ED course: INDICATION: ABD PAIN COMPARISON: CT abdomen pelvis July 10, 2021 TECHNIQUE: sp4 Unenhanced CT of the abdomen and pelvis performed per protocol. Oral contrast was not administered. Multiplanar reconstructions were provided. Dose reduction techniques were utilized for this exam including automated exposure control, adjustments to mA and/or kV according to patient's size, and the use of iterative reconstruction techniques. FINDINGS: Lack of intravenous contrast limits evaluation of the viscera and vasculature. LOWER CHEST: Lung bases are clear. LIVER: Unremarkable. SPLEEN: Unremarkable. PANCREAS: Unremarkable. ADRENALS: Unremarkable. KIDNEYS: Mild asymmetric fullness of the right collecting system, similar to prior exam. Kidneys otherwise unremarkable. GALLBLADDER: Surgically absent. VESSELS: Mild aortic atherosclerosis without aneurysmal dilatation. BOWEL: Small hiatal hernia. No bowel obstruction. APPENDIX: Surgically absent. FLUID: No free fluid or abnormal fluid collection. ADENOPATHY: No pathologic adenopathy. BLADDER: Unremarkable. PELVIS: Uterus and adnexa are unremarkable. BONES: No acute bony abnormality. SOFT TISSUES: Unremarkable. IMPRESSION: No acute abdominopelvic findings on this unenhanced exam. Electronically signed by: Gera Vila DO 10/04/2024 06:03 AM. 10/05 01:06 Differential diagnosis: appendicitis, bowel obstruction, Endometriosis, gastritis, sp4 gastroesophageal reflux disease, Hepatitis. Data reviewed: vital signs, nurses notes, lab test result(s), radiologic studies, CT scan. Consideration of Admission/Observation Escalation of care including admission/observation considered. ED course: CT is negative. Patient stable for discharge home.. 10/04 04:01 Order name: CBC with Diff; Complete Time: 05:04 sp4 10/04 04:01 Order name: CMP; Complete Time: 05:04 sp4 10/04 04:01 Order name: Lipase; Complete Time: 05:04 sp4 10/04 04:01 Order name: Test, Urine; Complete Time: 05:04 sp4 10/04 04:01 Order name: UA Rfx Damon Cult if indicated; Complete Time: 05:04 sp4 10/04 05:06 Order name: Urine Culture EDMS 10/04 04:03 Order name: CT Stone Protocol 4 10/04 04:01 Order name: IV Saline Lock; Complete Time: 04: sp4 10/04 04:01 Order name: Labs collected and sent; Complete Time: 04:22 sp4 Administered Medications: 10/04 04:21 Drug: fentaNYL (PF) IVP 25 mcg IVP once Route: IVP; Site: right antecubital; cp4 05:36 Follow up: Response: No adverse reaction; Pain is decreased cp4 04:21 Drug: Ondansetron IVP 4 mg IVP once; over 2 minutes Route: IVP; Site: right antecubital;cp4 05:35 Follow up: Response: No adverse reaction cp4 04:22 Drug: NS 0.9% IV 1000 ml IV at 1000 ml once; to be given as a bolus over 60 minutes cp4 Route: IV; Rate: 1000 ml; Site: right antecubital; 05:36 Follow up: IV Status: Completed infusion cp4 05:35 Drug: fentaNYL (PF) IVP 50 mcg IVP once Route: IVP; Site: right antecubital; cp4 06:36 Follow up: Response: No adverse reaction cp4 05:35 Drug: Ketorolac IVP 30 mg IVP once Route: IVP; Site: right antecubital; cp4 06:36 Follow up: Response: No adverse reaction cp4 05:35 Drug: Droperidol IVP 2.5 mg IVP once Route: IVP; Site: right antecubital; cp4 06:35 Follow up: Response: No adverse reaction cp4 05:35 Drug: Rocephin - Rocephin (cefTRIAXone) IVPB 1 grams IVPB once over 30 mins; (mix in 50 cp4 mL NS) Route: IVPB; Infused Over: 30 mins; Site: right antecubital; 05:36 Follow up: IV Status: Completed infusion cp4 06:39 Drug: HYDROcodone-acetaminophen PO 5 mg-325 mg 2 tabs PO once Route: PO; cp4 06:39 Follow up: Response: No adverse reaction cp4 06:39 Drug: Cefdinir PO 300 mg PO once Route: PO; cp4 06:39 Follow up: Response: No adverse reaction cp4 Disposition: 10/05 01:08 Chart complete. sp4 Disposition Summary: 10/04/24 06:31 Discharge Ordered Notes: Location: Home sp4 Problem: new sp4 Symptoms: have improved sp4 Condition: Stable sp4 Diagnosis - UTI/ Urinary tract infection, site not specified sp4 - Acute cystitis with a right flank pain sp4 Followup: sp4 - With: Private Physician - When: 7 - 10 days - Reason: Recheck today's complaints Discharge Instructions: - Discharge Summary Sheet sp4 - Urinary Tract Infection, Adult, [id number] sp4 Forms: - Patient Portal Instructions sp4 Prescriptions: - cefdinir 300 mg Oral capsule - take 1 capsule ORAL route every 12 hours for 10 days; 20 capsule; Refills: 0, sp4 Product Selection Permitted - ketorolac 10 mg Oral tablet - take 1 tablet ORAL route every 8 hours PRN pain; 30 tablet; Refills: 0, Product sp4 Selection Permitted - Tramadol 50 mg Oral tablet - take 1 tablet ORAL route every 8 hours as needed; 20 tablet; Refills: 0, sp4 Product Selection Permitted - promethazine 25 mg Oral Tablet - take 1 tablet ORAL route every 6 hours As needed; 20 tablet; Refills: 0, sp4 Product Selection Permitted Signatures: Dispatcher [employer] Summer Valle RN RN vc1 Brando Rosado MD MD sp4 Liat Aldana cp4
[2024-10-04] MEDS ORDERED: HYDROCODONE/APAP 5/325 MG TAB ONE (06:37)
[2024-10-04] MEDS ORDERED: CEFDINIR 300 MG CAP PO ONE (06:37)
--- NOTE | 2024-10-04 06:42 | RAD REPORT ---
INDICATION: ABD PAIN COMPARISON: CT abdomen pelvis July 10, 2021 TECHNIQUE: Unenhanced CT of the abdomen and pelvis performed per protocol. Oral contrast was not administered. M ultiplanar reconstructions were provided. Dose reduction techniques were utilized for this exam including automated exposure control, adjustmen ts to mA and/or kV according to patient's size, and the use of iterative reconstruction techniques. FINDINGS: Lack of intravenous contrast limits evaluation of the viscera and vasculature. LOWER CHEST: Lung bases are clear. LIVER: Unremarkable. SPLEEN: Unremarkable. PANCREAS: Unremarkable. ADRENALS: Unremarkable. KIDNEYS: Mild asymmetric fullness of the right collecting system, similar to prior exam. Kidneys othe rwise unremarkable. GALLBLADDER: Surgically absent. VESSELS: Mild aortic atherosclerosis without aneurysmal dilatation. BOWEL: Small hiatal hernia. No bowel obstruction. APPENDIX: Surgically absent. FLUID: No free fluid or abnormal fluid collection. ADENOPATHY: No pathologic adenopathy. BLADDER: Unremarkable. PELVIS: Uterus and adnexa are unremarkable. BONES: No acute bony abnormality. SOFT TISSUES: Unremarkable. IMPRESSION: No acute abdominopelvic findings on this unenhanced exam. Electronically signed by: Gera Vila DO 10/04/2024 06:03 AM CDT RP NR Due to temporary technical issues with the PACS/Create reporting system, reports are being sandra d by the in-house radiologist without review as a courtesy to ensure prompt reporting the interpreting radiologist is fully responsible for the content of the report. Transcribed Date/Time: 10/04/2024 6:42 AM
[2024-10-04 07:11] VITALS: TEMP 98.6
[2024-10-04 07:14] VITALS: BP 119/88; O2SAT 100
== END 2024-10-04 07:05 | disposition home or self-care (01) ==
LOC: ER 03:36
DX: N30.00 Acute cystitis without hematuria (principal)
CPT/HCPCS: 36415; 74176; 76377; 80053; 81001; 81025; 83690; 85025; 87077; 87086; 87088; 87186; 96361; 96374; 96375; 99284; J0696; J1790; J2405; J3010; J7030